=== PATIENT | male | born 1950 | race Caucasian/White ===

== ENCOUNTER 2020-01-09 13:56 | Outpatient (REF) | payer MEDICARE, MEDICAID, SELFPAY ==
[2020-01-09 14:29] LABS: MANUAL DIFF FLAG NO
[2020-01-09 14:42] LABS: Basophils Absolute Auto 0.1 X10*3/uL (0.0-0.2); Basophils Percent Auto 0.8 % (0-2); Eosinophils Absolute Auto 0.8 X10*3/uL (0.0-0.4); Eosinophils Percent Auto 8.6 % (0-4); Hematocrit 43.3 % (42-52); Hemoglobin 14.8 g/dl (14.0-18.0); Imm Gran Abs Auto 0.04 X10*3/uL (0.00-0.03); Imm Gran Pct Auto 0.4 % (0.0-0.4); Lymphocytes Absolute Auto 2.7 X10*3/uL (1.2-4.9); Lymphocytes Percent Auto 29.6 % (20-40); Mean Corpuscular HGB Conc 34.2 g/dl (31.0-36.0); Mean Corpuscular Hemoglobin 33.7 pg (27.0-33.0); Mean Corpuscular Volume 98.6 fL (80-98); Mean Platelet Volume 10.1 fL (9.4-12.4); Monocytes Absolute Auto 1.2 X10*3/uL (0.1-1.2); Neutrophils Absolute Auto 4.3 X10*3/uL (2.0-8.3); Neutrophils Percent Auto 47.6 % (45-73); Platelet Count 204 X10*3/uL (160-400); Red Blood Count 4.39 X10*6/uL (4.60-5.80); Red Cell Distribution Width 12.4 % (11.0-16.0)
[2020-01-09 14:51] LABS: Estimated Average Glucose 120 mg/dL; Hemoglobin A1c % 5.8 %
[2020-01-09 15:23] LABS: Alanine Aminotransferase 21 U/L (0-40); Albumin Level 4.2 g/dL (3.5-5.0); Alkaline Phosphatase 88 U/L (39-117); Aspartate Amino Transferase 21 U/L (5-37); Bilirubin Total 0.7 mg/dL (0.0-1.0); Blood Urea Nitrogen 12 mg/dL (9-16); Estimated Glomerular Filt Rate > 60; Glucose Random 81 mg/dL (60-115); Total Protein 6.5 g/dL (6.5-8.0)
[2020-01-09 15:28] LABS: Free T4 (Free Thyroxine) 0.95 ng/dL (0.71-1.85); Prostate Specific Antigen 0.72 ng/mL (<0.05-4.0); Thyroid Stimulating Hormone 2.27 mIU/mL (0.32-4.0)
[2020-01-09 15:30] LABS: Creatinine Urine 203.42 mg/dL; Microalbum/Creatinine Ratio Ur 7.8 ug/mg cr
[2020-01-09 15:37] LABS: Anion Gap 13 (12-20); Carbon Dioxide 28 mmol/L (22-29); Chloride 105 mmol/L (96-108); Potassium 5.1 mmol/l (3.3-5.1); Sodium 141 mmol/L (135-145)
== END 2020-01-09 13:57 | disposition home or self-care (01) ==
LOC: HO.LAB 13:56
PROVIDERS: PCP Internal Medicine; Visit Provider Internal Medicine
DX: Z12.5 Encounter for screening for malignant neoplasm of prostate (principal); I10 Essential (primary) hypertension; E03.9 Hypothyroidism, unspecified; R73.03 Prediabetes; R35.1 Nocturia; I25.10 Atherosclerotic heart disease of native coronary artery without angina pectoris
CPT/HCPCS: 36415; 80053; 82043; 83036; 84153; 84439; 84443; 85025

== ENCOUNTER → 2020-01-18 13:10 | Outpatient (BNVA) | payer MEDICARE, MEDICAID, SELFPAY | PROVIDERS: PCP Internal Medicine; Referring Provider Internal Medicine; Visit Provider Internal Medicine | DX: I48.20 Chronic atrial fibrillation, unspecified (principal); Z79.01 Long term (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; Z51.81 Encounter for therapeutic drug level monitoring | CPT/HCPCS: 85610; 99211 ==

== ENCOUNTER → 2020-02-06 09:25 | Outpatient (BNVA) | payer MEDICARE, MEDICAID, SELFPAY | PROVIDERS: PCP Internal Medicine; Referring Provider Internal Medicine; Visit Provider Internal Medicine | DX: I48.20 Chronic atrial fibrillation, unspecified (principal); Z51.81 Encounter for therapeutic drug level monitoring; Z79.01 Long term (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 | CPT/HCPCS: 85610; 99211 ==

== ENCOUNTER → 2020-02-21 09:20 | Outpatient (BNVA) | payer MEDICARE, MEDICAID, SELFPAY | PROVIDERS: PCP Internal Medicine; Visit Provider Internal Medicine | DX: I48.20 Chronic atrial fibrillation, unspecified (principal); Z51.81 Encounter for therapeutic drug level monitoring; Z79.01 Long term (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 | CPT/HCPCS: 85610; 99211 ==

== ENCOUNTER → 2020-03-20 09:12 | Outpatient (BNVA) | payer MEDICARE, MEDICAID, SELFPAY | PROVIDERS: PCP Internal Medicine; Visit Provider Internal Medicine | DX: I48.20 Chronic atrial fibrillation, unspecified (principal); Z51.81 Encounter for therapeutic drug level monitoring; Z79.01 Long term (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 | CPT/HCPCS: 85610; 99211 ==

== ENCOUNTER → 2020-04-19 09:49 | Outpatient (BNVA) | payer MEDICARE, MEDICAID, SELFPAY | PROVIDERS: PCP Internal Medicine; Visit Provider Internal Medicine | DX: I48.20 Chronic atrial fibrillation, unspecified (principal); Z51.81 Encounter for therapeutic drug level monitoring; Z79.01 Long term (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 | CPT/HCPCS: 85610; 99211 ==

== ENCOUNTER → 2020-05-02 09:33 | Outpatient (BNVA) | payer MEDICARE, MEDICAID, SELFPAY | PROVIDERS: PCP Internal Medicine; Visit Provider Internal Medicine | DX: I25.10 Atherosclerotic heart disease of native coronary artery without angina pectoris (principal); I48.0 Paroxysmal atrial fibrillation; E78.5 Hyperlipidemia, unspecified; Z79.01 Long term (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 | CPT/HCPCS: 93005; 99212 ==

== ENCOUNTER → 2020-05-03 09:54 | Outpatient (BNVA) | payer MEDICARE, MEDICAID, SELFPAY | PROVIDERS: PCP Internal Medicine; Visit Provider Internal Medicine | DX: I48.20 Chronic atrial fibrillation, unspecified (principal); Z51.81 Encounter for therapeutic drug level monitoring; Z79.01 Long term (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 | CPT/HCPCS: 85610; 99211 ==

== ENCOUNTER → 2020-05-31 09:17 | Outpatient (BNVA) | payer MEDICARE, MEDICAID, SELFPAY | PROVIDERS: PCP Internal Medicine; Visit Provider Internal Medicine | DX: I48.20 Chronic atrial fibrillation, unspecified (principal); Z51.81 Encounter for therapeutic drug level monitoring; Z79.01 Long term (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 | CPT/HCPCS: 85610; 99211 ==

== ENCOUNTER → 2020-06-10 09:54 | Outpatient (REF) | payer MEDICARE, MEDICAID, SELFPAY ==
--- NOTE | 2020-06-10 09:58 | CA_ITS ---
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 The visually estimated ejection fraction is between 60-65%. - There is mild mitral valve regurgitation. Findings Left Ventricle Normal left ventricular cavity size. There is mildly increased left ventricular wall thickness. The left ventricular systolic function is normal. The visually estimated ejection fraction is between 60-65%. There is no evidence of regional wall motion abnormalities. E/E prime ratio is between 8 and 15 consistent with indeterminate filling pressures. Evidence suggests grade I (mild) diastolic dysfunction. Right Ventricle Normal right ventricular cavity size and systolic function. Atria The left atrium is normal in size. The right atrium is normal in size. Aortic Valve There is a normal trileaflet aortic valve. There is no aortic valve stenosis. There is no aortic valve regurgitation. Mitral Valve The mitral valve appears normal. There is mild mitral valve regurgitation. There is no mitral valve stenosis. Pulmonic Valve The pulmonic valve was not well visualized. Tricuspid Valve Normal tricuspid valve structure. There is trace tricuspid valve regurgitation. The pulmonary artery systolic pressure is normal. Great Vessels The asc aorta is normal in size. Venous The inferior vena cava is normal in size and collapses greater than 50% with inspiration. Pericardium/Pleural There is no evidence of pericardial effusion. Prior Study Comparison No significant change compared to prior study dated: 04/24/2019. Measurements 2D Linear Measurements IVSd: 1.15 0.6-0.9/0.6-1.0 cm LVIDd: 4.64 3.9-5.3/4.2-5.9 cm LVIDd Index: 2.04 2.4-3.2/2.2-3.1 cm/m2 LVIDs: 3.55 2.0-3.6 cm LVPWd: 1.24 0.7-1.1 cm Ao Root: 3.70 2.1-3.5 cm LA Diam: 3.90 2.7-3.8/3.0-4.0 cm LAIDs Index: 1.72 1.5-2.3 cm/m2 LV Mass: 257.43 67-162/88-224 g LV Mass Index: 113.41 43-95/49-115 g/m2 LVOT Diam: 2.10 3.0+(-)1.3 cm 2D Systolic Function EF 4C: 69.20 >55% EF 2C: 62.30 >55% EF BiP: 65.30 >55% Mitral Valve MV Pk E: 0.90 MV PK A: 0.80 MV Decel Time: 164.00 E/A: 1.10 E'Lateral: 8.90 E'Medial: 6.38 E/E' Med: 14.10 E/E' Lat: 10.10 PHT: 48.00 MVA PHT: 4.58 Decel Pine: 5.51 Aortic Valve AoV Pk Cristi: 1.03 AoV Pk Grad: 4.00 LVOT LVOT Pk Cristi: 0.83 LVOT Mn Cristi: 0.60 LVOT VTI: 0.20 LVOT Pk Grad: 3.00 LVOT Mn Grad: 2.00 LVOT Diam: 2.10 LVOT Area: 3.46 Diastolic Function MV Pk E: 0.90 MV Pk A: 0.80 E/A: 1.10 E'Medial: 6.38 E/E' Med: 14.10 E' Laterial: 8.90 E/E' Lat: 10.10 Tricuspid Valve TR Pk Cristi: 2.28 TR Pk Grad: 21.00 RA Press: 3.00 RVSP: 24.00 Great Vessels Aorta Ao Root-2D: 3.70 2.0-3.7 cm Ao Asc: 3.50 2.1-3.4 cm Updated in Other Vendor System with Status of Final Jayro Mendez MD electronically signed on 06/10/2020 11:49:02 AM with status of Final
== END ==
LOC: HO.CARD 09:54
PROVIDERS: Visit Provider Internal Medicine
DX: I48.0 Paroxysmal atrial fibrillation (principal); I25.10 Atherosclerotic heart disease of native coronary artery without angina pectoris
CPT/HCPCS: 93306

== ENCOUNTER → 2020-07-03 09:07 | Outpatient (BNVA) | payer MEDICARE, MEDICAID, SELFPAY | PROVIDERS: PCP Internal Medicine; Visit Provider Internal Medicine | DX: I48.20 Chronic atrial fibrillation, unspecified (principal); Z51.81 Encounter for therapeutic drug level monitoring; Z79.01 Long term (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 | CPT/HCPCS: 85610; 99211 ==

== ENCOUNTER → 2020-07-09 10:46 | Outpatient (BNVA) | payer MEDICARE, MEDICAID, SELFPAY | PROVIDERS: PCP Internal Medicine; Visit Provider Internal Medicine | DX: I48.0 Paroxysmal atrial fibrillation (principal); Z79.01 Long term (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; Z51.81 Encounter for therapeutic drug level monitoring | CPT/HCPCS: 85610; 99211 ==

== ENCOUNTER → 2020-07-17 09:20 | Outpatient (BNVA) | payer MEDICARE, MEDICAID, SELFPAY | PROVIDERS: PCP Internal Medicine; Visit Provider Internal Medicine | DX: I48.20 Chronic atrial fibrillation, unspecified (principal); Z51.81 Encounter for therapeutic drug level monitoring; Z79.01 Long term (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 | CPT/HCPCS: 85610; 99211 ==

== ENCOUNTER → 2020-08-14 08:57 | Outpatient (BNVA) | payer MEDICARE, MEDICAID, SELFPAY | PROVIDERS: PCP Internal Medicine; Visit Provider Internal Medicine | DX: I48.20 Chronic atrial fibrillation, unspecified (principal); Z51.81 Encounter for therapeutic drug level monitoring; Z79.01 Long term (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 | CPT/HCPCS: 85610; 99211 ==

== ENCOUNTER → 2020-09-11 09:37 | Outpatient (BNVA) | payer MEDICARE, MEDICAID, SELFPAY | PROVIDERS: PCP Internal Medicine; Visit Provider Internal Medicine | DX: I48.20 Chronic atrial fibrillation, unspecified (principal); Z51.81 Encounter for therapeutic drug level monitoring; Z79.01 Long term (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 | CPT/HCPCS: 85610; 99211 ==

== ENCOUNTER → 2020-10-09 09:21 | Outpatient (BNVA) | payer MEDICARE, MEDICAID, SELFPAY | PROVIDERS: PCP Internal Medicine; Visit Provider Internal Medicine | DX: I48.20 Chronic atrial fibrillation, unspecified (principal); Z51.81 Encounter for therapeutic drug level monitoring; Z79.01 Long term (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 | CPT/HCPCS: 85610; 99211 ==

== ENCOUNTER → 2020-11-06 09:58 | Outpatient (BNVA) | payer MEDICARE, MEDICAID, SELFPAY | PROVIDERS: PCP Internal Medicine; Visit Provider Internal Medicine | DX: I48.20 Chronic atrial fibrillation, unspecified (principal); Z51.81 Encounter for therapeutic drug level monitoring; Z79.01 Long term (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 | CPT/HCPCS: 85610; 99211 ==

== ENCOUNTER → 2020-12-04 09:16 | Outpatient (BNVA) | payer MEDICARE, MEDICAID, SELFPAY | PROVIDERS: PCP Internal Medicine; Visit Provider Internal Medicine | DX: I48.20 Chronic atrial fibrillation, unspecified (principal); Z51.81 Encounter for therapeutic drug level monitoring; Z79.01 Long term (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 | CPT/HCPCS: 85610; 99211 ==

== ENCOUNTER → 2021-01-01 09:13 | Outpatient (BNVA) | payer MEDICARE, MEDICAID, SELFPAY | PROVIDERS: PCP Internal Medicine; Visit Provider Internal Medicine | DX: I48.20 Chronic atrial fibrillation, unspecified (principal); Z51.81 Encounter for therapeutic drug level monitoring; Z79.01 Long term (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 | CPT/HCPCS: 85610; 99211 ==

== ENCOUNTER 2021-01-09 10:27 | Outpatient (REF) | payer MEDICARE, MEDICAID, SELFPAY ==
[2021-01-09 13:39] LABS: MANUAL DIFF FLAG NO
[2021-01-09 13:47] LABS: Basophils Absolute Auto 0.1 X10*3/uL (0.0-0.2); Basophils Percent Auto 0.7 % (0-2); Eosinophils Absolute Auto 0.7 X10*3/uL (0.0-0.4); Eosinophils Percent Auto 9.3 % (0-4); Hematocrit 45.1 % (42-52); Hemoglobin 15.4 g/dl (14.0-18.0); Imm Gran Abs Auto 0.02 X10*3/uL (0.00-0.03); Imm Gran Pct Auto 0.3 % (0.0-0.4); Lymphocytes Absolute Auto 1.8 X10*3/uL (1.2-4.9); Mean Corpuscular HGB Conc 34.1 g/dl (31.0-36.0); Mean Corpuscular Hemoglobin 33.6 pg (27.0-33.0); Mean Corpuscular Volume 98.5 fL (80-98); Mean Platelet Volume 10.5 fL (9.4-12.4); Monocytes Absolute Auto 0.8 X10*3/uL (0.1-1.2); Monocytes Percent Auto 11.2 % (2-11); Neutrophils Absolute Auto 3.9 X10*3/uL (2.0-8.3); Neutrophils Percent Auto 53.5 % (45-73); Platelet Count 196 X10*3/uL (160-400); Red Blood Count 4.58 X10*6/uL (4.60-5.80); Red Cell Distribution Width 12.9 % (11.0-16.0); White Blood Count 7.4 X10*3/uL (4.8-10.8)
[2021-01-09 14:06] LABS: Alanine Aminotransferase 22 U/L (0-40); Albumin Level 4.1 g/dL (3.5-5.0); Alkaline Phosphatase 85 U/L (39-117); Anion Gap 10 (12-20); Aspartate Amino Transferase 22 U/L (5-37); Bilirubin Total 0.8 mg/dL (0.0-1.0); Blood Urea Nitrogen 10 mg/dL (9-16); Calcium 9.2 mg/dL (8.4-10.2); Carbon Dioxide 28 mmol/L (22-29); Chloride 108 mmol/L (96-108); Cholesterol 116 mg/dL; Estimated Glomerular Filt Rate > 60; Glucose Random 112 mg/dL (60-115); HDL Cholesterol 24 mg/dL; LDL Cholesterol Calculated 49 mg/dl; Potassium 4.7 mmol/L (3.3-5.1); Sodium 141 mmol/L (135-145); Total Protein 6.2 g/dL (6.5-8.0); Triglycerides 215 mg/dL
[2021-01-09 14:27] LABS: Thyroid Stimulating Hormone 1.84 uIU/mL (0.32-4.0)
== END 2021-01-09 10:28 | disposition home or self-care (01) ==
LOC: HO.10HDL 10:27
PROVIDERS: Visit Provider Internal Medicine
DX: E03.9 Hypothyroidism, unspecified (principal); I48.0 Paroxysmal atrial fibrillation; E78.00 Pure hypercholesterolemia, unspecified; I25.10 Atherosclerotic heart disease of native coronary artery without angina pectoris
CPT/HCPCS: 36415; 80053; 80061; 84439; 84443; 85025

== ENCOUNTER → 2021-01-29 09:32 | Outpatient (BNVA) | payer MEDICARE, MEDICAID, SELFPAY | PROVIDERS: PCP Internal Medicine; Visit Provider Internal Medicine | DX: I48.20 Chronic atrial fibrillation, unspecified (principal); Z51.81 Encounter for therapeutic drug level monitoring; Z79.01 Long term (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 | CPT/HCPCS: 85610; 99211 ==

== ENCOUNTER → 2021-02-19 09:08 | Outpatient (BNVA) | payer MEDICARE, MEDICAID, SELFPAY | PROVIDERS: PCP Internal Medicine; Visit Provider Internal Medicine | DX: I48.20 Chronic atrial fibrillation, unspecified (principal); Z51.81 Encounter for therapeutic drug level monitoring; Z79.01 Long term (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 | CPT/HCPCS: 85610; 99211 ==

== ENCOUNTER → 2021-03-19 09:35 | Outpatient (BNVA) | payer MEDICARE, MEDICAID, SELFPAY | PROVIDERS: PCP Internal Medicine; Visit Provider Internal Medicine | DX: I48.20 Chronic atrial fibrillation, unspecified (principal); Z51.81 Encounter for therapeutic drug level monitoring; Z79.01 Long term (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 | CPT/HCPCS: 85610; 99211 ==

== ENCOUNTER 2021-04-02 09:13 | Emergency (ER) | payer MEDICARE, MEDICAID, SELFPAY ==
[2021-04-02 09:53] VITALS: BP 147/76; PULSE 61; RESP 19; TEMP 36.6; O2SAT 100; BMI 33.5
--- NOTE | 2021-04-02 13:01 | ED.GENADULT ---
HPI - General Adult General Chief complaint: General Medical Stated complaint: hemmhroids History of Present Illness HPI narrative: 70-year-old male presents to the ED for rectal pain. Patient states he was doing number 2 And was straining and felt a mass at rectum and had blood on toilet tissue after wiping. Patient denies any abdominal pain, weakness, nausea, vomiting, any recent trauma. Patient states he thinks he have a hemorrhoid Related Data Home Medications Medication Instructions Recorded Confirmed atorvastatin 40 mg tablet 40 mg PO DAILY 05/02/20 07/03/20 cholecalciferol (vitamin D3) 25 25 mcg PO DAILY 05/02/20 07/03/20 mcg (1,000 unit) capsule levothyroxine 88 mcg tablet 88 mcg PO DAILY 05/02/20 07/03/20 metoprolol tartrate 50 mg tablet 50 mg PO BID 05/02/20 07/03/20 nitroglycerin 0.3 mg sublingual 0.3 mg SUBLINGUAL Q5M PRN 05/02/20 07/03/20 tablet omega-3 fatty acids 1,000 mg 1,000 mg PO DAILY 05/02/20 07/03/20 capsule (Fish Oil Concentrate) Previous Rx's Medication Instructions Recorded warfarin 7.5 mg tablet 7.5 mg PO DAILY #90 tab 01/18/20 docusate sodium 100 mg capsule 100 mg PO BID 7 Days #14 cap 04/02/21 (Colace) lidocaine 3 %-hydrocortisone 0.5 % 1 appl TOPICAL BID 7 Days #28.35 g 04/02/21 topical cream (Lidocort) Allergies Allergy/AdvReac Type Severity Reaction Status Date / Time No Known Allergies Allergy Verified 03/19/21 09:39 Review of Systems Review of Systems: Hemorrhoid. Blood in tissue. Rectal pain Yes all other systems are reviewed and are negative [facility] Past Medical History Medical History (Updated 04/02/21 @ 13:20 by VIRGIL Olea) Atherosclerotic cardiovascular disease Other and unspecified hyperlipidemia PAF (paroxysmal atrial fibrillation) Surgical History History of cardiac catheterization (~12/2011) Family History Family History Father Cancer Mother No problems noted. Social History Social History Advance Directives: No Advance Directives Information Provided: No Physical Exam Vital Signs: Vital Signs: Last Vital Signs Temp 98 F 04/02/21 09:53 Pulse 61 04/02/21 09:53 Resp 19 04/02/21 09:53 BP 147/76 H 04/02/21 09:53 Pulse Ox 100 04/02/21 09:53 BMI result Body Mass Index 33.5 Const: General: cooperative, healthy appearing, comfortable, no acute distress, well developed, alert, awake and Physically active Orientation/consciousness: patient oriented x3 HENMT: Head: Yes normal to inspection, Yes No palpable skull fracture present, Yes normocephalic, Yes atraumatic and No abrasion Eyes: General: appearance normal, both eyes and all related structures Neck: Neck: Yes normal visual inspection, Yes full ROM, Yes no lymphadenopathy, Yes no meningeal signs, Yes trachea midline, Yes supple, No anterior neck swelling and No tender Chest: Chest palpation & inspection: normal inspection of the chest and normal palpation of entire chest wall Resp: Effort & Inspection: normal respiratory effort and able to speak in complete sentences Auscultation: clear to auscultation bilaterally Cardio: Jugular venous distension: no JVD Heart sounds: S1 normal heart sound present and S2 normal heart sound present GI: Other: Recta exam positive for external hemmhroid that is not thrombosed. Inspection: Yes normal to inspection and No abdominal wall ecchymosis Palpation (GI): Soft to palpation, not firm, nontender, no guarding and not rigid : General: No CVA tenderness and Yes no CVA tenderness Back/Spine/Pelvis: Back: no CVA tenderness, No CVA tenderness and No back tenderness Skin: General skin exam: no rashes or lesions noted and elasticity normal Neuro: General: patient oriented x3, gait normal, no meningeal signs and CN's II-XI intact bilaterally Cranial nerves: Yes CN's II-XII intact bilaterally Extrem: General: Yes normal to inspection and Yes full ROM Psych: Appearance: grossly normal, well kempt and not disheveled Course Course Course Narrative: External hemorrhoid Reevaluation(s) Reevaluation #1: No hemorrhoid excision indicated. Patient will be discharged with stool softener, and rectal cream. Time: 13:18 Medical Decision Making MDM Narrative Medical decision making narrative: external hemmhroids Discharge Plan Discharge Clinical Impression: External hemorrhoids Patient Disposition: Home, Self-Care Instructions: Hemorrhoids (ED) Additional Instructions: Return to the ED for worsening pain, profuse bleeding, weakness, dizziness, or any other concerning symptoms Prescriptions: New lidocaine HCl-hydrocortison ac [Lidocort] 3-0.5 % cream 1 appl topical BID 7 Days Qty: 28.35 RF: 0 docusate sodium [Colace] 100 mg capsule 100 mg PO BID 7 Days Qty: 14 RF: 0 No Action warfarin 7.5 mg tablet 7.5 mg PO DAILY Qty: 90 RF: 0 metoprolol tartrate 50 mg tablet 50 mg PO BID RF: 0 levothyroxine 88 mcg tablet 88 mcg PO DAILY RF: 0 atorvastatin 40 mg tablet 40 mg PO DAILY RF: 0 cholecalciferol (vitamin D3) 25 mcg (1,000 unit) capsule 25 mcg PO DAILY RF: 0 omega-3 fatty acids [Fish Oil Concentrate] 1,000 mg capsule 1,000 mg PO DAILY RF: 0 nitroglycerin 0.3 mg tablet, sublingual 0.3 mg sublingual Q5M PRNRF: 0 Referrals: Onofre Orozco MD [Physician] - 2 days (External hemorrhoid) Stand Alone Forms: Work/School Release Interventions: ED Discharge Assessment Last Done: 04/02/21 13:31 Discharge Date/Time: 04/02/21 13:32 Print Language: [place]
== END 2021-04-02 13:32 | disposition home or self-care (01) ==
PROVIDERS: Emergency Provider Emergency Medicine; PCP Internal Medicine
DX: K64.4 Residual hemorrhoidal skin tags (principal); E78.49 Other hyperlipidemia; I48.0 Paroxysmal atrial fibrillation; Z79.02 Long term (current) use of antithrombotics/antiplatelets; Z79.01 Long term (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
CPT/HCPCS: 99283

== ENCOUNTER → 2021-04-15 09:01 | Outpatient (BNVA) | payer MEDICARE, MEDICAID, SELFPAY | PROVIDERS: PCP Internal Medicine; Visit Provider Internal Medicine | DX: I48.20 Chronic atrial fibrillation, unspecified (principal); Z51.81 Encounter for therapeutic drug level monitoring; Z79.01 Long term (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 | CPT/HCPCS: 85610; 99211 ==

== ENCOUNTER → 2021-04-17 08:11 | Outpatient (BNVA) | payer MEDICARE, MEDICAID, SELFPAY | PROVIDERS: PCP Internal Medicine; Referring Provider Internal Medicine; Visit Provider Surgery | DX: K64.8 Other hemorrhoids (principal) | CPT/HCPCS: 46600; 99202 ==

== ENCOUNTER → 2021-05-27 09:51 | Outpatient (BNVA) | payer MEDICARE, MEDICAID, SELFPAY | PROVIDERS: PCP Internal Medicine; Visit Provider Internal Medicine | DX: I48.20 Chronic atrial fibrillation, unspecified (principal); Z51.81 Encounter for therapeutic drug level monitoring; Z79.01 Long term (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 | CPT/HCPCS: 85610; 99211 ==

== ENCOUNTER → 2021-06-09 15:04 | Outpatient (BNVA) | payer MEDICARE, MEDICAID, SELFPAY | PROVIDERS: PCP Internal Medicine; Referring Provider Internal Medicine; Visit Provider Internal Medicine | DX: I25.10 Atherosclerotic heart disease of native coronary artery without angina pectoris (principal); I48.0 Paroxysmal atrial fibrillation; E78.5 Hyperlipidemia, unspecified | CPT/HCPCS: 93005; 99212 ==

== ENCOUNTER → 2021-06-25 09:47 | Outpatient (BNVA) | payer MEDICARE, MEDICAID, SELFPAY | PROVIDERS: PCP Internal Medicine; Visit Provider Internal Medicine | DX: I48.20 Chronic atrial fibrillation, unspecified (principal); Z51.81 Encounter for therapeutic drug level monitoring; Z79.01 Long term (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 | CPT/HCPCS: 85610; 99211 ==

== ENCOUNTER → 2021-07-25 09:32 | Outpatient (BNVA) | payer MEDICARE, MEDICAID, SELFPAY | PROVIDERS: PCP Internal Medicine; Visit Provider Internal Medicine | DX: I48.20 Chronic atrial fibrillation, unspecified (principal); Z79.01 Long term (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; Z51.81 Encounter for therapeutic drug level monitoring | CPT/HCPCS: 85610; 99211 ==

== ENCOUNTER → 2021-08-26 09:08 | Outpatient (BNVA) | payer MEDICARE, MEDICAID, SELFPAY | PROVIDERS: PCP Internal Medicine; Visit Provider Internal Medicine | DX: I48.20 Chronic atrial fibrillation, unspecified (principal); Z79.01 Long term (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; Z51.81 Encounter for therapeutic drug level monitoring | CPT/HCPCS: 85610; 99211 ==

== ENCOUNTER → 2021-09-26 10:33 | Outpatient (BNVA) | payer MEDICARE, MEDICAID, SELFPAY | PROVIDERS: PCP Internal Medicine; Visit Provider Internal Medicine | DX: I48.20 Chronic atrial fibrillation, unspecified (principal); Z51.81 Encounter for therapeutic drug level monitoring; Z79.01 Long term (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 | CPT/HCPCS: 85610; 99211 ==

== ENCOUNTER → 2021-10-17 09:18 | Outpatient (BNVA) | payer MEDICARE, MEDICAID, SELFPAY | PROVIDERS: PCP Internal Medicine; Visit Provider Internal Medicine | DX: I48.20 Chronic atrial fibrillation, unspecified (principal); Z79.01 Long term (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; Z51.81 Encounter for therapeutic drug level monitoring | CPT/HCPCS: 85610; 99211 ==

== ENCOUNTER → 2021-10-31 08:59 | Outpatient (BNVA) | payer MEDICARE, MEDICAID, SELFPAY | PROVIDERS: PCP Internal Medicine; Visit Provider Internal Medicine | DX: I48.20 Chronic atrial fibrillation, unspecified (principal); Z79.01 Long term (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; Z51.81 Encounter for therapeutic drug level monitoring | CPT/HCPCS: 85610; 99211 ==

== ENCOUNTER → 2021-11-28 09:32 | Outpatient (BNVA) | payer MEDICARE, MEDICAID, SELFPAY | PROVIDERS: PCP Internal Medicine; Visit Provider Internal Medicine | DX: I48.20 Chronic atrial fibrillation, unspecified (principal); Z79.01 Long term (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; Z51.81 Encounter for therapeutic drug level monitoring | CPT/HCPCS: 85610; 99211 ==

== ENCOUNTER → 2022-01-02 09:42 | Outpatient (BNVA) | payer MEDICARE, MEDICAID, SELFPAY | PROVIDERS: PCP Internal Medicine; Visit Provider Internal Medicine | DX: I48.20 Chronic atrial fibrillation, unspecified (principal); Z79.01 Long term (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; Z51.81 Encounter for therapeutic drug level monitoring | CPT/HCPCS: 85610; 99211 ==

== ENCOUNTER → 2022-02-06 09:50 | Outpatient (BNVA) | payer MEDICARE, MEDICAID, SELFPAY | PROVIDERS: PCP Internal Medicine; Visit Provider Internal Medicine | DX: I48.20 Chronic atrial fibrillation, unspecified (principal); Z51.81 Encounter for therapeutic drug level monitoring; Z79.01 Long term (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 | CPT/HCPCS: 85610; 99211 ==

== ENCOUNTER → 2022-03-13 09:27 | Outpatient (BNVA) | payer MEDICARE, MEDICAID, SELFPAY | PROVIDERS: PCP Internal Medicine; Visit Provider Internal Medicine | DX: I48.20 Chronic atrial fibrillation, unspecified (principal); Z79.01 Long term (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; Z51.81 Encounter for therapeutic drug level monitoring | CPT/HCPCS: 85610; 99211 ==

== ENCOUNTER → 2022-04-17 09:40 | Outpatient (BNVA) | payer MEDICARE, MEDICAID, SELFPAY | PROVIDERS: PCP Internal Medicine; Visit Provider Internal Medicine | DX: I48.20 Chronic atrial fibrillation, unspecified (principal); Z79.01 Long term (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; Z51.81 Encounter for therapeutic drug level monitoring | CPT/HCPCS: 85610; 99211 ==

== ENCOUNTER 2022-05-12 11:17 | Outpatient (REF) | payer MEDICARE, MEDICAID, SELFPAY ==
[2022-05-12 14:08] LABS: Estimated Average Glucose 120 mg/dL; Hemoglobin A1C 150.3469 umol/L; Hemoglobin A1c % 5.8 %
[2022-05-12 14:12] LABS: Anion Gap 11 (12-20); Blood Urea Nitrogen 11 mg/dL (9-16); Calcium 9.1 mg/dL (8.4-10.2); Carbon Dioxide 26 mmol/L (22-29); Chloride 106 mmol/L (96-108); Estimated Glomerular Filt Rate > 60; Glucose Random 118 mg/dL (60-115); Potassium 4.9 mmol/L (3.3-5.1); Sodium 138 mmol/L (135-145)
[2022-05-12 14:32] LABS: Free T4 (Free Thyroxine) 0.98 ng/dL (0.71-1.85); Thyroid Stimulating Hormone 1.98 uIU/mL (0.32-4.0)
== END 2022-05-12 11:18 | disposition home or self-care (01) ==
LOC: HO.10HDL 11:17
PROVIDERS: Visit Provider Internal Medicine
DX: R73.03 Prediabetes (principal); I10 Essential (primary) hypertension; E03.9 Hypothyroidism, unspecified
CPT/HCPCS: 36415; 80048; 83036; 84439; 84443

== ENCOUNTER → 2022-05-15 09:48 | Outpatient (BNVA) | payer MEDICARE, MEDICAID, SELFPAY | PROVIDERS: PCP Internal Medicine; Visit Provider Internal Medicine | DX: I48.20 Chronic atrial fibrillation, unspecified (principal); Z79.01 Long term (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; Z51.81 Encounter for therapeutic drug level monitoring | CPT/HCPCS: 85610; 99211 ==

== ENCOUNTER → 2022-06-17 09:16 | Outpatient (BNVA) | payer MEDICARE, MEDICAID, SELFPAY | PROVIDERS: PCP Internal Medicine; Visit Provider Internal Medicine | DX: I48.20 Chronic atrial fibrillation, unspecified (principal); Z79.01 Long term (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; Z51.81 Encounter for therapeutic drug level monitoring | CPT/HCPCS: 85610; 99211 ==

== ENCOUNTER → 2022-07-24 09:49 | Outpatient (BNVA) | payer MEDICARE, MEDICAID, SELFPAY | PROVIDERS: PCP Internal Medicine; Visit Provider Internal Medicine | DX: I48.20 Chronic atrial fibrillation, unspecified (principal); Z79.01 Long term (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; Z51.81 Encounter for therapeutic drug level monitoring | CPT/HCPCS: 85610; 99211 ==

== ENCOUNTER → 2022-08-28 09:29 | Outpatient (BNVA) | payer MEDICARE, MEDICAID, SELFPAY | PROVIDERS: PCP Internal Medicine; Visit Provider Internal Medicine | DX: I48.20 Chronic atrial fibrillation, unspecified (principal); Z79.01 Long term (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; Z51.81 Encounter for therapeutic drug level monitoring | CPT/HCPCS: 85610; 99211 ==

== ENCOUNTER → 2022-09-11 09:13 | Outpatient (BNVA) | payer MEDICARE, MEDICAID, SELFPAY | PROVIDERS: PCP Internal Medicine; Visit Provider Internal Medicine | DX: I48.20 Chronic atrial fibrillation, unspecified (principal); Z79.01 Long term (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; Z51.81 Encounter for therapeutic drug level monitoring | CPT/HCPCS: 85610; 99211 ==

== ENCOUNTER 2022-09-29 09:22 | Outpatient (AMB) | payer MEDICARE, MEDICAID, SELFPAY ==
--- NOTE | 2022-09-29 09:36 | A.OFFVIS_ITS ---
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 Overall, doing good. No complaints like angina or shortness of breath or in fact anything cardiac sounding. He states he is getting along fine. Today's blood pressure is on the higher side but he states when he goes to PCP's office the blood pressures are completely normal. [facility] Medical History (Updated 09/29/22 @ 10:05 by Jayro Mendez MD) Atherosclerotic cardiovascular disease Essential hypertension Hemorrhoids with complication Other and unspecified hyperlipidemia PAF (paroxysmal atrial fibrillation) Surgical History History of cardiac catheterization (~12/2011) Family History Father Cancer Mother No problems noted. Social History (Updated 09/29/22 @ 09:40 by Adelaida Krishna) Alcohol intake: never Patient Tobacco Use Status: Current everyday Tobacco user Cigarettes Per Day: 3 Review of Systems Const Denies weakness ENT Denies dizziness Card Denies chest pain, Denies chest pain with activity, Denies syncope, Denies rapid heart rate, Denies pedal edema, Denies edema, Denies leg edema, Denies lightheadedness, Denies palpitations, Denies dyspnea, Denies dyspnea on exertion and Denies orthopnea Resp Denies cough, Denies dyspnea and Denies dyspnea on exertion GI Denies hematochezia and Denies change in stool character Musc Denies abnormal gait, Denies muscle cramps, Denies muscle weakness, Denies numbness, Denies radiating pain into limb and Denies tingling Neuro Denies abnormal gait, Denies dizziness, Denies syncope, Denies numbness, Denies tingling and Denies weakness Endo Denies palpitations Physical Exam Vital Signs: Last Vital Signs Pulse 67 09/29/22 09:38 BP 154/84 H 09/29/22 09:38 BMI result Body Mass Index 35.1 Const General: comfortable and no acute distress Orientation/consciousness: patient oriented x3 HEENT Other: Unremarkable Head: Yes normal to inspection Neck Neck: Yes normal visual inspection Chest Chest palpation & inspection: normal inspection of the chest Resp Auscultation: clear to auscultation bilaterally Cardio Palpation: normal PMI Heart sounds: S1 normal heart sound present, S2 normal heart sound present, no gallops, no murmurs and no rubs GI Palpation (GI): Soft to palpation Back/Spine/Pelvis Other: unremarkable Skin General skin exam: no rashes or lesions noted Neuro General: patient oriented x3 Extrem General: Yes normal to inspection Psych Mental Status: mental status grossly normal Office Procedures EKG Details: EKG with sinus rhythm at 67/Min; right bundle-branch block pattern. [id number], Complete Assessment & Plan Assessment & Plan (1) Atherosclerotic cardiovascular disease: Code(s): I25.10 - Atherosclerotic heart disease of [place] coronary artery without angina pectoris Plan: Previous cardiac studies reviewed. Echocardiogram-04/2019-LVEF 55-60% with mild mitral regurgitation. Wall motion could not be assessed. Myocardial perfusion imaging [id number] perfusion defect with reversible and fixed components basal inferior wall. Cardiac [id number] RCA 100% stenosis status post bare metal stent; no significant disease in the left system He has got absolutely no clinical symptoms, with normal lifestyle. Hence we will continue medical therapy. (2) PAF (paroxysmal atrial fibrillation): Code(s): I48.0 - Paroxysmal atrial fibrillation Plan: He has not had any recent issues. Continue beta-blockers. Continue anticoagulation. (3) Essential hypertension: Code(s): I10 - Essential (primary) hypertension Plan: Today's blood pressure is on the higher side but he states that he goes to PCP's office is completely normal and only the 120s. Hence no changes made today. If able, he can check home blood pressures. (4) Other and unspecified hyperlipidemia: Code(s): E78.5 - Hyperlipidemia, unspecified Plan: On statins. Last LDL 49 mg/dL. We can recheck. Plan Follow-up in 1 year. In the interim, he will call us with concerns. Orders: Orders LDL Cholesterol Direct Today E78.2 - Mixed hyperlipidemia, I25.10 - Atherosc lerotic heart disease of [place] coronary artery without angina pectoris Lipid Panel Today E78.5 - Hyperlipidemia, unspecified, I25.10 - Atherosclerotic heart disease of [place] coronary artery without angina pectoris Liver Panel Today I25.10 - Atherosclerotic heart disease of [place] coronary artery without angina pectoris Coding Level of Care Code Est Pt Level 4 (33992) Diagnoses Atherosclerotic cardiovascular disease I25.10 PAF (paroxysmal atrial fibrillation) I48.0 Essential hypertension I10 Other and unspecified hyperlipidemia E78.5 CPT Codes EKG - CPT: 00554-[id number], Complete ([id number])
[2022-09-29 09:38] VITALS: BP 154/84; PULSE 67; BMI 35.1
== END 2022-09-29 09:57 | disposition home or self-care (01) ==
PROVIDERS: Visit Provider Internal Medicine
DX: I25.10 Atherosclerotic heart disease of native coronary artery without angina pectoris (principal); I48.0 Paroxysmal atrial fibrillation; I10 Essential (primary) hypertension; E78.5 Hyperlipidemia, unspecified
CPT/HCPCS: 93010; 99214

== ENCOUNTER → 2022-09-29 09:22 | Outpatient (BNVA) | payer MEDICARE, MEDICAID, SELFPAY | PROVIDERS: Visit Provider Internal Medicine | DX: I25.10 Atherosclerotic heart disease of native coronary artery without angina pectoris (principal); I48.0 Paroxysmal atrial fibrillation; I10 Essential (primary) hypertension; E78.5 Hyperlipidemia, unspecified | CPT/HCPCS: 93005; 99212 ==

== ENCOUNTER 2022-10-23 09:39 | Outpatient (AMB) | payer MEDICARE, MEDICAID, SELFPAY ==
[2022-10-23 09:50] LABS: Prothrombin Time Whole Bld POC 27.5 sec (11.1-13.5); ~PT, ~INR - Anti Coag Clinic 2.3 (0.9-1.1)
--- NOTE | 2022-10-23 09:52 | MHC.OFFVISCO ---
Intake Intake Visit Reasons: Anticoagulation Allergies No Known Allergies Allergy (Verified 10/23/22 09:40) Medication List - Last Reconciled 10/23/22 by Kate Dunlap RN atorvastatin 40 mg PO DAILY cholecalciferol (vitamin D3) 25 mcg PO DAILY levothyroxine 88 mcg PO DAILY metoprolol tartrate 50 mg PO BID nitroglycerin 0.3 mg sublingual Q5M PRN omega-3 fatty acids (Fish Oil Concentrate) 1,000 mg PO DAILY warfarin 7.5 mg See Protocol PO DAILY Nursing Note INR: 2.3 in therapeutic range Medications and supplements reviewed No changes in health, diet, medications, or supplements, Denies any signs and symptoms of bleeding or bruising or clotting. Bleeding, bruising, clotting discussed Nutritional guidance given Dose: 11.25MG X 2 DAYS/ 7.5MG X 5 DAYS F/U INR: 4 WEEKS Patient verbalizes understanding of instructions given Anti-Coag Initial Assessment Social Hx Patient Tobacco Use Status: Current everyday Tobacco user alcohol intake: never Coding Level of Care Code Est Patient Level 1 Diagnoses Current use of anticoagulant therapy Z79.01 Results AMB INR Fingerstick AMB INR Fingerstick 2.3 Last Edit by Kate Dunlap RN on 10/23/22 09:49 INTERFACING ISSUES Assessment & Plan Assessment & Plan (1) Current use of anticoagulant therapy: Code(s): Z79.01 - [facility] (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 Category: Medical
== END 2022-10-23 09:53 | disposition home or self-care (01) ==
LOC: HO.ACS 09:39
PROVIDERS: PCP Internal Medicine; Visit Provider Internal Medicine
DX: Z79.01 Long term (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 (principal)

== ENCOUNTER → 2022-10-23 09:39 | Outpatient (BNVA) | payer MEDICARE, MEDICAID, SELFPAY | PROVIDERS: PCP Internal Medicine; Visit Provider Internal Medicine | DX: I48.20 Chronic atrial fibrillation, unspecified (principal); Z79.01 Long term (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; Z51.81 Encounter for therapeutic drug level monitoring | CPT/HCPCS: 85610; 99211 ==

== ENCOUNTER 2022-11-27 09:23 | Outpatient (AMB) | payer MEDICARE, MEDICAID, SELFPAY ==
[2022-11-27 09:33] LABS: Prothrombin Time Whole Bld POC 30.5 sec (11.1-13.5); ~PT, ~INR - Anti Coag Clinic 2.5 (0.9-1.1)
--- NOTE | 2022-11-27 09:34 | MHC.OFFVISCO ---
Intake Intake Visit Reasons: Anticoagulation Allergies No Known Allergies Allergy (Verified 11/27/22 09:27) Medication List - Last Reconciled 11/27/22 by Shirley Darden RN atorvastatin 40 mg PO DAILY cholecalciferol (vitamin D3) 25 mcg PO DAILY levothyroxine 88 mcg PO DAILY metoprolol tartrate 50 mg PO BID nitroglycerin 0.3 mg sublingual Q5M PRN omega-3 fatty acids (Fish Oil Concentrate) 1,000 mg PO DAILY warfarin 7.5 mg See Protocol PO DAILY Nursing Note Amb to ACS feeling well Medications and supplements reviewed No changes in health, diet, medications, or supplements Denies any unusual signs and symptoms of bruising, bleeding Denies any new Chest pain, SOB, or clotting INR: 2.5 in therapeutic range Nutritional guidance given: balance greens and reds in diet Dose: continue usual dosing;11.25mg x 2 days and 7.5mg x 5 days F/U INR: 4 weeks Patient verbalizes understanding of instructions given with accurate read back/ teach back of dosing Anti-Coag Initial Assessment Social Hx Patient Tobacco Use Status: Current everyday Tobacco user alcohol intake: never Coding Level of Care Code Est Patient Level 1 Diagnoses Current use of anticoagulant therapy Z79.01 Time Spent (min) 15 Assessment & Plan Assessment & Plan (1) Current use of anticoagulant therapy: Code(s): 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
== END 2022-11-27 09:47 | disposition home or self-care (01) ==
LOC: HO.ACS 09:23
PROVIDERS: PCP Internal Medicine; Visit Provider Internal Medicine
DX: Z79.01 Long term (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 (principal)

== ENCOUNTER → 2022-11-27 09:23 | Outpatient (BNVA) | payer MEDICARE, MEDICAID, SELFPAY | PROVIDERS: PCP Internal Medicine; Visit Provider Internal Medicine | DX: I48.20 Chronic atrial fibrillation, unspecified (principal); Z79.01 Long term (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; Z51.81 Encounter for therapeutic drug level monitoring | CPT/HCPCS: 85610; 99211 ==

== ENCOUNTER 2022-12-30 09:44 | Outpatient (AMB) | payer MEDICARE, MEDICAID, SELFPAY ==
--- NOTE | 2022-12-30 09:55 | MHC.OFFVISCO ---
Intake Intake Visit Reasons: Anticoagulation Allergies No Known Allergies Allergy (Verified 12/30/22 09:46) Medication List - Last Reconciled 12/30/22 by Flakita Miner RN atorvastatin 40 mg PO DAILY cholecalciferol (vitamin D3) 25 mcg PO DAILY levothyroxine 88 mcg PO DAILY metoprolol tartrate 50 mg PO BID nitroglycerin 0.3 mg sublingual Q5M PRN omega-3 fatty acids (Fish Oil Concentrate) 1,000 mg PO DAILY warfarin 7.5 mg See Protocol PO DAILY Nursing Note NO CP,SOB,DIET/MED CHANGES,FALLS OR SX OF BLEEDING. CONTINUE PRESENT DOSE AND FOLLOW-UP IN 4 WEEKS. GOOD UNDERSTANDING OF DOSING INSTR. Anti-Coag Initial Assessment Social Hx Patient Tobacco Use Status: Current everyday Tobacco user alcohol intake: never Coding Level of Care Code Est Patient Level 1 Diagnoses Current use of anticoagulant therapy Z79.01 Results AMB INR Fingerstick AMB INR Fingerstick 2.5 Last Edit by Flakita Miner RN on 12/30/22 09:53 Assessment & Plan Assessment & Plan (1) Current use of anticoagulant therapy: Code(s): Z79.01 - [facility] (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 Category: Medical
[2022-12-31 10:01] LABS: Prothrombin Time Whole Bld POC 29.9 sec (11.1-13.5); ~PT, ~INR - Anti Coag Clinic 2.5 (0.9-1.1)
== END 2022-12-30 09:57 | disposition home or self-care (01) ==
LOC: HO.ACS 09:44
PROVIDERS: PCP Internal Medicine; Visit Provider Internal Medicine
DX: Z79.01 Long term (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 (principal)

== ENCOUNTER → 2022-12-30 09:44 | Outpatient (BNVA) | payer MEDICARE, MEDICAID, SELFPAY | PROVIDERS: PCP Internal Medicine; Visit Provider Internal Medicine | DX: I48.20 Chronic atrial fibrillation, unspecified (principal); Z79.01 Long term (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; Z51.81 Encounter for therapeutic drug level monitoring | CPT/HCPCS: 85610; 99211 ==

== ENCOUNTER 2023-01-15 11:57 | Outpatient (REF) | payer MEDICARE, MEDICAID, SELFPAY ==
[2023-01-15 14:16] LABS: Prostate Specific Antigen Scr 0.91 ng/mL (<0.05-4.0)
[2023-01-15 14:28] LABS: Free T4 (Free Thyroxine) 0.95 ng/dL (0.71-1.85); Thyroid Stimulating Hormone 1.62 uIU/mL (0.32-4.0)
== END 2023-01-15 11:58 | disposition home or self-care (01) ==
LOC: HO.10HDL 11:57
PROVIDERS: Visit Provider Internal Medicine
DX: Z12.5 Encounter for screening for malignant neoplasm of prostate (principal); E03.9 Hypothyroidism, unspecified; R35.1 Nocturia
CPT/HCPCS: 36415; 84153; 84439; 84443

== ENCOUNTER 2023-02-05 09:46 | Outpatient (AMB) | payer MEDICARE, MEDICAID, SELFPAY ==
--- NOTE | 2023-02-05 10:27 | MHC.OFFVISCO ---
Intake Intake Visit Reasons: Anticoagulation Allergies No Known Allergies Allergy (Verified 02/05/23 10:24) Medication List - Last Reconciled 02/05/23 by Kate Dunlap RN atorvastatin 40 mg PO DAILY cholecalciferol (vitamin D3) 25 mcg PO DAILY levothyroxine 88 mcg PO DAILY metoprolol tartrate 50 mg PO BID nitroglycerin 0.3 mg sublingual Q5M PRN omega-3 fatty acids (Fish Oil Concentrate) 1,000 mg PO DAILY warfarin 7.5 mg See Protocol PO DAILY Nursing Note PT VISIT DELAYED 5 MIN DUE TO INTERFACING ISSUES WITH METER INR: 2.2 in therapeutic range Medications and supplements reviewed No changes in health, diet, medications, or supplements, Denies any signs and symptoms of bleeding or bruising or clotting. Bleeding, bruising, clotting discussed Nutritional guidance given Dose: 11.25MG X 2 DAYS/ 7.5MG X 5 DAYS F/U INR: 4 WEEKS Patient verbalizes understanding of instructions given Anti-Coag Initial Assessment Social Hx Patient Tobacco Use Status: Current everyday Tobacco user alcohol intake: never Coding Level of Care Code Est Patient Level 1 Diagnoses Current use of anticoagulant therapy Z79.01 Assessment & Plan Assessment & Plan (1) Current use of anticoagulant therapy: Code(s): Z79.01 - jail (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 Category: Medical
[2023-02-05 10:31] LABS: Prothrombin Time Whole Bld POC 26.1 sec (11.1-13.5); ~PT, ~INR - Anti Coag Clinic 2.2 (0.9-1.1)
== END 2023-02-05 10:34 | disposition home or self-care (01) ==
LOC: HO.ACS 09:46
PROVIDERS: PCP Internal Medicine; Visit Provider Internal Medicine
DX: Z79.01 Long term (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 (principal)

== ENCOUNTER → 2023-02-05 09:46 | Outpatient (BNVA) | payer MEDICARE, MEDICAID, SELFPAY | PROVIDERS: PCP Internal Medicine; Visit Provider Internal Medicine | DX: I48.20 Chronic atrial fibrillation, unspecified (principal); Z79.01 Long term (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; Z51.81 Encounter for therapeutic drug level monitoring | CPT/HCPCS: 85610; 99211 ==

== ENCOUNTER 2023-03-12 08:38 | Outpatient (AMB) | payer MEDICARE, MEDICAID, SELFPAY ==
--- NOTE | 2023-03-12 09:07 | MHC.OFFVISCO ---
Intake Intake Visit Reasons: Anticoagulation Allergies No Known Allergies Allergy (Verified 03/12/23 09:04) Medication List - Last Reconciled 03/12/23 by Suzanne Chairez RN atorvastatin 40 mg PO DAILY cholecalciferol (vitamin D3) 25 mcg PO DAILY levothyroxine 88 mcg PO DAILY metoprolol tartrate 50 mg PO BID nitroglycerin 0.3 mg sublingual Q5M PRN omega-3 fatty acids (Fish Oil Concentrate) 1,000 mg PO DAILY warfarin 7.5 mg See Protocol PO DAILY Nursing Note INR: 2.1- in therapeutic range of 2-3 Medications and supplements reviewed- no changes No changes in health, diet, medications, or supplements, Denies any signs and symptoms of bleeding or bruising or clotting. 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
[2023-03-12 09:09] LABS: Prothrombin Time Whole Bld POC 24.7 sec (11.1-13.5); ~PT, ~INR - Anti Coag Clinic 2.1 (0.9-1.1)
== END 2023-03-12 09:17 | disposition home or self-care (01) ==
LOC: HO.ACS 08:38
PROVIDERS: PCP Internal Medicine; Visit Provider Internal Medicine
DX: Z79.01 Long term (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 (principal)

== ENCOUNTER → 2023-03-12 08:38 | Outpatient (BNVA) | payer MEDICARE, MEDICAID, SELFPAY | PROVIDERS: PCP Internal Medicine; Visit Provider Internal Medicine | DX: I48.20 Chronic atrial fibrillation, unspecified (principal); Z51.81 Encounter for therapeutic drug level monitoring; Z79.01 Long term (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 | CPT/HCPCS: 85610; 99211 ==

== ENCOUNTER 2023-04-16 09:00 | Outpatient (AMB) | payer MEDICARE, MEDICAID, SELFPAY ==
[2023-04-16 09:09] LABS: Prothrombin Time Whole Bld POC 41.6 sec (11.1-13.5); ~PT, ~INR - Anti Coag Clinic 3.5 (0.9-1.1)
--- NOTE | 2023-04-16 09:14 | MHC.OFFVISCO ---
Intake Intake Visit Reasons: Anticoagulation Allergies No Known Allergies Allergy (Verified 04/16/23 09:01) Medication List - Last Reconciled 04/16/23 by Shirley Wang, RN atorvastatin 40 mg PO DAILY cholecalciferol (vitamin D3) 25 mcg PO DAILY levothyroxine 88 mcg PO DAILY metoprolol tartrate 50 mg PO BID nitroglycerin 0.3 mg sublingual Q5M PRN omega-3 fatty acids (Fish Oil Concentrate) 1,000 mg PO DAILY warfarin 7.5 mg See Protocol PO DAILY Nursing Note PT TO ACS WITH NO C/O UNUSUAL BRUISING OR BLEEDING. NO CHEST PAIN OR SOB. NO CHANGES IN MEDICATIONS. INR 3.5 (RANGE 2-3). PLAN IS TO TAKE 1/5 TAB (3.75MG) TODAY THEN TO RESUME REGULAR DOSING AND TO INCREASE GREENS TODAY AND TOMORROW. PT VERBALIZES UNDERSTANDING. Anti-Coag Initial Assessment Social Hx Patient Tobacco Use Status: Current everyday Tobacco user alcohol intake: never Coding Level of Care Code Est Patient Level 1 Diagnoses Current use of anticoagulant therapy Z79.01 Assessment & Plan Assessment & Plan (1) Current use of anticoagulant therapy: Code(s): Z79.01 - jail (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 Category: Medical
== END 2023-04-16 09:25 | disposition home or self-care (01) ==
LOC: HO.ACS 09:00
PROVIDERS: PCP Internal Medicine; Visit Provider Internal Medicine
DX: Z79.01 Long term (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 (principal)

== ENCOUNTER → 2023-04-16 09:00 | Outpatient (BNVA) | payer MEDICARE, MEDICAID, SELFPAY | PROVIDERS: PCP Internal Medicine; Visit Provider Internal Medicine | DX: I48.20 Chronic atrial fibrillation, unspecified (principal); Z79.01 Long term (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; Z51.81 Encounter for therapeutic drug level monitoring | CPT/HCPCS: 85610; 99211 ==

== ENCOUNTER 2023-04-30 09:17 | Outpatient (AMB) | payer MEDICARE, MEDICAID, SELFPAY ==
[2023-04-30 09:22] LABS: Prothrombin Time Whole Bld POC 44.6 sec (11.1-13.5); ~PT, ~INR - Anti Coag Clinic 3.7 (0.9-1.1)
--- NOTE | 2023-04-30 09:29 | MHC.OFFVISCO ---
Intake Intake Visit Reasons: Anticoagulation Allergies No Known Allergies Allergy (Verified 04/30/23 09:17) Medication List - Last Reconciled 04/30/23 by Shirley Darden RN atorvastatin 40 mg PO DAILY cholecalciferol (vitamin D3) 25 mcg PO DAILY levothyroxine 88 mcg PO DAILY metoprolol tartrate 50 mg PO BID nitroglycerin 0.3 mg sublingual Q5M PRN omega-3 fatty acids (Fish Oil Concentrate) 1,000 mg PO DAILY warfarin 7.5 mg See Protocol PO DAILY Nursing Note Amb to [facility] feeling well Medications and supplements reviewed No changes in health, medications, or supplements, sts he has noticed that he hasn't been eating a lot of greens- sts he does all his cooking Denies any unusual signs and symptoms of bruising, bleeding Denies any new Chest pain, SOB, or clotting INR: 3.7 above therapeutic range Nutritional guidance given: instructed regarding getting greens back into diet and be consistent, may need weekly dosing change if not Dose: decrease dose today to 3.75mg, have greens then resume usual dosing; 7.5mg x 5 days and 11.25mg x 2 days F/U INR: 2 weeks Patient verbalizes understanding of instructions given with accurate read back/ teach back of dosing Anti-Coag Initial Assessment Social Hx Patient Tobacco Use Status: Current everyday Tobacco user alcohol intake: never Questionnaires HAS-BLED Does the patient had uncontrolled Hypertension?: No Does the patient have renal disease?: No Does the patient have liver disease?: No Does the patient have a history of stroke?: No Has the patient had major bleeding or predisposition to bleeding?: No Does the patient have labile INRs?: No Is the patient over 65 years of age?: Yes Is the patient on medications that gives them a predisposition to bleeding?: Yes Does the patient use alcohol?: Yes HAS-BLED Score: 3 CHADSVASC Age: 66-74 Gender: Male Does the patient have a history of Hypertension?: No Does the patient have a history of Stroke/TIA/Thromboembolism?: No Does the patient have a history of Vascular Disease (prior AR, PAD or aortic plaque)?: Yes Does the patient have a history of Diabetes?: No CHADS VACS Score: 2 Agusto Prediction Score Rsk VTE Active Cancer: No Previous VTE, excluding superficial vein thrombosis: No Reduced mobility: No Already known Thrombophilic Condition: Yes With-in last month Trauma and/or Surgery: No Elderly 70 year or older: Yes Heart and/or Respiratory Failure: No Acute Myocardial infarction and/or Ischemic Stroke: Yes Acute Infection and/or Rheumatologic Disorder: No Obesity (BMI 30 or greater): No Ongoing Hormonal Treatment: No Score: 5 Agusto Score less than 4; Low Risk of VTE Agusto Score 4 or greater; High Risk of VTE Coding Level of Care Code Est Patient Level 1 Diagnoses Current use of anticoagulant therapy Z79.01 Time Spent (min) 15 Assessment & Plan Assessment & Plan (1) Current use of anticoagulant therapy: Code(s): Z79.01 - MCFP (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 Category: Medical
== END 2023-04-30 09:39 | disposition home or self-care (01) ==
LOC: HO.ACS 09:17
PROVIDERS: PCP Internal Medicine; Visit Provider Internal Medicine
DX: Z79.01 Long term (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 (principal)

== ENCOUNTER → 2023-04-30 09:17 | Outpatient (BNVA) | payer MEDICARE, MEDICAID, SELFPAY | PROVIDERS: PCP Internal Medicine; Visit Provider Internal Medicine | DX: I48.20 Chronic atrial fibrillation, unspecified (principal); Z79.01 Long term (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; Z51.81 Encounter for therapeutic drug level monitoring | CPT/HCPCS: 85610; 99211 ==

== ENCOUNTER 2023-05-14 09:19 | Outpatient (AMB) | payer MEDICARE, MEDICAID, SELFPAY ==
[2023-05-14 09:27] LABS: ~PT, ~INR - Anti Coag Clinic 2.2 (0.9-1.1)
--- NOTE | 2023-05-14 09:31 | MHC.OFFVISCO ---
Intake Intake Visit Reasons: Anticoagulation Allergies No Known Allergies Allergy (Verified 05/14/23 09:23) Medication List - Last Reconciled 05/14/23 by Flakita Miner RN atorvastatin 40 mg PO DAILY cholecalciferol (vitamin D3) 25 mcg PO DAILY levothyroxine 88 mcg PO DAILY metoprolol tartrate 50 mg PO BID nitroglycerin 0.3 mg sublingual Q5M PRN omega-3 fatty acids (Fish Oil Concentrate) 1,000 mg PO DAILY warfarin 7.5 mg See Protocol PO DAILY Nursing Note NO CP,SOB,DIET/MED CHANGES,FALLS OR SX OF BLEEDING. CONTINUE PRESENT DOSE AND FOLLOW-UP IN 3 WEEKS GOOD UNDERSTANDING OF DOSING INSTR. Anti-Coag Initial Assessment Social Hx Patient Tobacco Use Status: Current everyday Tobacco user alcohol intake: never Coding Level of Care Code Est Patient Level 1 Diagnoses Current use of anticoagulant therapy Z79.01 Assessment & Plan Assessment & Plan (1) Current use of anticoagulant therapy: Code(s): Z79.01 - linen clerk (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 Category: Medical
== END 2023-05-14 09:34 | disposition home or self-care (01) ==
LOC: HO.ACS 09:19
PROVIDERS: PCP Internal Medicine; Visit Provider Internal Medicine
DX: Z79.01 Long term (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 (principal)

== ENCOUNTER → 2023-05-14 09:19 | Outpatient (BNVA) | payer MEDICARE, MEDICAID, SELFPAY | PROVIDERS: PCP Internal Medicine; Visit Provider Internal Medicine | DX: I48.20 Chronic atrial fibrillation, unspecified (principal); Z79.01 Long term (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; Z51.81 Encounter for therapeutic drug level monitoring | CPT/HCPCS: 85610; 99211 ==

== ENCOUNTER 2023-06-02 09:28 | Outpatient (AMB) | payer MEDICARE, MEDICAID, SELFPAY ==
--- NOTE | 2023-06-02 09:35 | MHC.OFFVISCO ---
Intake Intake Visit Reasons: Anticoagulation Allergies No Known Allergies Allergy (Verified 06/02/23 09:31) Medication List - Last Reconciled 06/02/23 by Suzanne Chairez RN atorvastatin 40 mg PO DAILY cholecalciferol (vitamin D3) 25 mcg PO DAILY levothyroxine 88 mcg PO DAILY metoprolol tartrate 50 mg PO BID nitroglycerin 0.3 mg sublingual Q5M PRN omega-3 fatty acids (Fish Oil Concentrate) 1,000 mg PO DAILY warfarin 7.5 mg See Protocol PO DAILY Nursing Note INR: 2.1- in therapeutic range of 2-3 Medications and supplements reviewed- no changes No changes in health, diet, medications, or supplements, Denies any signs and symptoms of bleeding or bruising or clotting. Bleeding, bruising, clotting discussed Nutritional guidance given Dose: 11.25mg x2, 7.5mg x 5 F/U INR: pt req 4 weeks Patient verbalizes understanding of instructions given Anti-Coag Initial Assessment Social Hx Patient Tobacco Use Status: Current everyday Tobacco user alcohol intake: never Coding Level of Care Code Est Patient Level 1 Diagnoses Current use of anticoagulant therapy Z79.01 Results AMB INR Fingerstick AMB INR Fingerstick 2.1 Last Edit by Suzanne Chairez RN on 06/02/23 09:37 Assessment & Plan Assessment & Plan (1) Current use of anticoagulant therapy: Code(s): Z79.01 - alf (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 Category: Medical
[2023-06-02 09:37] LABS: Prothrombin Time Whole Bld POC 24.9 sec (11.1-13.5); ~PT, ~INR - Anti Coag Clinic 2.1 (0.9-1.1)
== END 2023-06-02 09:41 | disposition home or self-care (01) ==
LOC: HO.ACS 09:28
PROVIDERS: PCP Internal Medicine; Visit Provider Internal Medicine
DX: Z79.01 Long term (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 (principal)

== ENCOUNTER → 2023-06-02 09:28 | Outpatient (BNVA) | payer MEDICARE, MEDICAID, SELFPAY | PROVIDERS: PCP Internal Medicine; Visit Provider Internal Medicine | DX: I48.20 Chronic atrial fibrillation, unspecified (principal); Z79.01 Long term (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; Z51.81 Encounter for therapeutic drug level monitoring | CPT/HCPCS: 85610; 99211 ==

== ENCOUNTER → 2023-06-30 09:12 | Outpatient (BNVA) | payer MEDICARE, MEDICAID, SELFPAY | PROVIDERS: PCP Internal Medicine; Visit Provider Internal Medicine | DX: I48.20 Chronic atrial fibrillation, unspecified (principal); Z51.81 Encounter for therapeutic drug level monitoring; Z79.01 Long term (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 | CPT/HCPCS: 85610; 99211 ==

== ENCOUNTER 2023-07-28 09:08 | Outpatient (AMB) | payer MEDICARE, MEDICAID, SELFPAY ==
[2023-07-28 09:24] LABS: Prothrombin Time Whole Bld POC 34.5 sec (11.1-13.5); ~PT, ~INR - Anti Coag Clinic 2.9 (0.9-1.1)
--- NOTE | 2023-07-28 09:37 | MHC.OFFVISCO ---
Intake Intake Visit Reasons: Anticoagulation Allergies Seasonal Allergies Adverse Reaction (Mild, Verified 07/28/23 09:19) Nasal congestion Medication List - Last Reconciled 07/28/23 by Flakita Miner RN atorvastatin 40 mg PO DAILY cholecalciferol (vitamin D3) 25 mcg PO DAILY levothyroxine 88 mcg PO DAILY metoprolol tartrate 50 mg PO BID nitroglycerin 0.3 mg sublingual Q5M PRN omega-3 fatty acids (Fish Oil Concentrate) 1,000 mg PO DAILY warfarin 7.5 mg See Protocol PO DAILY Nursing Note TO HAVE COLONOSCOPY ON 08/26. PT.STATES THAT HE WAS INFORMED BY CARDIOLOGY TO HOLD WARFARIN FOR 5 DAYS PRIOR. NO LOVENOX IS ORDERED. IN MEANTIME PT.AGREES TO CONTINUE PRESENT DOSING AND FOLLOW-UP ON 08/31 AFTER THE PROCEDURE. PT. T6O RESUME WARFARIN DIRECTED BY . TO CALL [facility] IN MEANTIME IF ANY QUESTIONS/CONCERNS ARISE. PT.DENIES ANY CP,SOB,MED CHANGES OR SX OF BLEEDING. GOOD UNDERSTANDING OF INSTR.VERB. 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
== END 2023-07-28 09:40 | disposition home or self-care (01) ==
LOC: HO.ACS 09:08
PROVIDERS: PCP Internal Medicine; Visit Provider Internal Medicine
DX: Z79.01 Long term (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 (principal)

== ENCOUNTER → 2023-07-28 09:08 | Outpatient (BNVA) | payer MEDICARE, MEDICAID, SELFPAY | PROVIDERS: PCP Internal Medicine; Visit Provider Internal Medicine | DX: I48.20 Chronic atrial fibrillation, unspecified (principal); Z51.81 Encounter for therapeutic drug level monitoring; Z79.01 Long term (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 | CPT/HCPCS: 85610; 99211 ==

== ENCOUNTER 2023-08-27 06:34 | Day surgery (SDC) | payer MEDICARE, SELFPAY ==
[2023-08-25 14:46] VITALS: BMI 35.6
--- NOTE | 2023-08-26 09:30 | P.CONAN_ITS ---
Documented by User: Emilie Lenz NP 08/26/23 09:31 HPI - Anesthesia Eval Consult details Narrative: 72yo M for Colonoscopy Follows [facility] cardiology for CAD s/p [place] 2011, afib. Stable at 09/2022 for yearly routine f/u Warfarin for afib PMFSH Active Problems Active Problems: All Active Problems Current use of anticoagulant therapy (Acute) Essential hypertension (Acute) Hemorrhoids with complication (Acute) Other and unspecified hyperlipidemia (Acute) PAF (paroxysmal atrial fibrillation) (Acute) Atherosclerotic cardiovascular disease (Acute) Past Medical History Medical History Hodgkins disease Essential hypertension Hemorrhoids with complication Other and unspecified hyperlipidemia PAF (paroxysmal atrial fibrillation) Atherosclerotic cardiovascular disease Family History Family History Father Cancer Mother No problems noted. Surgical History Surgical History H/O colonoscopy History of cardiac catheterization (~12/2011) Social History Social History (Updated 09/29/22 @ 09:40 by Adelaida Krishna) Alcohol intake: never Patient Tobacco Use Status: Current everyday Tobacco user Cigarettes Per Day: 10 Use of substances other than those prescribed or required for medical reasons: No Are you DNR?: No Advance Directives: No Advance Directives Information Provided: Yes Meds Allergies Allergy/AdvReac Type Severity Reaction Status Date / Time Seasonal Allergies AdvReac Mild Nasal Verified 08/27/23 07:05 congestion Home Medications ?Medication ?Instructions ?Recorded ?Confirmed ?Last Taken ?Type atorvastatin 40 mg tablet 40 mg PO DAILY 05/02/20 08/27/23 08/26/23 History cholecalciferol (vitamin D3) 25 25 mcg PO DAILY 05/02/20 08/27/23 08/26/23 History mcg (1,000 unit) capsule levothyroxine 88 mcg tablet 88 mcg PO DAILY 05/02/20 08/27/23 08/26/23 History metoprolol tartrate 50 mg tablet 50 mg PO BID 05/02/20 08/27/23 08/27/23 History nitroglycerin 0.3 mg sublingual 0.3 mg sublingual Q5M PRN Chest 05/02/20 08/25/23 Unknown History tablet Pain omega-3 fatty acids 1,000 mg 1,000 mg PO DAILY 05/02/20 08/27/23 08/21/23 History capsule (Fish Oil Concentrate) Exam Height,Weight and Vital Signs: Height 5 ft 10 in Weight 112.491 kg Assessment and Plan Assessment Anesthesia Assessment: Chart Reviewed Documented by User: Jony Calles MD 08/27/23 07:46 PMFSH Past Medical History Medical History Hodgkins disease Essential hypertension Hemorrhoids with complication Other and unspecified hyperlipidemia PAF (paroxysmal atrial fibrillation) Atherosclerotic cardiovascular disease Family History Family History Father Cancer Mother No problems noted. Family history of problems with anesthesia: No Surgical History Surgical History H/O colonoscopy History of cardiac catheterization (~12/2011) History of Problems with Anesthesia: No Social History Social History (Updated 09/29/22 @ 09:40 by Adelaida Krishna) Alcohol intake: never Patient Tobacco Use Status: Current everyday Tobacco user Cigarettes Per Day: 10 Use of substances other than those prescribed or required for medical reasons: No Are you DNR?: No Advance Directives: No Advance Directives Information Provided: Yes Meds Allergies Allergy/AdvReac Type Severity Reaction Status Date / Time Seasonal Allergies AdvReac Mild Nasal Verified 08/27/23 07:05 congestion Home Medications ?Medication ?Instructions ?Recorded ?Confirmed ?Last Taken ?Type atorvastatin 40 mg tablet 40 mg PO DAILY 05/02/20 08/27/23 08/26/23 History cholecalciferol (vitamin D3) 25 25 mcg PO DAILY 05/02/20 08/27/23 08/26/23 History mcg (1,000 unit) capsule levothyroxine 88 mcg tablet 88 mcg PO DAILY 05/02/20 08/27/23 08/26/23 History metoprolol tartrate 50 mg tablet 50 mg PO BID 05/02/20 08/27/23 08/27/23 History nitroglycerin 0.3 mg sublingual 0.3 mg sublingual Q5M PRN Chest 05/02/20 08/25/23 Unknown History tablet Pain omega-3 fatty acids 1,000 mg 1,000 mg PO DAILY 05/02/20 08/27/23 08/21/23 History capsule (Fish Oil Concentrate) Exam Airway Mallampati Class: III TM Dist: <=3cm Neck ROM: Full Loose/Missing/Broken Teeth: No Heart: rrr Lungs: cts Assessment and Plan Assessment Anesthesia Assessment: Anesthesia Plan Discussed Final Anesthetic Review Family History of Problems with Anesthesia: No History of Problems with Anesthesia: No NPO: Yes ASA Class: III Final Preanesthetic Review: No Changes in Pt Med Stat, Meds/Allgs Chart Reviewed, Consent Obtained/Reviewed and Anes Risks/Benef Reviewed Patient Risk: Intermediate Procedure Risk: Intermediate Anesthetic Plan Anesthetic Plan: TIVA Disposition: Standard PACU
[2023-08-27 06:40] VITALS: BMI 34.4
[2023-08-27 07:01] VITALS: BP 187/101; PULSE 67; RESP 16; TEMP 36.4; O2SAT 95
[2023-08-27] MEDS: Lactated Ringers 1,000 ML 100 ML IVCONT (07:03)
[2023-08-27 07:14] VITALS: BP 181/92
[2023-08-27 07:25] LABS: Prothrombin Time 12.4 SEC (11.1-13.3)
--- NOTE | 2023-08-27 08:32 | MHC.SHP ---
Pre-Procedural Eval Section A - 24 Hr Update-Section A only Date of Service: 08/27/23 Section B - Complete if H&P > 30 days Chief Complaint: Encounter for screening for malignant neoplasm of Details of Present Illness: see H&P no changes Relevant Family History (Specify if Yes): No Present Medications: see Short Stay Collaborative assessment Medical History: No relevant PMH Allergies: Allergies Allergy/AdvReac Type Severity Reaction Status Date / Time Seasonal Allergies AdvReac Mild Nasal Verified 08/27/23 07:05 congestion Review of Systems Sugical H&P ROS: Negative: Constitution, Cardiovascular, Respiratory, Neurological, Psychiatric, Hem-Onc, Allergic/Immunologic, Gastrointestinal, Genitourinary, Musculoskeletal, Integumentary, Endocrine and Eyes/Ears/Nose/Throat Exam Surgical H&P Exam: Normal: HEENT, Normal: Heart, Normal: Lungs, Normal: Extremities, Normal: Abdomen, Normal: Skin and Normal: Neurological Plan Diagnosis/Plan: Unchanged I have reviewed the history and physical and performed a pertinent physical examination on my patient. No changes have occurred unless specified. Time Spent With Patient Time: Total time managing care of this patient today ____ minutes.
[2023-08-27 09:16] VITALS: BP 86/48; PULSE 54; RESP 16; TEMP 36.1; O2SAT 94
[2023-08-27 09:31] VITALS: BP 117/68; PULSE 57; RESP 16; O2SAT 95
--- NOTE | 2023-08-27 09:33 | OP_ITS ---
DATE OF SERVICE: 08/27/2023 SURGEON: Shabbir Do MD INDICATIONS: Colon cancer screening. PREOPERATIVE DIAGNOSIS: POSTOPERATIVE DIAGNOSIS: PROCEDURE PERFORMED: Colonoscopy to the terminal ileum with biopsy. ESTIMATED BLOOD LOSS: COMPLICATIONS: ANESTHESIA: Monitored anesthesia care. ASSISTANTS: SPECIMENS: DESCRIPTION OF PROCEDURE: A history and physical was performed. The risks and benefits of the procedure were explained to the patient and informed consent was obtained. The patient was placed in the left lateral decubitus position. A digital rectal exam was performed and was found to be normal. The Olympus pediatric video colonoscope was introduced into the rectum and advanced to the cecum. The cecum was identified by transillumination, palpation, and identification of ileocecal valve. Examination was performed and the scope was removed. He tolerated the procedure well and was returned to the recovery area in stable condition. FINDINGS: The terminal ileum was examined and appeared normal. The visualized colonic mucosa was normal. The quality of the prep was good. There was a single polyp measuring less than 5 mm located in the right colon. This was removed with a biopsy forceps. No other polyps were identified. Retroflexed examination was normal. The quality of the prep was good. IMPRESSION: Colon polyp. RECOMMENDATION: Follow up the biopsy results. MD FABRICIO Landeros/MODL / [id number]
[2023-08-27 09:46] VITALS: BP 123/69; PULSE 57; RESP 16; TEMP 36.1; O2SAT 94
== END 2023-08-27 10:15 | disposition home or self-care (01) ==
PROVIDERS: Nurse Practitioner; PCP Internal Medicine; Visit Provider Internal Medicine Gastroenterology
PROC: 0DJD8ZZ Inspection of Lower Intestinal Tract, Via Natural or Artificial Opening Endoscopic (ICD-10-PCS; CPT 45378; principal; 2023-08-27 08:30)
DX: Z12.11 Encounter for screening for malignant neoplasm of colon (principal); D12.2 Benign neoplasm of ascending colon; I48.0 Paroxysmal atrial fibrillation; I25.2 Old myocardial infarction; Z79.01 Long term (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; Z79.899 Other long term (current) drug therapy
CPT/HCPCS: 45380; 36415; 85610; 88305; J2704

== ENCOUNTER 2023-09-01 09:10 | Outpatient (AMB) | payer MEDICARE, SELFPAY ==
--- NOTE | 2023-09-01 09:21 | MHC.OFFVISCO ---
Intake Intake Visit Reasons: Anticoagulation Allergies Seasonal Allergies Adverse Reaction (Mild, Verified 09/01/23 09:17) Nasal congestion Medication List - Last Reconciled 09/01/23 by Suzanne Chairez RN atorvastatin 40 mg PO DAILY cholecalciferol (vitamin D3) 25 mcg PO DAILY levothyroxine 88 mcg PO DAILY metoprolol tartrate 50 mg PO BID nitroglycerin 0.3 mg sublingual Q5M PRN omega-3 fatty acids (Fish Oil Concentrate) 1,000 mg PO DAILY warfarin 7.5 mg See Protocol PO DAILY Nursing Note INR 1.2-? out of therapeutic range of 2-3 Medications and supplements reviewed Patient status: pt s/p colonoscopy on 08/27/23 with 5 day hold of warfarin and no lovenox per proc notes - one polyp Medications or supplements: no changes Diet: same Denies any signs and symptoms of bleeding or clotting or unusual bruising Bleeding, bruising, clotting discussed Nutritional guidance given: avoid greens Dose: 15mg today then cont reg dosing, 11.25mg x 2, 7.5mg x 5 F/U INR Date : ? unable to return until 09/07/23 pt states procedure scheduled on wed09/06/23 to left ear for lesion removal, he states no hold on warfarin Patient verbalizing understanding of instructions given. t/c to pcp dr titus to report low inr/dosing and f/u appt, spoke to nisa at 0937, aware of colonoscopy with 5 day hold and proc sched for wednesday Anti-Coag Initial Assessment Social Hx Patient Tobacco Use Status: Current everyday Tobacco user alcohol intake: never Coding Level of Care Code Est Patient Level 1 Diagnoses Current use of anticoagulant therapy Z79.01 Assessment & Plan Assessment & Plan (1) Current use of anticoagulant therapy: Code(s): Z79.01 - MCFP (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 Category: Medical
[2023-09-01 09:22] LABS: Prothrombin Time Whole Bld POC 14.8 sec (11.1-13.5); ~PT, ~INR - Anti Coag Clinic 1.2 (0.9-1.1)
== END 2023-09-01 09:39 | disposition home or self-care (01) ==
LOC: HO.ACS 09:10
PROVIDERS: PCP Internal Medicine; Visit Provider Internal Medicine
DX: Z79.01 Long term (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 (principal)

== ENCOUNTER → 2023-09-01 09:10 | Outpatient (BNVA) | payer MEDICARE, SELFPAY | PROVIDERS: PCP Internal Medicine; Visit Provider Internal Medicine | DX: I48.20 Chronic atrial fibrillation, unspecified (principal); Z79.01 Long term (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; Z51.81 Encounter for therapeutic drug level monitoring | CPT/HCPCS: 85610; 99211 ==

== ENCOUNTER → 2023-09-02 09:58 | Outpatient (BNVA) | payer MEDICARE, SELFPAY | PROVIDERS: PCP Internal Medicine; Visit Provider Internal Medicine ==

== ENCOUNTER 2023-09-10 09:20 | Outpatient (AMB) | payer MEDICARE, SELFPAY ==
--- NOTE | 2023-09-10 09:43 | MHC.OFFVISCO ---
Intake Intake Visit Reasons: Anticoagulation Allergies Seasonal Allergies Adverse Reaction (Mild, Verified 09/10/23 09:39) Nasal congestion Medication List - Last Reconciled 09/10/23 by Suzanne Chairez RN atorvastatin 40 mg PO DAILY cholecalciferol (vitamin D3) 25 mcg PO DAILY levothyroxine 88 mcg PO DAILY metoprolol tartrate 50 mg PO BID nitroglycerin 0.3 mg sublingual Q5M PRN omega-3 fatty acids (Fish Oil Concentrate) 1,000 mg PO DAILY warfarin 7.5 mg See Protocol PO DAILY Nursing Note INR 1.7- out of therapeutic range of 2-3 Medications and supplements reviewed Patient status: pt s/p colonoscopy on 08/27/23, s/p moh's proc- 3 day hold of warfarin, pt states pcp put him on lovenox post colonoscopy but not taking lovenox at present. saw pcp yesterday, band aid to left ear, graft site Medications or supplements: no changes , taking occ tylenol prn Diet: good Denies any signs and symptoms of bleeding or clotting or unusual bruising Bleeding, bruising, clotting discussed Nutritional guidance given: no greens for 2 days, eat a red today Dose: [] F/U INR Date : []?? Patient verbalizing understanding of instructions given. 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
[2023-09-10 09:52] LABS: Prothrombin Time Whole Bld POC 20.6 sec (11.1-13.5); ~PT, ~INR - Anti Coag Clinic 1.7 (0.9-1.1)
== END 2023-09-10 10:05 | disposition home or self-care (01) ==
LOC: HO.ACS 09:20
PROVIDERS: PCP Internal Medicine; Visit Provider Internal Medicine
DX: Z79.01 Long term (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 (principal)

== ENCOUNTER → 2023-09-10 09:20 | Outpatient (BNVA) | payer MEDICARE, SELFPAY | PROVIDERS: PCP Internal Medicine; Visit Provider Internal Medicine | DX: I48.20 Chronic atrial fibrillation, unspecified (principal); Z79.01 Long term (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; Z51.81 Encounter for therapeutic drug level monitoring | CPT/HCPCS: 85610; 99211 ==

== ENCOUNTER 2023-09-17 09:02 | Outpatient (AMB) | payer MEDICARE, SELFPAY ==
[2023-09-17 09:15] LABS: Prothrombin Time Whole Bld POC 27.8 sec (11.1-13.5); ~PT, ~INR - Anti Coag Clinic 2.3 (0.9-1.1)
--- NOTE | 2023-09-17 09:22 | MHC.OFFVISCO ---
Intake Intake Visit Reasons: Anticoagulation Allergies Seasonal Allergies Adverse Reaction (Mild, Verified 09/17/23 09:08) Nasal congestion Medication List - Last Reconciled 09/17/23 by Kate Dunlap RN atorvastatin 40 mg PO DAILY cholecalciferol (vitamin D3) 25 mcg PO DAILY enoxaparin mg subcut levothyroxine 88 mcg PO DAILY metoprolol tartrate 50 mg PO BID nitroglycerin 0.3 mg sublingual Q5M PRN omega-3 fatty acids (Fish Oil Concentrate) 1,000 mg PO DAILY warfarin 7.5 mg See Protocol PO DAILY Nursing Note INR 2.3 therapeutic range Medications and supplements reviewed Patient status: healing ear from Mohs procedure on left ear Medications or supplements: no changes Diet: good Denies any signs and symptoms of bleeding or clotting or unusual bruising Bleeding, bruising, clotting discussed Nutritional guidance given: wait a few days to have greens then resume usual diet Dose: resume usual dose 11.25mg x 2 days/ 7.5mg x 5 days F/U INR Date : resume monthly?? Patient verbalizing understanding of instructions given. Anti-Coag Initial Assessment Social Hx Patient Tobacco Use Status: Current everyday Tobacco user alcohol intake: never Coding Level of Care Code Est Patient Level 1 Diagnoses Current use of anticoagulant therapy Z79.01 Assessment & Plan Assessment & Plan (1) Current use of anticoagulant therapy: Code(s): Z79.01 - correction (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 Category: Medical
== END 2023-09-17 09:25 | disposition home or self-care (01) ==
LOC: HO.ACS 09:02
PROVIDERS: PCP Internal Medicine; Visit Provider Internal Medicine
DX: Z79.01 Long term (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 (principal)

== ENCOUNTER → 2023-09-17 09:02 | Outpatient (BNVA) | payer MEDICARE, SELFPAY | PROVIDERS: PCP Internal Medicine; Visit Provider Internal Medicine | DX: I48.20 Chronic atrial fibrillation, unspecified (principal); Z79.01 Long term (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; Z51.81 Encounter for therapeutic drug level monitoring | CPT/HCPCS: 85610; 99211 ==

== ENCOUNTER 2023-09-30 09:32 | Outpatient (AMB) | payer MEDICARE, MEDICAID, SELFPAY ==
--- NOTE | 2023-09-30 09:49 | MHC.OFFVIS ---
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 He states he is doing very well. No complaints like angina or shortness of breath or in fact anything cardiac sounding. He is getting around with no limitations whatsoever. Reasonably active. [facility] Medical History Hodgkins disease Essential hypertension Hemorrhoids with complication Other and unspecified hyperlipidemia PAF (paroxysmal atrial fibrillation) Atherosclerotic cardiovascular disease Surgical History H/O colonoscopy History of cardiac catheterization (~12/2011) Family History Father Cancer Mother No problems noted. Social History Alcohol intake: never Patient Tobacco Use Status: Current everyday Tobacco user Cigarettes Per Day: 10 Review of Systems Const Denies chills, Denies fatigue, Denies fever(s), Denies weight gain and Denies weight loss ENT Denies dizziness Card Denies chest pain, Denies leg edema, Denies lightheadedness, Denies palpitations, Denies dyspnea on exertion, Denies orthopnea and Denies other Resp Denies cough and Denies dyspnea on exertion GI Denies hematochezia and Denies change in stool character Musc Denies abnormal gait, Denies muscle weakness, Denies numbness, Denies radiating pain into limb and Denies tingling Neuro Denies abnormal gait, Denies dizziness, Denies numbness and Denies tingling Endo Denies fatigue and Denies palpitations Physical Exam Vital Signs: Last Vital Signs Pulse 60 09/30/23 10:00 BP 110/70 09/30/23 10:00 BMI result Body Mass Index 34.9 Const General: comfortable and no acute distress Orientation/consciousness: patient oriented x3 HEENT Other: Unremarkable Head: Yes normal to inspection Neck Neck: Yes normal visual inspection Chest Chest palpation & inspection: normal inspection of the chest Resp Auscultation: clear to auscultation bilaterally Cardio Palpation: normal PMI Heart sounds: S1 normal heart sound present, S2 normal heart sound present, no gallops, no murmurs and no rubs GI Palpation (GI): Soft to palpation Back/Spine/Pelvis Other: unremarkable Skin General skin exam: no rashes or lesions noted Neuro General: patient oriented x3 Extrem General: Yes normal to inspection Psych Mental Status: mental status grossly normal Office Procedures EKG Details: EKG with sinus rhythm at 61/Min; right bundle-branch block pattern can not exclude old inferior infarct. Normal CT and corrected QT. Similar to prior. [id number], Complete Assessment & Plan Assessment & Plan (1) Atherosclerotic cardiovascular disease: Code(s): I25.10 - Atherosclerotic heart disease of [place] coronary artery without angina pectoris Category: Medical Plan: Previous cardiac studies reviewed. [id number] 60-65%, mild mitral regurgitation. Myocardial perfusion imaging [id number] perfusion defect with reversible and fixed components basal inferior wall. Cardiac [id number] RCA 100% stenosis status post bare metal stent; no significant disease in the left system. Clinically, no symptoms whatsoever. Continue medications. (2) PAF (paroxysmal atrial fibrillation): Comment: follows w/HCS-taking warfarin Code(s): I48.0 - Paroxysmal atrial fibrillation Category: Medical Plan: No recent issues. Continue beta-blockers. Continue anticoagulation. (3) Essential hypertension: Code(s): I10 - Essential (primary) hypertension Category: Medical Plan: Stable. (4) Other and unspecified hyperlipidemia: Code(s): E78.5 - Hyperlipidemia, unspecified Category: Medical Plan: On statins. Last available LDL 49 mg/dL. Coding Level of Care Code Est Pt Level 4 (79214) Diagnoses Atherosclerotic cardiovascular disease I25.10 PAF (paroxysmal atrial fibrillation) I48.0 Essential hypertension I10 Other and unspecified hyperlipidemia E78.5 CPT Codes EKG - CPT: 17846-Nogncgnrurfkyzwvb, Complete ([id number])
[2023-09-30 10:00] VITALS: BP 110/70; PULSE 60; BMI 34.9
== END 2023-09-30 10:30 | disposition home or self-care (01) ==
PROVIDERS: PCP Internal Medicine; Visit Provider Internal Medicine
DX: I25.10 Atherosclerotic heart disease of native coronary artery without angina pectoris (principal); I48.0 Paroxysmal atrial fibrillation; I10 Essential (primary) hypertension; E78.5 Hyperlipidemia, unspecified
CPT/HCPCS: 93010; 99214

== ENCOUNTER → 2023-09-30 09:32 | Outpatient (BNVA) | payer MEDICARE, SELFPAY | PROVIDERS: PCP Internal Medicine; Visit Provider Internal Medicine | DX: I25.10 Atherosclerotic heart disease of native coronary artery without angina pectoris (principal); I48.0 Paroxysmal atrial fibrillation; I10 Essential (primary) hypertension; E78.5 Hyperlipidemia, unspecified; R94.31 Abnormal electrocardiogram [ECG] [EKG]; I45.10 Unspecified right bundle-branch block | CPT/HCPCS: 93005; 99212 ==

== ENCOUNTER 2023-10-15 10:23 | Outpatient (AMB) | payer MEDICARE, SELFPAY ==
[2023-10-15 10:38] LABS: Prothrombin Time Whole Bld POC 40.9 sec (11.1-13.5); ~PT, ~INR - Anti Coag Clinic 3.4 (0.9-1.1)
--- NOTE | 2023-10-15 10:43 | MHC.OFFVISCO ---
Intake Intake Visit Reasons: Anticoagulation Allergies Seasonal Allergies Adverse Reaction (Mild, Verified 10/15/23 10:32) Nasal congestion Medication List - Last Reconciled 10/15/23 by Shirley Wang RN atorvastatin 40 mg PO DAILY cholecalciferol (vitamin D3) 25 mcg PO DAILY levothyroxine 88 mcg PO DAILY metoprolol tartrate 50 mg PO BID nitroglycerin 0.3 mg sublingual Q5M PRN omega-3 fatty acids (Fish Oil Concentrate) 1,000 mg PO DAILY warfarin 7.5 mg See Protocol PO DAILY Nursing Note INR 3.4?out of therapeutic range Medications and supplements reviewed Patient status: well Medications or supplements: no changes Diet: usual diet for pt Denies any signs and symptoms of bleeding or clotting or unusual bruising Bleeding, bruising, clotting discussed Nutritional guidance given: to have a serving of greens today and tomorrow Dose: continue usual dose of 7.5mg X 5 days and 11.25mg X 2 days F/U INR Date : 3 weeks?? Patient verbalizing understanding of instructions given. 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
== END 2023-10-15 10:50 | disposition home or self-care (01) ==
LOC: HO.ACS 10:23
PROVIDERS: PCP Internal Medicine; Visit Provider Internal Medicine
DX: Z79.01 Long term (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 (principal)

== ENCOUNTER → 2023-10-15 10:23 | Outpatient (BNVA) | payer MEDICARE, SELFPAY | PROVIDERS: PCP Internal Medicine; Visit Provider Internal Medicine | DX: I48.20 Chronic atrial fibrillation, unspecified (principal); Z79.01 Long term (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; Z51.81 Encounter for therapeutic drug level monitoring | CPT/HCPCS: 85610; 99211 ==

== ENCOUNTER 2023-11-08 09:21 | Outpatient (AMB) | payer MEDICARE, SELFPAY ==
--- NOTE | 2023-11-08 09:35 | MHC.OFFVISCO ---
Intake Intake Visit Reasons: Anticoagulation Allergies Seasonal Allergies Adverse Reaction (Mild, Verified 11/08/23 09:30) Nasal congestion Medication List - Last Reconciled 11/08/23 by Suzanne Chairez RN atorvastatin 40 mg PO DAILY cholecalciferol (vitamin D3) 25 mcg PO DAILY levothyroxine 88 mcg PO DAILY metoprolol tartrate 50 mg PO BID nitroglycerin 0.3 mg sublingual Q5M PRN omega-3 fatty acids (Fish Oil Concentrate) 1,000 mg PO DAILY warfarin 7.5 mg See Protocol PO DAILY Nursing Note INR: 2.0- in therapeutic range of 2-3 Medications and supplements reviewed No changes in health, diet, medications, or supplements, Denies any signs and symptoms of bleeding or bruising or clotting. 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
== END 2023-11-08 09:44 | disposition home or self-care (01) ==
LOC: HO.ACS 09:21
PROVIDERS: PCP Internal Medicine; Visit Provider Internal Medicine
DX: Z79.01 Long term (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 (principal)

== ENCOUNTER → 2023-11-08 09:21 | Outpatient (BNVA) | payer MEDICARE, SELFPAY | PROVIDERS: PCP Internal Medicine; Visit Provider Internal Medicine | DX: I48.20 Chronic atrial fibrillation, unspecified (principal); Z79.01 Long term (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; Z51.81 Encounter for therapeutic drug level monitoring | CPT/HCPCS: 85610; 99211 ==

== ENCOUNTER 2023-12-06 09:55 | Outpatient (AMB) | payer MEDICARE, SELFPAY ==
--- NOTE | 2023-12-06 10:04 | MHC.OFFVISCO ---
Intake Intake Visit Reasons: Anticoagulation Allergies Seasonal Allergies Adverse Reaction (Mild, Verified 12/06/23 09:58) Nasal congestion Medication List - Last Reconciled 12/06/23 by Suzanne Chairez RN atorvastatin 40 mg PO DAILY cholecalciferol (vitamin D3) 25 mcg PO DAILY levothyroxine 88 mcg PO DAILY metoprolol tartrate 50 mg PO BID nitroglycerin 0.3 mg sublingual Q5M PRN omega-3 fatty acids (Fish Oil Concentrate) 1,000 mg PO DAILY warfarin 7.5 mg See Protocol PO DAILY Nursing Note INR: 2.2- in therapeutic range 2-3 Medications and supplements reviewed- no changes, had flu shot last week No changes in health, diet, medications, or supplements, Denies any signs and symptoms of bleeding or bruising or clotting. Bleeding, bruising, clotting discussed Nutritional guidance given Dose: 7.5mg x 5, 11.25mg x 2 F/U INR: 4 weeks Patient verbalizes understanding of instructions given Anti-Coag Initial Assessment Social Hx Patient Tobacco Use Status: Current everyday Tobacco user alcohol intake: never Coding Level of Care Code Est Patient Level 1 Diagnoses Current use of anticoagulant therapy Z79.01 Assessment & Plan Assessment & Plan (1) Current use of anticoagulant therapy: Code(s): Z79.01 - assisted (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 Category: Medical
[2023-12-06 10:05] LABS: Prothrombin Time Whole Bld POC 26.4 sec (11.1-13.5); ~PT, ~INR - Anti Coag Clinic 2.2 (0.9-1.1)
== END 2023-12-06 10:11 | disposition home or self-care (01) ==
LOC: HO.ACS 09:55
PROVIDERS: PCP Internal Medicine; Visit Provider Internal Medicine
DX: Z79.01 Long term (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 (principal)

== ENCOUNTER → 2023-12-06 09:55 | Outpatient (BNVA) | payer MEDICARE, SELFPAY | PROVIDERS: PCP Internal Medicine; Visit Provider Internal Medicine | DX: I48.20 Chronic atrial fibrillation, unspecified (principal); Z79.01 Long term (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; Z51.81 Encounter for therapeutic drug level monitoring | CPT/HCPCS: 85610; 99211 ==

== ENCOUNTER 2024-01-11 10:06 | Outpatient (AMB) | payer MEDICARE, SELFPAY ==
--- NOTE | 2024-01-11 10:18 | MHC.OFFVISCO ---
Intake Intake Visit Reasons: Anticoagulation Allergies Seasonal Allergies Adverse Reaction (Mild, Verified 01/11/24 10:14) Nasal congestion Medication List - Last Reconciled 01/11/24 by Suzanne Chairez RN atorvastatin 40 mg PO DAILY cholecalciferol (vitamin D3) 25 mcg PO DAILY levothyroxine 88 mcg PO DAILY metoprolol tartrate 50 mg PO BID nitroglycerin 0.3 mg sublingual Q5M PRN omega-3 fatty acids (Fish Oil Concentrate) 1,000 mg PO DAILY warfarin 7.5 mg See Protocol PO DAILY Nursing Note INR: 2.7- in therapeutic range of 2-3 Medications and supplements reviewed- no changes No changes in health, diet, medications, or supplements, Denies any signs and symptoms of bleeding or bruising or clotting. Bleeding, bruising, clotting discussed Nutritional guidance given Dose: 11.25mg x 2, 7.5mg x 5 F/U INR: 4 weeks Patient verbalizes understanding of instructions given pt c.o soreness/muscles due to activity- helping neighbor put up halloween decorations. 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
[2024-01-11 10:19] LABS: Prothrombin Time Whole Bld POC 32.9 sec (11.1-13.5); ~PT, ~INR - Anti Coag Clinic 2.7 (0.9-1.1)
== END 2024-01-11 10:24 | disposition home or self-care (01) ==
LOC: HO.ACS 10:06
PROVIDERS: PCP Internal Medicine; Visit Provider Internal Medicine
DX: Z79.01 Long term (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 (principal)

== ENCOUNTER → 2024-01-11 10:06 | Outpatient (BNVA) | payer MEDICARE, SELFPAY | PROVIDERS: PCP Internal Medicine; Visit Provider Internal Medicine | DX: I48.20 Chronic atrial fibrillation, unspecified (principal); Z79.01 Long term (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; Z51.81 Encounter for therapeutic drug level monitoring | CPT/HCPCS: 85610; 99211 ==

== ENCOUNTER 2024-02-11 09:13 | Outpatient (AMB) | payer MEDICARE, SELFPAY ==
[2024-02-11 09:19] LABS: Prothrombin Time Whole Bld POC 44.4 sec (11.1-13.5); ~PT, ~INR - Anti Coag Clinic 3.7 (0.9-1.1)
--- NOTE | 2024-02-11 09:21 | MHC.OFFVISCO ---
Intake Intake Visit Reasons: Anticoagulation Allergies Seasonal Allergies Adverse Reaction (Mild, Verified 02/11/24 09:14) Nasal congestion Medication List - Last Reconciled 02/11/24 by Flakita Miner RN atorvastatin 40 mg PO DAILY cholecalciferol (vitamin D3) 25 mcg PO DAILY levothyroxine 88 mcg PO DAILY metoprolol tartrate 50 mg PO BID nitroglycerin 0.3 mg sublingual Q5M PRN omega-3 fatty acids (Fish Oil Concentrate) 1,000 mg PO DAILY warfarin 7.5 mg See Protocol PO DAILY Nursing Note NO CP,SOB,DIET/MED CHANGES,FALLS OR SX OF BLEEDNG. DECREASE DOSE TODAY THEN RESUME USUAL DOSING AND FOLLOW-UP IN 4 WEEKS. 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 Anti-Coag Initial Assessment Social Hx Patient Tobacco Use Status: Current everyday Tobacco user alcohol intake: never Coding Level of Care Code Est Patient Level 1 Diagnoses Current use of anticoagulant therapy Z79.01 Assessment & Plan Assessment & Plan (1) Current use of anticoagulant therapy: Code(s): Z79.01 - half-way (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 Category: Medical
== END 2024-02-11 09:28 | disposition home or self-care (01) ==
LOC: HO.ACS 09:13
PROVIDERS: PCP Internal Medicine; Visit Provider Internal Medicine
DX: Z79.01 Long term (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 (principal)

== ENCOUNTER → 2024-02-11 09:13 | Outpatient (BNVA) | payer MEDICARE, SELFPAY | PROVIDERS: PCP Internal Medicine; Visit Provider Internal Medicine | DX: I48.20 Chronic atrial fibrillation, unspecified (principal); Z79.01 Long term (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; Z51.81 Encounter for therapeutic drug level monitoring | CPT/HCPCS: 85610; 99211 ==

== ENCOUNTER 2024-03-10 09:20 | Outpatient (AMB) | payer MEDICARE, SELFPAY ==
--- OUTSIDE RECORDS SUMMARY | 2024-03-10 09:22 | XMS_ITS ---
Author Organization [facility] Address [address] [place] [address] Care Team Providers Care Senior Sql Database Developer Name Role Phone Onofre Sandy MD Primary Care Provider UnavailShabbir Ackerman Jr [phone] REASON FOR VISIT screening colon Encounters Encounter Location Date Provider Diagnosis [facility] Outpatient [address] [place] [phone] 08/27/2023 Shabbir Do Jr Encounter for screening colonoscopy Z12.11 and Colon polyps K63.5 ASSESSMENTS Encounter Date Diagnosis Assessment Notes Treatment Notes Treatment Clinical Notes 08/27/2023 Encounter for screening colonoscopy (ICD-10 - Z12.11) 08/27/2023 Colon polyps (ICD-10 - K63.5) PLAN OF TREATMENT No Information
--- OUTSIDE RECORDS SUMMARY | 2024-03-10 09:22 | XMS_ITS | Patient Health Record ---
Author Organization [facility] Address [address] [place] [address] Care Team Providers Care Housekeeping Supervisor Name Role Phone Onofre Sandy MD Primary Care Provider Shabbir Murray Jr Unavailable [phone] ALLERGIES No Known Allergies RESULTS Component Value Reference Range Notes Prothrombin Time INR Reviewed date:08/27/2023 03:04:07 PM Interpretation: Performing Lab:[facility], [address] [place] [id number] Notes/Report: Prothrombin Time 12.4 11.1-13.3 SEC INTERNATIONAL NORM RATIO 1.0 0.9-1.1 INTERNATIONAL NORMALIZED RATIO (INR) REFERENCE RANGES Reference Range For patients not on anticoagulant therapy: 0.9 - 1.1 INR ranges for oral anticoagulant therapy: For prevention and treatment of venous thrombosis and pulmonary embolism: 2.0 - 3.0 For acute myocardial infarction with aspirin therapy: 2.0 - 3.0 For acute myocardial infarction without aspirin therapy: 3.0 - 4.0 For patients with mechanical prosthetic heart valves: 2.5 - 3.5 Pathology Reviewed date:09/01/2023 07:48:26 AM Interpretation: Performing Lab:[address] [id number] Notes/Report: REASON FOR REFERRAL No Information MEDICATIONS Medication SIG (Take, Route, Frequency, Duration) Notes Start Date End Date Status Levothyroxine Sodium 88 MCG Oral for 90 Active Atorvastatin Calcium 40 MG Oral for 90 Active Metoprolol Tartrate 50 MG TAKE 1 TABLET BY MOUTH TWICE A DAY Oral for 90 Active Warfarin Sodium 7.5 MG TAKE 1 TABLET BY MOUTH EVERY DAY DIRECTED Oral for 90 Active Vitamin D (Cholecalciferol) 25 MCG (1000 UT) 1 capsule Orally Once a day for 30 day(s) 06/28/2023 Active Fish Oil + D3 2460-2054 MG-UNIT 1 capsule Orally Three times a day for 30 day(s) 06/28/2023 Active IMMUNIZATIONS Vaccine Route Administration Date Status Comme nts Influenza Unknown 02/09/2023 Administered SOCIAL HISTORY Tobacco Use: Social History Observation Description Date Details (start date - stop date) Current Smoker NA - NA Sex Assigned At : Social History Observation Description Sex Assigned At Unknown Tobacco Use/Smoking Question Answer Notes Patient is a current smoker Alcohol Screen Question Answer Notes Did you have a drink containing alcohol in the p ast year? No Points 0 Interpretation Negative PROBLEMS Problem Type ICD Code Onset Dates Problem Status W/U Status Risk SNOMED Code Notes Problem Colon cancer screening (Z12.11) Active confirmed 791243761 Problem Encounter for other preprocedural examination (Z01.818) Active confirmed 846582669 VITAL SIGNS Temperature 96.0 degrees Fahrenheit 06/28/2023 Blood pressure diastolic 00 mm Hg 06/28/2023 Height 5 ft 10 in in 06/28/2023 Blood pressure systolic 000 mm Hg 06/28/2023 Weight 248 lbs 06/28/2023 BMI 35.58 kg/m2 06/28/2023 Encounters Encounter Location Date Provider Diagnosis [facility] Outpatient [address] [place] [id number] 08/27/2023 Shabbir Do Jr Encounter for screening colonoscopy Z12.11 and Colon polyps K63.5 [facility] [address] [place] [phone] 04/08/2023 Shabbir Do Jr [facility] [address] [place] [phone] 06/28/2023 Shabbir Do Jr Colon cancer screening Z12.11 and Encounter for other preprocedural examination Z01.818 [facility] [address] [place] [phone] 04/06/2023 Shabbir Do Jr [facility] [address] [place] [phone] 06/28/2023 Shabbir Do Jr [facility] [address] [place] [address], [place] [address] 09/01/2023 Shabbir Do Jr ASSESSMENTS Encounter Date Diagnosis Assessment Notes Treatment Notes Treatment Clinical Notes 08/27/2023 Encounter for screening colonoscopy (ICD-10 - Z12.11) 08/27/2023 Colon polyps (ICD-10 - K63.5) 06/28/2023 Colon cancer screening (ICD-10 - Z12.11) Colonoscopy material was printed 06/28/2023 Encounter for other preprocedural examination (ICD-10 - Z01.818) PLAN OF TREATMENT Future Test Test Name Order Date COLONOSCOPY 06/28/2023 Insurance Providers Payer Name Payer Address Payer Phone Subscriber Number Group Number Insured Name Patient Relationship to Insured Coverage Start Date Coverage End Date MEDICARE OF [place] [address] MEGGAN SIMS [id number] [place] Self - patient is the insured MEDICAL (GENERAL) HISTORY Medical History History ICD Code Coronary artery disease, history of CT 2 012 Hodgkin's disease 1996 Paroxysmal atrial fibrillation Hypothyroidism Surgical History Surgery Date(Month/Year)
--- OUTSIDE RECORDS SUMMARY | 2024-03-10 09:22 | XMS_ITS ---
Author Organization [facility] Address [address] [place] [phone] Care Team Providers Care Respooler Name Role Phone Onofre Sandy MD Primary Care Provider Shabbir Murray Jr [phone] REASON FOR VISIT warfarin Encounters Encounter Location Date Provider Diagnosis [facility] [address] [place] [phone] 06/28/2023 Shabbir Do Jr PLAN OF TREATMENT No Information
[2024-03-10 09:26] LABS: Prothrombin Time Whole Bld POC 32.9 sec (11.1-13.5); ~PT, ~INR - Anti Coag Clinic 2.7 (0.9-1.1)
--- NOTE | 2024-03-10 09:28 | MHC.OFFVISCO ---
Intake Intake Visit Reasons: Anticoagulation Allergies Seasonal Allergies Adverse Reaction (Mild, Verified 03/10/24 09:21) Nasal congestion Medication List - Last Reconciled 03/10/24 by Flakita Miner RN atorvastatin 40 mg PO DAILY cholecalciferol (vitamin D3) 25 mcg PO DAILY levothyroxine 88 mcg PO DAILY metoprolol tartrate 50 mg PO BID nitroglycerin 0.3 mg sublingual Q5M PRN omega-3 fatty acids (Fish Oil Concentrate) 1,000 mg PO DAILY warfarin 7.5 mg See Protocol PO DAILY Nursing Note NO CP,SOB,DIET/MED CHANGES,FALLS OR SX OF BLEEDING. CONTINUE PRESENT DOSEA ND FOLLOW-IP IN 4 WEEKS. GOOD UNDERSTANDING OF DOSING INSTR. Anti-Coag Initial Assessment Social Hx Patient Tobacco Use Status: Current everyday Tobacco user alcohol intake: never Coding Level of Care Code Est Patient Level 1 Diagnoses Current use of anticoagulant therapy Z79.01 Assessment & Plan Assessment & Plan (1) Current use of anticoagulant therapy: Code(s): Z79.01 - [facility] (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 Category: Medical
== END 2024-03-10 09:32 | disposition home or self-care (01) ==
LOC: HO.ACS 09:20
PROVIDERS: PCP Internal Medicine; Visit Provider Internal Medicine
DX: Z79.01 Long term (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 (principal)

== ENCOUNTER → 2024-03-10 09:20 | Outpatient (BNVA) | payer MEDICARE, SELFPAY | PROVIDERS: PCP Internal Medicine; Visit Provider Internal Medicine | DX: I48.20 Chronic atrial fibrillation, unspecified (principal); Z79.01 Long term (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; Z51.81 Encounter for therapeutic drug level monitoring | CPT/HCPCS: 85610; 99211 ==

== ENCOUNTER 2024-03-30 09:46 | Outpatient (REF) | payer MEDICARE, SELFPAY ==
--- OUTSIDE RECORDS SUMMARY | 2024-03-30 10:11 | XMS_ITS ---
Author Organization [facility] Address [address] [place] [phone] Care Team Providers Care Home Housekeeper Name Role Phone Onofre Sandy MD Primary Care Provider Shabbir Murray Jr [phone] REASON FOR VISIT warfarin Encounters Encounter Location Date Provider Diagnosis [facility] [address] [place] [phone] 06/28/2023 Shabbir Do Jr PLAN OF TREATMENT No Information
--- OUTSIDE RECORDS SUMMARY | 2024-03-30 10:11 | XMS_ITS ---
Author Organization [facility] Address [address] [place] [phone] Care Team Providers Care Animal Attendants And Trainers Name Role Phone Onofre Sandy MD Primary Care Provider UnavailShabbir Ackerman Jr REASON FOR VISIT pathology Encounters Encounter Location Date Provider Diagnosis [facility] [address] [place] [phone] 09/01/2023 Shabbir Do Jr PLAN OF TREATMENT No Information
--- OUTSIDE RECORDS SUMMARY | 2024-03-30 10:11 | XMS_ITS ---
Author Organization [facility] Address [address] [place] [address] Care Team Providers Care Screw Machine Set Up Operator Name Role Phone Onofre Sandy MD Primary Care Provider UnavailShabbir Ackerman Jr [phone] REASON FOR VISIT screening colon Encounters Encounter Location Date Provider Diagnosis [facility] Outpatient [address] [place] [phone] 08/27/2023 Shabbir Do Jr Encounter for screening colonoscopy Z12.11 and Colon polyps K63.5 ASSESSMENTS Encounter Date Diagnosis Assessment Notes Treatment Notes Treatment Clinical Notes 08/27/2023 Encounter for screening colonoscopy (ICD-10 - Z12.11) 08/27/2023 Colon polyps (ICD-10 - K63.5) PLAN OF TREATMENT No Information
--- OUTSIDE RECORDS SUMMARY | 2024-03-30 10:12 | XMS_ITS | Patient Health Record ---
Author Organization [facility] Address [address] [place] [address] Care Team Providers Care Greenbelt Name Role Phone Onofre Sandy MD Primary Care Provider Shabbir Murray Jr Unavailable [phone] ALLERGIES No Known Allergies RESULTS Component Value Reference Range Notes Prothrombin Time INR Reviewed date:08/27/2023 03:04:07 PM Interpretation: Performing Lab:[facility], [address] [place] [phone] Notes/Report: Prothrombin Time 12.4 11.1-13.3 SEC INTERNATIONAL [...] Pathology Reviewed date:09/01/2023 07:48:26 AM Interpretation: Performing Lab:[address] [phone] Notes/Report: REASON FOR REFERRAL No Information MEDICATIONS [...] day(s) 06/28/2023 Active Fish Oil + D3 5117-0802 MG-UNIT 1 capsule Orally Three times a [...] Problem Colon cancer screening (Z12.11) Active confirmed [id number] Problem Encounter for other preprocedural examination (Z01.818) Active confirmed [id number] VITAL SIGNS Temperature 96.0 degrees Fahrenheit 06/28/2023 Blood pressure diastolic 00 mm Hg 06/28/2023 Height 5 ft 10 in in 06/28/2023 Blood pressure systolic 000 mm Hg 06/28/2023 Weight 248 lbs 06/28/2023 BMI 35.58 kg/m2 06/28/2023 Encounters Encounter Location Date Provider Diagnosis [facility] [place] Out[place] [address] [place] [id number] 08/27/2023 Shabbir Do Jr Encounter for screening colonoscopy Z12.11 and Colon polyps K63.5 [facility] [address] [place] [phone] 04/08/2023 Shabbir Do Jr [facility] [address] [place] [phone] 06/28/2023 Shabbir Do Jr Colon cancer screening Z12.11 and Encounter for other preprocedural examination Z01.818 [facility] [address] [place] [phone] 04/06/2023 Shabbir Do Jr [facility] [address] [place] [phone] 06/28/2023 Shabbir Do Jr [facility] [address] [place] [address], [place] [address] 09/01/2023 Shabbir Do Jr ASSESSMENTS Encounter Date [...] OF [place] [address] MEGG[place] SIM[place] [phone] [id number] LAN CANAS Self - patient is the insured MEDICAL (GENERAL) HISTORY Medical History History ICD Code Coronary artery disease, history of ID 2 012 Hodgkin's disease 1996 Paroxysmal atrial fibrillation Hypothyroidism Surgical History Surgery Date(Month/Year)
[2024-03-30 10:38] LABS: MANUAL DIFF FLAG NO
[2024-03-30 10:52] LABS: Basophils Absolute Auto 0.1 X10*3/uL (0.0-0.2); Eosinophils Absolute Auto 0.5 X10*3/uL (0.0-0.4); Eosinophils Percent Auto 7.3 % (0-4); Hemoglobin 15.1 g/dl (14.0-18.0); Imm Gran Abs Auto 0.03 X10*3/uL (0.00-0.03); Imm Gran Pct Auto 0.4 % (0.0-0.4); Lymphocytes Absolute Auto 1.9 X10*3/uL (1.2-4.9); Mean Corpuscular HGB Conc 34.3 g/dl (31.0-36.0); Mean Corpuscular Hemoglobin 33.3 pg (27.0-33.0); Mean Corpuscular Volume 97.1 fL (80.0-98.0); Mean Platelet Volume 10.1 fL (9.4-12.4); Monocytes Absolute Auto 0.7 X10*3/uL (0.1-1.2); Neutrophils Percent Auto 55.3 % (45-73); Platelet Count 182 X10*3/uL (160-400); Red Blood Count 4.53 X10*6/uL (4.60-5.80); Red Cell Distribution Width 12.6 % (11.0-16.0); White Blood Count 7.2 X10*3/uL (4.8-10.8)
[2024-03-30 10:59] LABS: Estimated Average Glucose 120 mg/dL; Hemoglobin A1C 156.3764 umol/L; Hemoglobin A1c % 5.8 % (<6.0); Total Hemoglobin (HGBA1C) 3972.6724 umol/L
[2024-03-30 11:01] LABS: Appearance Urine Clear; Color Urine Yellow; Glucose Urine UA Negative (Negative); Leukocyte Esterase Urine Negative (Negative); Nitrite Urine Negative (Negative); Specific Gravity - Urine 1.025 (1.005-1.025); UMIC TRIGGER UA YES; Urine Blood Trace (Negative); Urine Ketones Negative (Negative); Urine Protein Negative (Neg-Trace)
[2024-03-30 11:16] LABS: Alanine Aminotransferase 23 U/L (0-40); Anion Gap 9 (12-20); Aspartate Amino Transferase 36 U/L (5-37); Bilirubin Total 0.7 mg/dL (0.0-1.0); Blood Urea Nitrogen 14 mg/dL (9-16); Calcium 9.1 mg/dL (8.4-10.2); Carbon Dioxide 29 mmol/L (22-29); Chloride 109 mmol/L (96-108); Cholesterol 118 mg/dL (<200); Estimated Glomerular Filt Rate > 60; Glucose Fasting 123 mg/dL (60-99); HDL Cholesterol 24 mg/dL (>40); LDL Cholesterol Calculated 45 mg/dL (<100); Potassium 4.8 mmol/L (3.3-5.1); Sodium 142 mmol/L (135-145); Total Protein 6.4 g/dL (6.5-8.0); Triglycerides 245 mg/dL (<150)
[2024-03-30 11:30] LABS: Free T4 (Free Thyroxine) 1.13 ng/dL (0.71-1.85); Thyroid Stimulating Hormone 1.86 uIU/mL (0.32-4.0)
[2024-03-30 11:34] LABS: Creatinine Urine 210.18 mg/dL; Microalbum/Creatinine Ratio Ur 21.4 ug/mg cr (<30)
[2024-03-30 11:41] LABS: Bacteria Urine Trace (None Seen); Hyaline Casts Urine 0-2 /LPF (0-2); Squamous Epithelial Cell Urine 0-2 /HPF (0-2); WBC Urine 0-5 /HPF (0-5)
[2024-03-30 11:43] LABS: Prostate Specific Antigen Scr 0.91 ng/mL (<0.05-4.0)
[2024-03-30 12:27] LABS: Alkaline Phosphatase 70 U/L (39-117)
== END 2024-03-30 09:47 | disposition home or self-care (01) ==
LOC: HO.10HDL 09:46
PROVIDERS: Visit Provider Internal Medicine
DX: I25.10 Atherosclerotic heart disease of native coronary artery without angina pectoris (principal); I10 Essential (primary) hypertension; E03.9 Hypothyroidism, unspecified; E78.00 Pure hypercholesterolemia, unspecified; R73.03 Prediabetes; Z12.5 Encounter for screening for malignant neoplasm of prostate
CPT/HCPCS: 36415; 80053; 80061; 81001; 81003; 82043; 82570; 83036; 84153; 84439; 84443; 85025

== ENCOUNTER 2024-04-12 09:19 | Outpatient (AMB) | payer MEDICARE, SELFPAY ==
[2024-04-12 09:28] LABS: Prothrombin Time Whole Bld POC 20.6 sec (11.1-13.5); ~PT, ~INR - Anti Coag Clinic 1.7 (0.9-1.1)
--- NOTE | 2024-04-12 09:33 | MHC.OFFVISCO ---
Intake Intake Visit Reasons: Anticoagulation Allergies Seasonal Allergies Adverse Reaction (Mild, Verified 04/12/24 09:22) Nasal congestion Medication List - Last Reconciled 04/12/24 by Flakita Miner RN atorvastatin 40 mg PO DAILY cholecalciferol (vitamin D3) 25 mcg PO DAILY levothyroxine 88 mcg PO DAILY metoprolol tartrate 50 mg PO BID nitroglycerin 0.3 mg sublingual Q5M PRN omega-3 fatty acids (Fish Oil Concentrate) 1,000 mg PO DAILY warfarin 7.5 mg See Protocol PO DAILY Nursing Note PT.STATES THAT HE MISSED ONE DOSE THIS WEEK. NO CP,SOB,DIEWT/MED CHANGES,FALLS OR SX OF BLEEDING. BOOST TO 11.25MGM TODAY THEN RESUME USUAL DOSE AND FOLLOW-UP IN 4 WEEKS. NO GREENS 2-3 DAYS GOOD UNDERSTANDING OF DOSING INSTR. Anti-Coag Initial Assessment Social Hx Patient Tobacco Use Status: Current everyday Tobacco user alcohol intake: never Coding Level of Care Code Est Patient Level 1 Diagnoses Current use of anticoagulant therapy Z79.01 Assessment & Plan Assessment & Plan (1) Current use of anticoagulant therapy: Code(s): Z79.01 - FPC (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 Category: Medical
== END 2024-04-12 09:37 | disposition home or self-care (01) ==
LOC: HO.ACS 09:19
PROVIDERS: PCP Internal Medicine; Visit Provider Internal Medicine
DX: Z79.01 Long term (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 (principal)

== ENCOUNTER → 2024-04-12 09:19 | Outpatient (BNVA) | payer MEDICARE, SELFPAY | PROVIDERS: PCP Internal Medicine; Visit Provider Internal Medicine | DX: I48.20 Chronic atrial fibrillation, unspecified (principal); Z79.01 Long term (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; Z51.81 Encounter for therapeutic drug level monitoring | CPT/HCPCS: 85610; 99211 ==

== ENCOUNTER 2024-05-10 08:54 | Outpatient (AMB) | payer MEDICARE, SELFPAY ==
--- OUTSIDE RECORDS SUMMARY | 2024-05-10 08:57 | XMS_ITS | Patient Health Record ---
Author Organization [facility] Address [address] [place] [address] Care Team Providers Care Green Chain Off Bearer Name Role Phone Onofre Sandy MD Primary Care Provider Shabbir Murray Jr Unavailable ALLERGIES No Known Allergies RESULTS Component Value Reference Range Notes Prothrombin Time INR Reviewed date:08/27/2023 03:04:07 PM Interpretation: Performing Lab:[facility], [address] [place] [phone] Notes/Report: Prothrombin Time 12.4 11.1-13.3 SEC INTERNATIONAL [...] Pathology Reviewed date:09/01/2023 07:48:26 AM Interpretation: Performing Lab:[address] [phone] Notes/Report: REASON FOR REFERRAL No Information MEDICATIONS [...] day(s) 06/28/2023 Active Fish Oil + D3 6477-7895 MG-UNIT 1 capsule Orally Three times a [...] Problem Colon cancer screening (Z12.11) Active confirmed [id number] Problem Encounter for other preprocedural examination (Z01.818) Active confirmed [id number] VITAL SIGNS Temperature 96.0 degrees Fahrenheit 06/28/2023 Blood pressure diastolic 00 mm Hg 06/28/2023 Height 5 ft 10 in in 06/28/2023 Blood pressure systolic 000 mm Hg 06/28/2023 Weight 248 lbs 06/28/2023 BMI 35.58 kg/m2 06/28/2023 Encounters Encounter Location Date Provider Diagnosis [facility] [place] [address] [place] [id number] 08/27/2023 Shabbir Do Jr Encounter for screening colonoscopy Z12.11 and Colon polyps K63.5 [facility] [address] [place] [phone] 06/28/2023 Shabbir Do Jr Colon cancer screening Z12.11 and Encounter for other preprocedural examination Z01.818 [facility] [address] [place] [phone] 06/28/2023 Shabbir Do Jr [facility] [address] [place] [phone] 09/01/2023 Shabbir Do Jr ASSESSMENTS Encounter Date [...] OF [place] [address] [place] [address] [id number] LAN CANAS Self - patient is the insured MEDICAL (GENERAL) HISTORY Medical History History ICD Code Coronary artery disease, history of [place] 2 012 Hodgkin's disease 1996 Paroxysmal atrial fibrillation Hypothyroidism Surgical History Surgery Date(Month/Year)
--- OUTSIDE RECORDS SUMMARY | 2024-05-10 08:57 | XMS_ITS ---
Author Organization [facility] Address [address] [place] [phone] Care Team Providers Care Capacitor Tester Name Role Phone Onofre Sandy MD Primary Care Provider Shabbir Murray Jr [phone] REASON FOR VISIT warfarin Encounters Encounter Location Date Provider Diagnosis [facility] [address] [place] [phone] 06/28/2023 Shabbir Do Jr PLAN OF TREATMENT No Information
--- OUTSIDE RECORDS SUMMARY | 2024-05-10 08:57 | XMS_ITS ---
Author Organization [facility] Address [address] [place] [address] Care Team Providers Care Automotive Worker Name Role Phone Onofre Sandy MD Primary Care Provider UnavailShabbir Ackerman Jr [phone] REASON FOR VISIT screening colon Encounters Encounter Location Date Provider Diagnosis [facility] [place] Out[place] [address] [place] [id number] 08/27/2023 Shabbir Do Jr Encounter for screening colonoscopy Z12.11 and Colon polyps K63.5 ASSESSMENTS Encounter Date Diagnosis Assessment Notes Treatment Notes Treatment Clinical Notes 08/27/2023 Encounter for screening colonoscopy (ICD-10 - Z12.11) 08/27/2023 Colon polyps (ICD-10 - K63.5) PLAN OF TREATMENT No Information
--- OUTSIDE RECORDS SUMMARY | 2024-05-10 08:57 | XMS_ITS ---
Author Organization [facility] Address [address] [place] [phone] Care Team Providers Care Toy Assembler Wood Name Role Phone Onofre Sandy MD Primary Care Provider UnavailShabbir Ackerman Jr [phone] REASON FOR VISIT pathology Encounters Encounter Location Date Provider Diagnosis [facility] [address] [place] [phone] 09/01/2023 Shabbir Do Jr PLAN OF TREATMENT No Information
--- NOTE | 2024-05-10 09:02 | MHC.OFFVISCO ---
Intake Intake Visit Reasons: Anticoagulation Allergies Seasonal Allergies Adverse Reaction (Mild, Verified 05/10/24 08:58) Nasal congestion Medication List - Last Reconciled 05/10/24 by Suzanne Chairez RN atorvastatin 40 mg PO DAILY cholecalciferol (vitamin D3) 25 mcg PO DAILY levothyroxine 88 mcg PO DAILY metoprolol tartrate 50 mg PO BID nitroglycerin 0.3 mg sublingual Q5M PRN omega-3 fatty acids (Fish Oil Concentrate) 1,000 mg PO DAILY warfarin 7.5 mg See Protocol PO DAILY Nursing Note INR: 2.5- in therapeutic range of 2-3 Medications and supplements reviewed- no changes No changes in health, diet, medications, or supplements, Denies any signs and symptoms of bleeding or bruising or clotting. Bleeding, bruising, clotting discussed Nutritional guidance given Dose: 11.25mg x 2, 7.5mg x 5 F/U INR: 4 weeks Patient verbalizes understanding of instructions given Anti-Coag Initial Assessment Social Hx Patient Tobacco Use Status: Current everyday Tobacco user alcohol intake: never Coding Level of Care Code Est Patient Level 1 Diagnoses Current use of anticoagulant therapy Z79.01 Assessment & Plan Assessment & Plan (1) Current use of anticoagulant therapy: Code(s): Z79.01 - oil heaterman (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 Category: Medical
[2024-05-10 09:03] LABS: Prothrombin Time Whole Bld POC 30.4 sec (11.1-13.5); ~PT, ~INR - Anti Coag Clinic 2.5 (0.9-1.1)
== END 2024-05-10 09:41 | disposition home or self-care (01) ==
LOC: HO.ACS 08:54
PROVIDERS: PCP Internal Medicine; Visit Provider Internal Medicine
DX: Z79.01 Long term (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 (principal)

== ENCOUNTER → 2024-05-10 08:54 | Outpatient (BNVA) | payer MEDICARE, SELFPAY | PROVIDERS: PCP Internal Medicine; Visit Provider Internal Medicine | DX: I48.20 Chronic atrial fibrillation, unspecified (principal); Z79.01 Long term (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; Z51.81 Encounter for therapeutic drug level monitoring | CPT/HCPCS: 85610; 99211 ==

== ENCOUNTER 2024-06-09 09:21 | Outpatient (AMB) | payer MEDICARE, SELFPAY ==
[2024-06-09 09:31] LABS: Prothrombin Time Whole Bld POC 23.4 sec (11.1-13.5); ~PT, ~INR - Anti Coag Clinic 1.9 (0.9-1.1)
--- NOTE | 2024-06-09 09:35 | MHC.OFFVISCO ---
Intake Intake Visit Reasons: Anticoagulation Allergies Seasonal Allergies Adverse Reaction (Mild, Verified 06/09/24 09:26) Nasal congestion Medication List - Last Reconciled 06/09/24 by Shirley Wang RN atorvastatin 40 mg PO DAILY cholecalciferol (vitamin D3) 25 mcg PO DAILY levothyroxine 88 mcg PO DAILY metoprolol tartrate 50 mg PO BID nitroglycerin 0.3 mg sublingual Q5M PRN omega-3 fatty acids (Fish Oil Concentrate) 1,000 mg PO DAILY warfarin 7.5 mg See Protocol PO DAILY Nursing Note INR: 1.9?out of therapeutic range of 2-3 Medications and supplements reviewed Patient status: well Medications or supplements: no changes Diet: had cabbage this week which could be responsible for the lower INR Denies any signs and symptoms of bleeding or clotting or unusual bruising Bleeding, bruising, clotting discussed Nutritional guidance given: to avoid greens today and have a serving of foods from the list that raises the INR Dose: 7.5mg X 5 days and 11.25mg X 2 days (Tues & Fri) F/U INR Date : 4 weeks?? Patient verbalizing understanding of instructions given. Anti-Coag Initial Assessment Social Hx Patient Tobacco Use Status: Current everyday Tobacco user alcohol intake: never Coding Level of Care Code Est Patient Level 1 Diagnoses Current use of anticoagulant therapy Z79.01 Results AMB INR Fingerstick AMB INR Fingerstick 1.9 Last Edit by Shirley Wang RN on 06/09/24 09:33 interface delay Assessment & Plan Assessment & Plan (1) Current use of anticoagulant therapy: Code(s): Z79.01 - intermediate teacher (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 Category: Medical
--- OUTSIDE RECORDS SUMMARY | 2024-06-09 10:29 | XMS_ITS ---
Author Organization [facility] Address [address] [place] [phone] Care Team Providers Care Top Closer Name Role Phone Onofre Sandy MD Primary Care Provider Shabbir Murray Jr REASON FOR VISIT warfarin Encounters Encounter Location Date Provider Diagnosis [facility] [address] [place] [phone] 06/28/2023 Shabbir Do Jr Plan Of Treatment No Information Progress Notes * LAN CANAS GDOB:[birth year] (72 yo M)Acc No.[id number]:06/28/2023 Patient:?LAN CANAS :1950???Age:72 Y???Sex:Male Address:[address] [place] [address], [address] * true * Date:? Generated for Clem smith/Sandra/eTransmitting on:?06/09/2024 10:29 AM EDT
--- OUTSIDE RECORDS SUMMARY | 2024-06-09 10:29 | XMS_ITS ---
Author Organization [facility] Address [address] [place] [phone] Care Team Providers Care Club Licensee Name Role Phone Du ESCALANTE, Onofre Primary Care Provider Shabbir Murray Jr REASON FOR VISIT screening colon Encounters Encounter Location Date Provider Diagnosis [facility] [place] [address] [place] [id number] 08/27/2023 Shabbir Do Jr Encounter for screening colonoscopy Z12.11 and Colon polyps K63.5 Assessments Encounter Date Diagnosis (ICD Code) Assessment Notes Treatment Notes Treatment Clinical Notes Section Notes 08/27/2023 Encounter for screening colonoscopy (ICD-10 - Z12.11) 08/27/2023 Colon polyps (ICD-10 - K63.5) Plan Of Treatment No Information Progress Notes * CANASLAN GDOB:[birth year] (73 yo M)Acc No.[id number]:08/27/2023 COLON WITH MAC Patient:?LAN CANAS Provider:?Shabbir Do MD :1950???Age:72 Y???Sex:Male Jr e:08/27/2023 Address:[address] [place], [place] [phone] Pcp:Onofre Sandy MD Subjective: * Chief Complaints: * ???1. Screening colon. * Medical History:? Objective: * Vitals:? Assessment: * Assessment: 1.?Encounter for screening c olonoscopy - Z12.11 (Primary)???2.?Colon polyps - K63.5??? Plan: * Treatment: * Procedure Codes:?64188 COLON OSCOPY AND BIOPSY, 0529F INTRVL 3+YRS PTS CLNSCP DOCD * * The named appointment provid er may or may not be the originator of this progress note, and it is not deemed complete until electronically signed by the appointment provider. Sign off status: Pending * Provider:?Shabbir Do MD Date:?0 08/27/2023 Generated for Clem smith/Sandra/Azizaitting on:?06/09/2024 10:29 AM EDT
--- OUTSIDE RECORDS SUMMARY | 2024-06-09 10:30 | XMS_ITS ---
Author Organization [facility] Address [address] [place] [address] Care Team Providers Care Controls Design Engineer Name Role Phone Onofre Sandy MD Primary Care Provider Shabbir Murray Jr REASON FOR VISIT pathology Encounters Encounter Location Date Provider Diagnosis [facility] [address] [place] [phone] 09/01/2023 Shabbir Do Jr Plan Of Treatment No Information Progress Notes * LAN CNAAS GDOB:[birth year] (72 yo M)Acc No.[id number]:09/01/2023 Patient:?LAN CANAS :1950???Age:72 Y???Sex:Male Address:[address] [place] [address], [address] * true * Date:? Generated for Clem smith/Sandra/eTransmitting on:?06/09/2024 10:29 AM EDT
== END 2024-06-09 09:42 | disposition home or self-care (01) ==
LOC: HO.ACS 09:21
PROVIDERS: PCP Internal Medicine; Visit Provider Internal Medicine Medical Oncology
DX: Z79.01 Long term (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 (principal)

== ENCOUNTER → 2024-06-09 09:21 | Outpatient (BNVA) | payer MEDICARE, SELFPAY | PROVIDERS: PCP Internal Medicine; Visit Provider Internal Medicine Medical Oncology | DX: I48.20 Chronic atrial fibrillation, unspecified (principal); Z79.01 Long term (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; Z51.81 Encounter for therapeutic drug level monitoring | CPT/HCPCS: 85610; 99211 ==

== ENCOUNTER 2024-07-14 09:37 | Outpatient (AMB) | payer MEDICARE, SELFPAY ==
[2024-07-14 09:59] LABS: Prothrombin Time Whole Bld POC 23.3 sec (11.1-13.5); ~PT, ~INR - Anti Coag Clinic 1.9 (0.9-1.1)
--- NOTE | 2024-07-14 10:05 | MHC.OFFVISCO ---
Intake Intake Visit Reasons: Anticoagulation Allergies Seasonal Allergies Adverse Reaction (Mild, Verified 07/14/24 09:52) Nasal congestion Medication List - Last Reconciled 07/14/24 by Kate Dunlap RN atorvastatin 40 mg PO DAILY cholecalciferol (vitamin D3) 25 mcg PO DAILY levothyroxine 88 mcg PO DAILY metoprolol tartrate 50 mg PO BID nitroglycerin 0.3 mg sublingual Q5M PRN omega-3 fatty acids (Fish Oil Concentrate) 1,000 mg PO DAILY warfarin 7.5 mg See Protocol PO DAILY Nursing Note INR: 1.9 out of therapeutic range 2.0-3.0 x 2 months Medications and supplements reviewed No changes in health, diet, medications, or supplements, - may have had more greens than usual Denies any signs and symptoms of bleeding or bruising or clotting. Bleeding, bruising, clotting discussed Nutritional guidance given - review food list weekly, remember greens lower your INR especially cooked greens Dose: increase dose this week 11.25mg x 3 days then resume 11.25mg x 2 days/ 7.5mg x 5 days F/U INR: 4 weeks per pt request - he stated he can correct his diet to improve INR Patient verbalizes understanding of instructions given with read back Anti-Coag Initial Assessment Social Hx Patient Tobacco Use Status: Current everyday Tobacco user alcohol intake: never Questionnaires HAS-BLED Does the patient had uncontrolled Hypertension?: No Does the patient have renal disease?: No Does the patient have liver disease?: No Does the patient have a history of stroke?: No Has the patient had major bleeding or predisposition to bleeding?: No Does the patient have labile INRs?: No Is the patient over 65 years of age?: Yes Is the patient on medications that gives them a predisposition to bleeding?: Yes Does the patient use alcohol?: Yes HAS-BLED Score: 3 CHADSVASC Age: 66-74 Gender: Male Does the patient have a history of CHF?: No Does the patient have a history of Hypertension?: Yes Does the patient have a history of Stroke/TIA/Thromboembolism?: No Does the patient have a history of Vascular Disease (prior AR, PAD or aortic plaque)?: Yes Does the patient have a history of Diabetes?: No CHADS VACS Score: 3 Agusto Prediction Score Rsk VTE Active Cancer: No Previous VTE, excluding superficial vein thrombosis: No Reduced mobility: No Already known Thrombophilic Condition: No With-in last month Trauma and/or Surgery: No Elderly 70 year or older: Yes Heart and/or Respiratory Failure: No Acute Myocardial infarction and/or Ischemic Stroke: Yes ([place] 2011) Acute Infection and/or Rheumatologic Disorder: No Obesity (BMI 30 or greater): No Ongoing Hormonal Treatment: No Score: 2 Agusto Score less than 4; Low Risk of VTE Agusto Score 4 or greater; High Risk of VTE Coding Level of Care Code Est Patient Level 1 Diagnoses Current use of anticoagulant therapy Z79.01 Assessment & Plan Assessment & Plan (1) Current use of anticoagulant therapy: Code(s): Z79.01 - halfway (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 Category: Medical
== END 2024-07-14 10:15 | disposition home or self-care (01) ==
LOC: HO.ACS 09:37
PROVIDERS: PCP Internal Medicine; Visit Provider Internal Medicine Medical Oncology
DX: Z79.01 Long term (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 (principal)

== ENCOUNTER → 2024-07-14 09:37 | Outpatient (BNVA) | payer MEDICARE, SELFPAY | PROVIDERS: PCP Internal Medicine; Visit Provider Internal Medicine Medical Oncology | DX: I48.20 Chronic atrial fibrillation, unspecified (principal); Z79.01 Long term (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; Z51.81 Encounter for therapeutic drug level monitoring | CPT/HCPCS: 85610; 99211 ==

== ENCOUNTER 2024-07-28 14:19 | Outpatient (AMB) | payer MEDICARE, SELFPAY ==
--- NOTE | 2024-07-28 11:47 | A.OFFPC_ITS ---
Vital Signs 07/28/24 11:48 Height 5 ft 10 in Weight 240 lb BMI 34.4 BP 140/80 H Respiration 18 Pulse 56 Pulse Source Pulse Oximeter Temp 98.0 F Temp Source Oral Pulse Oximetry (%) 95 Oxygen Delivery Method Room Air Intake Visit Reasons: Routine Electronic Prepress Technician Required: No Accompanied by: Self / Same As Patient Allergies Seasonal Allergies Adverse Reaction (Mild, Verified 07/28/24 11:50) Nasal congestion Tobacco use date assessed: 07/28/24 Fall risk assessment: No Falls in past year Last assessed Fall Risk: 07/28/24 Dental Screening Dental Screen Date: 07/28/24 Did you have a dental visit in the last 12 months?: No Did you have a dental problem in the last 6 months where you did not have access to dental care?: No Was dental information given to patient?: Patient has dentist (Upper and Lower dentures) HPI HPI Comments History of Present Illness Details The patient is a 73 year old male with a past medical history of prediabetes, CAD s/p PCI 2012 BMS to RCA, p. afib, hypothyroid, obesity, presenting for follow up. Seen by pcp in Mar CV: Followed by cardiology. continues coumadin. Denies chest pain,exertional dyspnea. Prediabetes: A1C has been stable Hypothyroid-on levothyroxine Colonoscopy 08/2023 ROS CONSTITUTIONAL: Denies weight loss, fever and chills. HEENT: Denies changes in vision and hearing. RESPIRATORY: Denies SOB and cough. CV: Denies palpitations and CP GI: Denies abdominal pain, nausea, vomiting and diarrhea. : Denies dysuria and urinary frequency. MSK: Denies new myalgia and joint pain. SKIN: Denies rash and pruritus. NEUROLOGICAL: Denies headache PSYCHIATRIC: Denies recent changes in mood. PHYSICAL EXAM: GENERAL: Alert and oriented x 3. NAD EYES: EOMI. Anicteric. HENT: Moist mucous membranes. No scleral icterus. No cervical lymphadenopathy. LUNGS: Clear to auscultation bilaterally. CARDIOVASCULAR: Regular rate and rhythm. soft murmur. No JVD. ABDOMEN: Soft, non-tender +bs EXTREMITIES: No edema. Non-tender. SKIN: No rashes or lesions. Warm. NEUROLOGIC: No focal neurological deficits. CN II-XII grossly intact PSYCHIATRIC: Cooperative. Appropriate mood and affect [facility] Medical History Hodgkins disease Essential hypertension Hemorrhoids with complication Other and unspecified hyperlipidemia PAF (paroxysmal atrial fibrillation) Atherosclerotic cardiovascular disease Surgical History H/O colonoscopy (~08/27/23) History of cardiac catheterization (~12/2011) Family History Father Hodgkin lymphoma Mother No problems noted. Social History Housing: House Alcohol intake: never Patient Tobacco Use Status: Current everyday Tobacco user Cigarettes Per Day: 8 e-Cigarette/Vaping Use: Currently Using service: Yes Current occupational status: retired Cognitive needs: No Hearing needs: Yes (Bilateral) Vision needs: Yes (Rx glasses) Questionnaire PHQ-9 Over the last 2 weeks, how often have you been bothered by any of the following problems? 1. Little interest or pleasure in doing things: not at all 2. Feeling down, depressed, or hopeless: not at all 3. Trouble falling or staying asleep, or sleeping too much: not at all 4. Feeling tired or having little energy: not at all 5. Poor appetite or overeating: not at all 6. Feeling bad about yourself - or that you are a failure or have let yourself or your family down: not at all 7. Trouble concentrating on things, such as reading the newspaper or watching television: not at all 8. Moving or speaking so slowly that other people could have noticed. Or the opposite - being so fidgety or restless that you have been moving around a lot more than usual: not at all 9. Thoughts that you would be better off or of hurting yourself in some way: not at all Total score: 0 Depression Screening Interpretation: Negative Depression Screening Done: Yes 02002 - PHQ-9 Billing: Yes Source: Developed by Drs. Wally Whalen, Kayla De, Lamberto Murrell and colleagues, with an educational lisy from [employer]. Thrive Questionnaire Date Thrive assessed: 07/28/24 I am a: Patient Within the past 12 months, did the food you bought not last and you didn't have the money to get more?: Never true Within the past 12 months, did you worry whether your food would run out before you got money to buy more?: Never true Do you have trouble paying for medicines?: No Do you have trouble getting transportation to medical appointments?: No Do you have trouble paying your heating and electricity bill?: No Do you have trouble taking care of your child, family member or friend?: No Do you have trouble with day-to-day activities such as bathing, preparing meals, shopping, managing finances, etc.?: No Are you currently unemployed and looking for a job?: No Are you interested in more education?: No THRIVE Score: 0 AUDIT C Alcohol Use Questionnaire (AUDIT-C) 1. How often do you have a drink containing alcohol?: Never 3. How often do you have six or more drinks on one occasion?: Never Total Score: 0 GERONIMO-7 AMB Questionnaire GERONIMO-7 Date GERONIMO - 7 assessed: 07/28/24 Feeling nervous, anxious, or on edge: 0 = Not at all Not being able to stop or control worryin = Not at all Worrying too much about different things: 0 = Not at all Trouble relaxin = Not at all Being so restless that it is hard to sit still: 0 = Not at all Becoming easily annoyed or irritable: 0 = Not at all Feeling afraid as if something awful might happen: 0 = Not at all Total GERONIMO-7 score (0-4 normal; 5-9 mild; 10-14 moderate; 15-21 severe): 0 Source: Developed by Drs. Wally Whalen, Kayla De, Lamberto Murrell and colleagues, with an educational lisy from [employer]. Physical exam (Primary Care) Vital Signs: Last Vital Signs Temp 98.0 F 07/28/24 11:48 Pulse 56 07/28/24 11:48 Resp 18 07/28/24 11:48 BP 140/80 H 07/28/24 11:48 Pulse Ox 95 07/28/24 11:48 Oxygen Delivery Method Room Air 07/28/24 11:48 BMI result Body Mass Index 34.4 Tobacco/Smoking Status: Tobacco use Status Tobacco use date assessed 07/28/24 07/28/24 11:52 Patient Tobacco Use Status Current everyday Tobacco 07/28/24 11:52 e-Cigarette/Vaping Use Currently Using 07/28/24 11:52 PHQ-9: PHQ-9 Score PHQ-9: Total score 0 07/30/24 14:55 Depression Screening Interpretation: Negative Thrive Assessment: Date of Thrive Assessment Date Thrive assessed 07/28/24 07/28/24 11:52 Coding Level of Care Code New Pt Level 4 (88394) Diagnoses Prediabetes R73.03 Primary hypertension I10 Hypertension type: primary hypertension Essential hypertension I10 PAF (paroxysmal atrial fibrillation) I48.0 Additional Codes PHQ-9 - 25362 - PHQ-9 Billing: Yes ([id number]) Assessment & Plan Assessment & Plan (1) Prediabetes: Code(s): R73.03 - Prediabetes Category: Medical (2) Hypertension: Code(s): I10 - Essential (primary) hypertension Category: Medical Qualifiers: Hypertension type: primary hypertension Qualified Code(s): I10 - Ess ential (primary) hypertension (3) Essential hypertension: Code(s): I10 - Essential (primary) hypertension Category: Medical (4) PAF (paroxysmal atrial fibrillation): Comment: follows w/HCS-taking warfarin Code(s): I48.0 - Paroxysmal atrial fibrillation Category: Medical Plan 73 yo establish care Past medical, surgical, social reviewed CAD-stable. bp controlled Hypothyroid-stable on levothyroxine Orders: Orders Comprehensive Met. Panel 07/28/24 I10 - Essential (primary) hypertension, I48.0 - Paroxysmal atrial fibrillation, R73.03 - Prediabetes TSH reflex Free T4 07/28/24 I10 - Essential (primary) hypertension, I48.0 - Paroxysmal atrial fibrillation, R73.03 - Prediabetes Hemoglobin A1c 07/28/24 I10 - Essential (primary) hypertension, I48.0 - Paroxysmal atrial fibrillation, R73.03 - Prediabetes Complete Blood Count Auto Diff 5 Months I10 - Essential (primary) hypertension, I48.0 - Paroxysmal atrial fibrillation, R73.03 - Prediabetes Comprehensive Met. Panel 5 Months I10 - Essential (primary) hypertension, I48.0 - Paroxysmal atrial fibrillation, R73.03 - Prediabetes Lipid Panel 5 Months I10 - Essential (primary) hypertension, I48.0 - Paroxysmal atrial fibrillation, R73.03 - Prediabetes Hemoglobin A1c 5 Months I10 - Essential (primary) hypertension, I48.0 - Paroxysmal atrial fibrillation, R73.03 - Prediabetes Medications: New levothyroxine 88 mcg PO DAILY 90 tabs 3RF metoprolol tartrate 50 mg PO BID 180 tabs 3RF Refilled nitroglycerin do not exceed 3 doses per episode 0.3 mg sublingual Q5M PRN 30 tabs 0RF Chest Pain atorvastatin 40 mg PO DAILY 90 tabs 3RF
[2024-07-28 11:48] VITALS: BP 140/80; PULSE 56; RESP 18; TEMP 36.7; O2SAT 95; BMI 34.4
--- OUTSIDE RECORDS SUMMARY | 2024-07-28 14:26 | XMS_ITS ---
Author Organization [facility] Address [address] [place] [address] Care Team Providers Care Tent Assembler Name Role Phone Onofre Sandy MD Primary Care Provider Shabbir Murray Jr [phone] REASON FOR VISIT warfarin Encounters Encounter Location Date Provider Diagnosis [facility] [address] [place] [phone] 06/28/2023 Shabbir Do Jr Plan Of Treatment No Information Progress Notes * LAN CANAS GDOB:[birth year] (72 yo M)Acc No.[id number]:06/28/2023 Patient:?LAN CANAS :1950???Age:72 Y???Sex:Male Address:[address] [place] [address], [address] * true * Date:? Generated for Clem smith/Sandra/eTransmitting on:?07/28/2024 02:26 PM EDT
--- OUTSIDE RECORDS SUMMARY | 2024-07-28 14:26 | XMS_ITS ---
Author Organization [facility] Address [address] [place] [address] Care Team Providers Care Elder Assistant Name Role Phone Du ESCALANTE, Onofre Primary Care Provider Shabbir Murray Jr REASON FOR VISIT screening colon Encounters Encounter Location Date Provider Diagnosis [facility] [address] [place] [phone] 08/27/2023 Shabbir oD Jr Encounter for screening colonoscopy Z12.11 and Colon polyps K63.5 Assessments Encounter Date Diagnosis (ICD Code) Assessment Notes Treatment Notes Treatment Clinical Notes Section Notes 08/27/2023 Encounter for screening colonoscopy (ICD-10 - Z12.11) 08/27/2023 Colon polyps (ICD-10 - K63.5) Plan Of Treatment No Information Progress Notes * CANASLAN GDOB:[birth year] (73 yo M)Acc No.[id number]:08/27/2023 COLON WITH MAC Patient:?LAN CANAS Provider:?Shabbir Do MD :1950???Age:72 Y???Sex:Male Jr e:08/27/2023 Address:[address] [place] [address] Pcp:Onofre Sandy MD Subjective: * Chief Complaints: * ???1. Screening colon. * Medical History:? Objective: * Vitals:? Assessment: * Assessment: 1.?Encounter for screening c olonoscopy - Z12.11 (Primary)???2.?Colon polyps - K63.5??? Plan: * Treatment: * Procedure Codes:?27890 COLON OSCOPY AND BIOPSY, 0529F INTRVL 3+YRS PTS CLNSCP DOCD * * The named appointment provid er may or may not be the originator of this progress note, and it is not deemed complete until electronically signed by the appointment provider. Sign off status: Pending * Provider:?Shabbir Do MD Date:?0 08/27/2023 Generated for Clem smith/Sandra/Azizaitting on:?07/28/2024 02:26 PM EDT
--- OUTSIDE RECORDS SUMMARY | 2024-07-28 14:26 | XMS_ITS | Patient Health Record ---
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 Role Phone Onofre Sandy MD Primary Care Provider Shabbir Murray Jr Unavailable Allergies No Known Allergies Results Component Value Reference Range Notes Prothrombin Time INR Reviewed date:08/27/2023 03:04:07 PM Interpretation: Performing Lab:[facility], [address] [place] [phone] Notes/Report: Prothrombin Time 12.4 11.1-13.3 SEC [employer]NATIONAL [...] Pathology Reviewed date:09/01/2023 07:48:26 AM Interpretation: Performing Lab:[facility], [address] [place] [phone] Notes/Report: --- Name: Alexis Pickering rd Sr Age/Sex: 72/M : 1950 Unit#: [id number] Attend Dr: Shabbir Do MD Re08/27/23 Status : [facility] Location: [facility] Disch: --- SPEC : [id number] RECD : 08/27/23 STATUS: RAEToño RAEJaswinder NUM: [id number] MOOK: 08/27/23 [facility] DR: Shabbir Do MD ENTERED: 08/27/23 41 SP TYPE: Surgical OTHR DR: Onofre Sandy MD ORDERED: HE Stain/3, Gross Micro L4 Diagnosis Colon, right, polyp: Tubular adenoma; negative for high-grade dysplasia and carcinoma. Clinical History Pre-Op Dx: Screening Post-Op Dx: Colon polyp Microscopic Description Microscopic sections reviewed. Material Received Right colon polyp Gross Description Received in formalin labeled ?right colon polyp? are 2 montilla-pink irregular tissue fragments measuring 0.15 and 0 .2 cm, submitted in toto in a cassette labeled A. CEDS Copies To: Shabbir Do MD [address] [place] [address] [address] [place] [id number] Onofre Sandy MD [address] [place] [address], [address] [place] [id number] --- Signed (signature on file) Shirley Gladys 08/31/23 1641 --- END OF REPORT Reason For Referral No Information Medications Medication SIG (Take, Route, Frequency, Duration) Notes [...] day(s) 06/28/2023 Active Fish Oil + D3 2964-5485 MG-UNIT 1 capsule Orally Three times a day for 30 day(s) 06/28/2023 Active Immunizations Vaccine Route Administration Date Status Comme nts Influenza Unknown 02/09/2023 Administered Social History Tobacco Use: Social History Observation Description Date Details (start date - stop date) Current Smoker NA - NA Tobacco Use/Smoking Question Answer Notes Patient is a current smoker Alcohol Screen Question Answer Notes Did you have a drink containing alcohol in the p ast year? No Points 0 Interpretation Negative Problems Problem Type SNOMED Code ICD Code Onset Dates Problem Status W/U Status Risk Notes Problem 362111590 Colon cancer screening (Z12.11) Active confirmed Problem 546741595 Encounter for other preprocedural examination (Z01.818) Active confirmed Encounters Encounter Location Date Provider Diagnosis [facility] [address], [place] [phone] 08/27/2023 Shabbir Do Jr Encounter for screening colonoscopy Z12.11 and Colon polyps K63.5 [facility] [address] [place] [address] 09/01/2023 Shabbir Do Jr Assessments Encounter Date Diagnosis (ICD Code) Assessment Notes Treatment Notes Treatment Clinical Notes Section Notes 08/27/2023 Encounter for screening colonoscopy (ICD-10 - Z12.11) 08/27/2023 Colon polyps (ICD-10 - K63.5) Plan Of Treatment Future Test Test Name Order Date COLONOSCOPY 06/28/2023 Insurance Providers Payer Name Payer Address Payer Phone Subscriber Number Group Number Insured Name Patient Relationship to Insured Coverage Start Date Coverage End Date MEDICARE OF [place] [address] [place] [address] [id number] LAN PICKERING Self - patient is the insured Medical (General) History Medical History History ICD Code Coronary artery disease, history of [place] 2 012 Hodgkin's disease 1996 Paroxysmal atrial fibrillation Hypothyroidism Surgical History Surgery Date(Month/Year)
--- OUTSIDE RECORDS SUMMARY | 2024-07-28 14:26 | XMS_ITS ---
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 Generated for Clem smith/Sandra/eTransmitting on:?07/28/2024 02:26 PM EDT
== END 2024-07-28 16:11 | disposition home or self-care (01) ==
LOC: HO.HMCHD 14:20
PROVIDERS: PCP Internal Medicine; Visit Provider Internal Medicine
DX: R73.03 Prediabetes (principal); I10 Essential (primary) hypertension; I48.0 Paroxysmal atrial fibrillation

== ENCOUNTER → 2024-07-28 14:19 | Outpatient (BNVA) | payer MEDICARE, SELFPAY | PROVIDERS: PCP Internal Medicine; Visit Provider Internal Medicine | DX: I25.10 Atherosclerotic heart disease of native coronary artery without angina pectoris (principal); I48.91 Unspecified atrial fibrillation; E03.9 Hypothyroidism, unspecified; R73.03 Prediabetes; I10 Essential (primary) hypertension; I48.0 Paroxysmal atrial fibrillation; E66.9 Obesity, unspecified; Z68.34 Body mass index [BMI] 34.0-34.9, adult | CPT/HCPCS: 96127; 99202 ==

== ENCOUNTER 2024-08-11 09:46 | Outpatient (AMB) | payer MEDICARE, SELFPAY ==
[2024-08-11 09:53] LABS: Prothrombin Time Whole Bld POC 24.5 sec (11.1-13.5)
--- OUTSIDE RECORDS SUMMARY | 2024-08-11 10:01 | XMS_ITS | Patient Health Record ---
Author Organization [facility] Address [address] [place] [address] Care Team Providers Care Physical Therapy Manager Name Role Phone Onofre Sandy MD Primary Care Provider Shabbir Murray Jr Unavailable Allergies No Known Allergies Results Component Value Reference Range Notes Prothrombin Time INR Reviewed date:08/27/2023 03:04:07 PM Interpretation: Performing Lab:[facility], [address] [place] [phone] Notes/Report: Prothrombin Time 12.4 11.1-13.3 SEC [employer]NATIONAL [...] Pathology Reviewed date:09/01/2023 07:48:26 AM Interpretation: Performing Lab:[facility], [address] [place] [phone] Notes/Report: --- Name: Alexis Pickering rd Sr Age/Sex: 72/M : 1950 Unit#: [id number] Attend Dr: Shabbir Do MD Re08/27/23 Status : [facility] Location: [facility] Disch: --- SPEC : [id number] RECD : 08/27/23 STATUS: RAEToño RAEJaswinder NUM: [id number] MOOK: 08/27/[address] [facility] [address]: Shabbir Do MD ENTERED: 08/27/23 [...] A. CEDS Copies To: Shabbir Do MD [address] [place] [address] [address] [place] [phone] Onofre Sandy MD [address] [place] [address], [address] [place] [address] --- Signed (signature on file) Shirley Gladys [...] day(s) 06/28/2023 Active Fish Oil + D3 9879-2808 MG-UNIT 1 capsule Orally Three times a [...] Problem Status W/U Status Risk Notes Problem [id number] Colon cancer screening (Z12.11) Active confirmed Problem 981068970 Encounter for other preprocedural examination (Z01.818) Active confirmed Encounters Encounter Location Date Provider Diagnosis [facility] [address] [place], [place] [phone] 08/27/2023 Shabbir Do Jr Encounter for screening colonoscopy Z12.11 and Colon polyps K63.5 [facility] [address] [place] [address] 09/01/2023 Shabbir Do Jr Assessments Encounter Date [...] OF [place] [address] [place] [address] [id number] LAN PICKERING Self - patient is the insured Medical (General) History Medical History History ICD Code Coronary artery disease, history of [place] 2 012 Hodgkin's disease 1996 Paroxysmal atrial fibrillation Hypothyroidism Surgical History Surgery Date(Month/Year)
--- NOTE | 2024-08-11 10:03 | MHC.OFFVISCO ---
Intake Intake Visit Reasons: Anticoagulation Allergies Seasonal Allergies Adverse Reaction (Mild, Verified 08/11/24 09:48) Nasal congestion Medication List - Last Reconciled 08/11/24 by Shirley Wang RN atorvastatin 40 mg PO DAILY cholecalciferol (vitamin D3) 25 mcg PO DAILY levothyroxine 88 mcg PO DAILY metoprolol tartrate 50 mg PO BID nitroglycerin 0.3 mg sublingual Q5M PRN omega-3 fatty acids (Fish Oil Concentrate) 1,000 mg PO DAILY warfarin 7.5 mg See Protocol PO DAILY Nursing Note INR: 2.0 in therapeutic range of 2-3 Medications and supplements reviewed No changes in health, diet, medications, or supplements, Denies any signs and symptoms of bleeding or bruising or clotting. Bleeding, bruising, clotting discussed Nutritional guidance given to avoid greens X 2 days. Food list reviewed and pt will focus on foods that raise the INR X 2 days. Dose: increase this weeks dosage by 3.75mg then resume usual dose of 7.5mg X 5 days and 11.25mg X 2 days (Tues & Fri) F/U INR: 4 weeks Patient verbalizes understanding of instructions given Anti-Coag Initial Assessment Social Hx Patient Tobacco Use Status: Current everyday Tobacco user alcohol intake: never Coding Level of Care Code Est Patient Level 1 Diagnoses Current use of anticoagulant therapy Z79.01 Results AMB INR Fingerstick AMB INR Fingerstick 2.0 Last Edit by Shirley Wang RN on 08/11/24 10:02 interface delay Assessment & Plan Assessment & Plan (1) Current use of anticoagulant therapy: Code(s): Z79.01 - detention (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 Category: Medical
== END 2024-08-11 10:14 | disposition home or self-care (01) ==
LOC: HO.ACS 09:46
PROVIDERS: PCP Internal Medicine; Visit Provider Internal Medicine Medical Oncology
DX: Z79.01 Long term (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 (principal)

== ENCOUNTER → 2024-08-11 09:46 | Outpatient (BNVA) | payer MEDICARE, SELFPAY | PROVIDERS: PCP Internal Medicine; Visit Provider Internal Medicine Medical Oncology | DX: I48.20 Chronic atrial fibrillation, unspecified (principal); Z79.01 Long term (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; Z51.81 Encounter for therapeutic drug level monitoring | CPT/HCPCS: 85610; 99211 ==

== ENCOUNTER 2024-09-08 09:29 | Outpatient (AMB) | payer MEDICARE, SELFPAY ==
[2024-09-08 09:38] LABS: Prothrombin Time Whole Bld POC 25.7 sec (11.1-13.5); ~PT, ~INR - Anti Coag Clinic 2.1 (0.9-1.1)
--- NOTE | 2024-09-08 09:44 | MHC.OFFVISCO ---
Intake Intake Visit Reasons: Anticoagulation Allergies Seasonal Allergies Adverse Reaction (Mild, Verified 09/08/24 09:32) Nasal congestion Medication List - Last Reconciled 09/08/24 by Kate Dunlap RN atorvastatin 40 mg PO DAILY cholecalciferol (vitamin D3) 25 mcg PO DAILY levothyroxine 88 mcg PO DAILY metoprolol tartrate 50 mg PO BID nitroglycerin 0.3 mg sublingual Q5M PRN omega-3 fatty acids (Fish Oil Concentrate) 1,000 mg PO DAILY warfarin 7.5 mg See Protocol PO DAILY Nursing Note INR: 2.1 in therapeutic range- Pt enjoys summer seasonal foods that can raise the INR Medications and supplements reviewed No changes in health, diet, medications, or supplements, Denies any signs and symptoms of bleeding or bruising or clotting. Bleeding, bruising, clotting discussed Nutritional guidance given- ENJOY THE SUMMER SEASONAL FOODS TO HELP RAISE YOUR INR Dose: keep same dose for now 11.25mg x 2 days / 7.5mg x 5 days F/U INR: 1 month Patient verbalizes understanding of instructions given Anti-Coag Initial Assessment Social Hx Patient Tobacco Use Status: Current everyday Tobacco user alcohol intake: never Coding Level of Care Code Est Patient Level 1 Diagnoses Current use of anticoagulant therapy Z79.01 Assessment & Plan Assessment & Plan (1) Current use of anticoagulant therapy: Code(s): Z79.01 - correction (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 Category: Medical
--- OUTSIDE RECORDS SUMMARY | 2024-09-08 09:46 | XMS_ITS | Patient Health Record ---
Author Organization [facility] Address [address] [place] [address] Care Team Providers Care Data Analytics Developer Name Role Phone Onofre Sandy MD Primary Care Provider Shabbir Murray Jr Unavailable Allergies No Known Allergies Reason For Referral No Information Medications Medication [...] day(s) 06/28/2023 Active Fish Oil + D3 4228-2963 MG-UNIT 1 capsule Orally Three times a [...] Problem Status W/U Status Risk Notes Problem [id number] Colon cancer screening (Z12.11) Active confirmed Problem 918040038 Encounter for other preprocedural examination (Z01.818) Active confirmed Plan Of Treatment Future Test Test Name Order Date COLONOSCOPY 06/28/2023 Insurance Providers Payer Name Payer Address Payer Phone Subscriber Number Group Number Insured Name Patient Relationship to Insured Coverage Start Date Coverage End Date MEDICARE OF [place] [address] [place] [id number] [phone] [id number] LAN CANAS Self - patient is the insured Medical (General) History Medical History History ICD Code Coronary artery disease, history of [place] 2 012 Hodgkin's disease 1996 Paroxysmal atrial fibrillation Hypothyroidism Surgical History Surgery Date(Month/Year)
== END 2024-09-08 09:48 | disposition home or self-care (01) ==
LOC: HO.ACS 09:29
PROVIDERS: PCP Internal Medicine; Visit Provider Internal Medicine Medical Oncology
DX: Z79.01 Long term (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 (principal)

== ENCOUNTER → 2024-09-08 09:29 | Outpatient (BNVA) | payer MEDICARE, SELFPAY | PROVIDERS: PCP Internal Medicine; Visit Provider Internal Medicine Medical Oncology | DX: I48.20 Chronic atrial fibrillation, unspecified (principal); Z79.01 Long term (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; Z51.81 Encounter for therapeutic drug level monitoring | CPT/HCPCS: 85610; 99211 ==

== ENCOUNTER 2024-10-06 09:42 | Outpatient (AMB) | payer MEDICARE, SELFPAY ==
--- OUTSIDE RECORDS SUMMARY | 2023-04-08 09:15 | XMS_ITS ---
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 Name Role Phone Du (RETIRED) , Onofre Primary Care Provide r Lynne Do Jr, Shabbir Batista [phone] REASON FOR VISIT Patient presents today for a discuss colonoscopy Encounters Encounter Location Date Provider Diagnosis [facility] [address] [id number] 04/08/2023 Shabbir Do Jr Plan Of Treatment No Information Progress Notes * LAN CANAS GDOB:[birth year] (74 yo M)Acc No.[id number]:04/08/2023 Progress Notes Patient: LAN ARIAS Provider: Misael Do MD :1950 A ge:72 Y S ex:Male Date:04/08/2023 Address:[address] [place], [place] [id number] Pcp:Onofre Sandy (RETIRED )MD Subjective: * Chief Complaints: * 1 . Patient presents today for a discuss colonoscopy. * Medical History: Objective: * Vitals: Assessment: Plan: * Treatment: * * The named appointment provid er may or may not be the originator of this progress note, and it is not deemed complete until electronically signed by the appointment provider. Sign off status: Pending * Provider: Misael Do MD Date: 0 04/08/2023 Generated for Printi luis/Fakirkg/eTransmitting on: 0 10/06/2024 09:50 AM EDT
--- NOTE | 2024-10-06 10:01 | MHC.OFFVISCO ---
Intake Intake Visit Reasons: Anticoagulation Allergies Seasonal Allergies Adverse Reaction (Mild, Verified 10/06/24 09:49) Nasal congestion Medication List - Last Reconciled 10/06/24 by Kate Dunlap RN atorvastatin 40 mg PO DAILY cholecalciferol (vitamin D3) 25 mcg PO DAILY levothyroxine 88 mcg PO DAILY metoprolol tartrate 50 mg PO BID nitroglycerin 0.3 mg sublingual Q5M PRN omega-3 fatty acids (Fish Oil Concentrate) 1,000 mg PO DAILY warfarin See Protocol 11.25mg x 2 days/ 7.5mg x 5days , take 1-2 tabs daily per INR per Anticoagulation Services Nursing Note INR 1.8 out of therapeutic range- Missed 3 doses of warfarin waiting for refill Medications and supplements reviewed Patient status: no changes no complaints Medications or supplements: no changes Diet: good Denies any signs and symptoms of bleeding or clotting or unusual bruising Bleeding, bruising, clotting discussed Nutritional guidance given: avoid greens today and tomorrow - eat orange and reds to help raise the INR Dose: booster dose this week 11.25mg x 3days then resume usual dose 11.25mg x 2 days/ 7.5mg x 5 days F/U INR Date : 2 weeks then when stable resume q 4 weeks ?? Patient verbalizing understanding of instructions given. 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
[2024-10-06 10:16] LABS: Prothrombin Time Whole Bld POC 22.1 sec (11.1-13.5); ~PT, ~INR - Anti Coag Clinic 1.8 (0.9-1.1)
== END 2024-10-06 10:04 | disposition home or self-care (01) ==
LOC: HO.ACS 09:42
PROVIDERS: PCP Internal Medicine; Visit Provider Internal Medicine Medical Oncology
DX: Z79.01 Long term (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 (principal)

== ENCOUNTER → 2024-10-06 09:42 | Outpatient (BNVA) | payer MEDICARE, SELFPAY | PROVIDERS: PCP Internal Medicine; Visit Provider Internal Medicine Medical Oncology | DX: I48.20 Chronic atrial fibrillation, unspecified (principal); Z79.01 Long term (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; Z51.81 Encounter for therapeutic drug level monitoring | CPT/HCPCS: 85610; 99211 ==

== ENCOUNTER 2024-10-23 09:05 | Outpatient (AMB) | payer MEDICARE, SELFPAY ==
--- OUTSIDE RECORDS SUMMARY | 2024-10-23 09:31 | XMS_ITS | Patient Health Record ---
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 Phone Du (RETIRED) Onofre ESCALANTE Primary Care Provide r Shabbir Haji Jr Unavailable [phone] Allergies No Known Allergies Reason For Referral [...] day(s) 06/28/2023 Active Fish Oil + D3 5940-5622 MG-UNIT 1 capsule Orally Three times a [...] Problem Status W/U Status Risk Notes Problem [id number] Colon cancer screening (Z12.11) Active confirmed Problem [id number] Encounter for other preprocedural examination (Z01.818) Active confirmed Plan Of Treatment Future Test Test Name Order Date COLONOSCOPY 06/28/2023 Insurance Providers Payer Name Payer Address Payer Phone Subscriber Number Group Number Insured Name Patient Relationship to Insured Coverage Start Date Coverage End Date MED[place]ARE OF [place] [address] [place] [id number] LAN CANAS Self - patient is the insured Medical (General) History Medical History History ICD Code Coronary artery disease, history of [place] 2 012 Hodgkin's disease 1996 Paroxysmal atrial fibrillation Hypothyroidism Surgical History Surgery Date(Month/Year)
--- NOTE | 2024-10-23 09:37 | MHC.OFFVISCO ---
Intake Intake Visit Reasons: Anticoagulation Allergies Seasonal Allergies Adverse Reaction (Mild, Verified 10/23/24 09:29) Nasal congestion Medication List - Last Reconciled 10/23/24 by Kate Dunlap RN atorvastatin 40 mg PO DAILY cholecalciferol (vitamin D3) 25 mcg PO DAILY levothyroxine 88 mcg PO DAILY metoprolol tartrate 50 mg PO BID nitroglycerin 0.3 mg sublingual Q5M PRN omega-3 fatty acids (Fish Oil Concentrate) 1,000 mg PO DAILY warfarin See Protocol 11.25mg x 2 days/ 7.5mg x 5days , take 1-2 tabs daily per INR per Anticoagulation Services Nursing Note INR 3.6?? out of therapeutic range Medications and supplements reviewed Patient status: previous INR was low due to missed doses waiting refill - he avoided greens Medications or supplements: no changes Diet: good appetite Denies any signs and symptoms of bleeding or clotting or unusual bruising Bleeding, bruising, clotting discussed Nutritional guidance given: resume weekly greens Dose: 3.75mg today then resume usual dose 11.25mg x 2 days/ 7.5mg x 5 days F/U INR Date: 2 weeks - if INR stable resume monthly ?? Patient verbalizing understanding of instructions given. Anti-Coag Initial Assessment Social Hx Patient Tobacco Use Status: Current everyday Tobacco user alcohol intake: never Coding Level of Care Code Est Patient Level 1 Diagnoses Current use of anticoagulant therapy Z79.01 Results AMB INR Fingerstick AMB INR Fingerstick 3.6 Last Edit by Kate Dunlap RN on 10/23/24 09:37 manual entry Assessment & Plan Assessment & Plan (1) Current use of anticoagulant therapy: Code(s): Z79.01 - jail (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 Category: Medical
[2024-10-23 09:44] LABS: Prothrombin Time Whole Bld POC 42.6 sec (11.1-13.5); ~PT, ~INR - Anti Coag Clinic 3.6 (0.9-1.1)
== END 2024-10-23 09:48 | disposition home or self-care (01) ==
LOC: HO.ACS 09:05
PROVIDERS: PCP Internal Medicine; Visit Provider Internal Medicine Medical Oncology
DX: Z79.01 Long term (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 (principal)

== ENCOUNTER → 2024-10-23 09:05 | Outpatient (BNVA) | payer MEDICARE, SELFPAY | PROVIDERS: PCP Internal Medicine; Visit Provider Internal Medicine Medical Oncology | DX: Z51.81 Encounter for therapeutic drug level monitoring (principal); Z79.01 Long term (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 | CPT/HCPCS: 85610; 99211 ==

== ENCOUNTER 2024-11-02 10:26 | Outpatient (AMB) | payer MEDICARE, SELFPAY ==
[2024-11-02 10:46] VITALS: BP 128/68; PULSE 61; BMI 32.6
--- NOTE | 2024-11-02 10:46 | A.OFFVIS_ITS ---
Vital Signs 11/02/24 10:46 Height 5 ft 10 in Weight 227 lb 1.218 oz BMI 32.6 BP 128/68 Blood Pressure Location Lt brachial Position Sitting Pulse 61 Pulse Source Monitor Intake Visit Reasons: 1 year f/up Allergies Seasonal Allergies Adverse Reaction (Mild, Verified 10/23/24 09:29) Nasal congestion Medication List - Last Reconciled 11/02/24 by Jayro Mendez MD atorvastatin 40 mg PO DAILY cholecalciferol (vitamin D3) 25 mcg PO DAILY levothyroxine 88 mcg PO DAILY metoprolol tartrate 50 mg PO BID nitroglycerin 0.3 mg sublingual Q5M PRN omega-3 fatty acids (Fish Oil Concentrate) 1,000 mg PO DAILY warfarin See Protocol 11.25mg x 2 days/ 7.5mg x 5days , take 1-2 tabs daily per INR per Anticoagulation Services HPI Comments Details: Evaristo returns for follow-up regarding coronary disease. Overall, he feels good. No cardiac symptoms whatsoever. [facility]LY [facility] Medical History Hodgkins disease Essential hypertension Hemorrhoids with complication Other and unspecified hyperlipidemia PAF (paroxysmal atrial fibrillation) Atherosclerotic cardiovascular disease Surgical History H/O colonoscopy (~08/27/23) History of cardiac catheterization (~12/2011) Family History Father Hodgkin lymphoma Mother No problems noted. Social History Housing: House Alcohol intake: never Patient Tobacco Use Status: Current everyday Tobacco user Cigarettes Per Day: 8 e-Cigarette/Vaping Use: Currently Using service: Yes Current occupational status: retired Cognitive needs: No Hearing needs: Yes (Bilateral) Vision needs: Yes (Rx glasses) Review of Systems Const Denies weakness ENT Denies dizziness Card Denies chest pain, Denies chest pain with activity, Denies syncope, Denies rapid heart rate, Denies pedal edema, Denies edema, Denies leg edema, Denies lightheadedness, Denies palpitations, Denies dyspnea, Denies dyspnea on exertion and Denies orthopnea Resp Denies cough, Denies dyspnea and Denies dyspnea on exertion GI Denies hematochezia and Denies change in stool character Musc Denies abnormal gait, Denies muscle cramps, Denies muscle weakness, Denies numbness, Denies radiating pain into limb and Denies tingling Neuro Denies abnormal gait, Denies dizziness, Denies syncope, Denies numbness, Denies tingling and Denies weakness Endo Denies palpitations Physical Exam Vital Signs: Last Vital Signs Pulse 61 11/02/24 10:46 BP 128/68 11/02/24 10:46 BMI result Body Mass Index 32.6 Const General: comfortable and no acute distress Orientation/consciousness: patient oriented x3 HEENT Other: Unremarkable Head: Yes normal to inspection Neck Neck: Yes normal visual inspection Chest Chest palpation & inspection: normal inspection of the chest Resp Auscultation: clear to auscultation bilaterally Cardio Palpation: normal PMI Heart sounds: S1 normal heart sound present, S2 normal heart sound present, no gallops, no murmurs and no rubs GI Palpation (GI): Soft to palpation Back/Spine/Pelvis Other: unremarkable Skin General skin exam: no rashes or lesions noted Neuro General: patient oriented x3 Extrem General: Yes normal to inspection Psych Mental Status: mental status grossly normal Office Procedures EKG Details: EKG with underlying sinus rhythm at 61/Min; incomplete right bundle-branch block pattern; mild IN prolongation to 204 milliseconds; [place]. [id number], Complete Assessment & Plan Assessment & Plan (1) Atherosclerotic cardiovascular disease: Code(s): I25.10 - Atherosclerotic heart disease of [place] coronary artery without angina pectoris Category: Medical Plan: Previous cardiac studies reviewed. [id number] 60-65%, mild mitral regurgitation. Myocardial perfusion imaging [id number] perfusion defect with reversible and fixed components in basal inferior wall. Cardiac [id number] RCA 100% stenosis, status post bare metal stent; no significant disease in the left system. Clinically, no symptoms whatsoever. Continue current medications. (2) PAF (paroxysmal atrial fibrillation): Code(s): I48.0 - Paroxysmal atrial fibrillation Category: Medical Plan: No recent issues. Continue beta-blockers. Continue anticoagulation. (3) Essential hypertension: Code(s): I10 - Essential (primary) hypertension Category: Medical Plan: Stable. (4) Other and unspecified hyperlipidemia: Code(s): E78.5 - Hyperlipidemia, unspecified Category: Medical Plan: On statins. Last available LDL 45 mg/dL. Plan Discussion Notes I discussed with the patient the importance of continuing his current medication regimen without changes, as his conditions are stable. We talked about the need for regular monitoring of atrial fibrillation symptoms and the importance of maintaining follow-up appointments. Patient was informed and verbally consented to the use of an ambient scribe for clinic note documentation during this visit. Patient Instructions: - Continue taking your medications as prescribed. - Monitor for any cardiac symptoms and report them promptly. - Engage in regular physical activity. - Schedule your next follow-up appointment in one year. Coding Level of Care Code Est Pt Level 4 (30803) Complex EM visit Add On G2211 Diagnoses Atherosclerotic cardiovascular disease I25.10 PAF (paroxysmal atrial fibrillation) I48.0 Essential hypertension I10 Other and unspecified hyperlipidemia E78.5 CPT Codes EKG - CPT: [id number], Complete ([id number])
== END 2024-11-02 11:46 | disposition home or self-care (01) ==
LOC: HO.HCS 10:32
PROVIDERS: PCP Internal Medicine; Visit Provider Internal Medicine
DX: I25.10 Atherosclerotic heart disease of native coronary artery without angina pectoris (principal); I48.0 Paroxysmal atrial fibrillation; I10 Essential (primary) hypertension; E78.5 Hyperlipidemia, unspecified
CPT/HCPCS: 93010; 99214; G2211

== ENCOUNTER → 2024-11-02 10:26 | Outpatient (BNVA) | payer MEDICARE, SELFPAY | PROVIDERS: PCP Internal Medicine; Visit Provider Internal Medicine | DX: I48.0 Paroxysmal atrial fibrillation (principal); I25.10 Atherosclerotic heart disease of native coronary artery without angina pectoris; I10 Essential (primary) hypertension; E78.5 Hyperlipidemia, unspecified; F17.210 Nicotine dependence, cigarettes, uncomplicated | CPT/HCPCS: 93005; 99212 ==

== ENCOUNTER 2024-11-08 08:35 | Outpatient (AMB) | payer MEDICARE, SELFPAY ==
[2024-11-08 08:44] LABS: Prothrombin Time Whole Bld POC 27.6 sec (11.1-13.5); ~PT, ~INR - Anti Coag Clinic 2.3 (0.9-1.1)
--- NOTE | 2024-11-08 08:51 | MHC.OFFVISCO ---
Intake Intake Visit Reasons: Anticoagulation Allergies Seasonal Allergies Adverse Reaction (Mild, Verified 11/08/24 08:37) Nasal congestion Medication List - Last Reconciled 11/08/24 by Flakita Miner RN atorvastatin 40 mg PO DAILY cholecalciferol (vitamin D3) 25 mcg PO DAILY levothyroxine 88 mcg PO DAILY metoprolol tartrate 50 mg PO BID nitroglycerin 0.3 mg sublingual Q5M PRN omega-3 fatty acids (Fish Oil Concentrate) 1,000 mg PO DAILY warfarin See Protocol 11.25mg x 2 days/ 7.5mg x 5days , take 1-2 tabs daily per INR per Anticoagulation Services Nursing Note NO CP,SOB,DIET/MED CHANGES,FALLS OR SX OF BLEEDING. 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
--- OUTSIDE RECORDS SUMMARY | 2024-11-08 09:16 | XMS_ITS | Patient Health Record ---
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 Name Role Phone Du (RETIRED) Onofre ESCALANTE Primary Care Provide r Shabbir Haji Jr Unavailable Allergies No Known Allergies Reason [...] day(s) 06/28/2023 Active Fish Oil + D3 9341-2840 MG-UNIT 1 capsule Orally Three times a [...] Problem Status W/U Status Risk Notes Problem [id number] Colon cancer screening (Z12.11) Active confirmed Problem [id number] Encounter for other preprocedural examination (Z01.818) Active confirmed Plan Of Treatment Future Test Test Name Order Date COLONOSCOPY 06/28/2023 Insurance Providers Payer Name Payer Address Payer Phone Subscriber Number Group Number Insured Name Patient Relationship to Insured Coverage Start Date Coverage End Date MEDICARE OF [place] [address] [place] [id number] LAN CANAS Self - patient is the insured Medical (General) History Medical History History ICD Code Coronary artery disease, history of [place] 2 012 Hodgkin's disease 1996 Paroxysmal atrial fibrillation Hypothyroidism Surgical History Surgery Date(Month/Year)
== END 2024-11-08 08:53 | disposition home or self-care (01) ==
LOC: HO.ACS 08:35
PROVIDERS: PCP Internal Medicine; Visit Provider Internal Medicine Medical Oncology
DX: Z79.01 Long term (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 (principal)

== ENCOUNTER → 2024-11-08 08:35 | Outpatient (BNVA) | payer MEDICARE, SELFPAY | PROVIDERS: PCP Internal Medicine; Visit Provider Internal Medicine Medical Oncology | DX: Z51.81 Encounter for therapeutic drug level monitoring (principal); Z79.01 Long term (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 | CPT/HCPCS: 85610; 99211 ==

== ENCOUNTER 2024-12-08 08:52 | Outpatient (AMB) | payer MEDICARE, SELFPAY ==
[2024-12-08 08:58] LABS: Prothrombin Time Whole Bld POC 29.3 sec (11.1-13.5); ~PT, ~INR - Anti Coag Clinic 2.4 (0.9-1.1)
--- NOTE | 2024-12-08 09:00 | MHC.OFFVISCO ---
Intake Intake Visit Reasons: Anticoagulation Allergies Seasonal Allergies Adverse Reaction (Mild, Verified 12/08/24 08:54) Nasal congestion Medication List - Last Reconciled 12/08/24 by Shirley Wang RN atorvastatin 40 mg PO DAILY cholecalciferol (vitamin D3) 25 mcg PO DAILY levothyroxine 88 mcg PO DAILY metoprolol tartrate 50 mg PO BID nitroglycerin 0.3 mg sublingual Q5M PRN omega-3 fatty acids (Fish Oil Concentrate) 1,000 mg PO DAILY warfarin See Protocol 11.25mg x 2 days/ 7.5mg x 5days , take 1-2 tabs daily per INR per Anticoagulation Services Nursing Note INR: 2.3 in therapeutic range 2-3 Medications and supplements reviewed No changes in health, diet, medications, or supplements, Denies any signs and symptoms of bleeding or bruising or clotting. Bleeding, bruising, clotting discussed Nutritional guidance given Dose: 7.5mg X 5 days and 11.25mg X 2 days (Tues & Fri) F/U INR: 4 weeks Patient verbalizes understanding of instructions given Anti-Coag Initial Assessment Social Hx Patient Tobacco Use Status: Current everyday Tobacco user alcohol intake: never Coding Level of Care Code Est Patient Level 1 Diagnoses Current use of anticoagulant therapy Z79.01 Assessment & Plan Assessment & Plan (1) Current use of anticoagulant therapy: Code(s): Z79.01 - watermaster (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 Category: Medical
== END 2024-12-08 09:04 | disposition home or self-care (01) ==
LOC: HO.ACS 08:52
PROVIDERS: PCP Internal Medicine; Visit Provider Internal Medicine Medical Oncology
DX: Z79.01 Long term (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 (principal)

== ENCOUNTER → 2024-12-08 08:52 | Outpatient (BNVA) | payer MEDICARE, SELFPAY | PROVIDERS: PCP Internal Medicine; Visit Provider Internal Medicine Medical Oncology | DX: Z51.81 Encounter for therapeutic drug level monitoring (principal); Z79.01 Long term (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 | CPT/HCPCS: 85610; 99211 ==

== ENCOUNTER 2025-01-12 09:42 | Outpatient (AMB) | payer MEDICARE, SELFPAY ==
--- OUTSIDE RECORDS SUMMARY | 2023-08-27 04:30 | XMS_ITS ---
Author Organization [facility] Address [address] [place] [phone] Care Team Providers Care Community Health Education Coordinator Name Role Phone Du (RETIRED) Onofre ESCALANTE Primary Care Provide r Shabbir Haji Jr REASON FOR VISIT screening colon Encounters Encounter Location Date Provider Diagnosis [facility] Outpatient [address] [place] [phone] 08/27/2023 Shabbir Do Jr Encounter for screening colonoscopy Z12.11 and Colon polyps K63.5 Assessments Encounter Date Diagnosis (ICD Code) Assessment Notes Treatment Notes Treatment Clinical Notes Section Notes 08/27/2023 Encounter for screening colonoscopy (ICD-10 - Z12.11) 08/27/2023 Colon polyps (ICD-10 - K63.5) Plan Of Treatment No Information Progress Notes * LAN CANAS GDOB:[birth year] (74 yo M)Acc No.[id number]:08/27/2023 COLON WITH MAC Patient: LAN ARIAS Provider: Misael Do MD :1950 A ge:72 Y S ex:Male Date:08/27/2023 Address:[address] [place], [place] [phone] Pcp:Onofre Sandy (RETIRED )MD Subjective: * Chief Complaints: * 1 . Screening colon. * Medical History: Objective: * Vitals: Assessment: * Assessment: 1. E ncounter for screening colonoscopy - Z12.11 (Primary) 2 . C olon polyps - K63.5 Plan: * Treatment: * Procedure Codes: 4 5380 COLONOSCOPY AND BIOPSY, 0529F INTRVL 3+YRS PTS CLNSCP DOCD * * The named appointment provid er may or may not be the originator of this progress note, and it is not deemed complete until electronically signed by the appointment provider. Sign off status: Pending * Provider: Misael Do MD Date: 0 08/27/2023 Generated for Clem smith/Sandra/Azizaitting on: 1 10:46 AM EDT
[2025-01-12 09:56] LABS: Prothrombin Time Whole Bld POC 22.9 sec (11.1-13.5); ~PT, ~INR - Anti Coag Clinic 1.9 (0.9-1.1)
--- NOTE | 2025-01-12 10:03 | MHC.OFFVISCO ---
Intake Intake Visit Reasons: Anticoagulation Allergies Seasonal Allergies Adverse Reaction (Mild, Verified 01/12/25 09:49) Nasal congestion Medication List - Last Reconciled 01/12/25 by Kate Dunlap RN atorvastatin 40 mg PO DAILY cholecalciferol (vitamin D3) 25 mcg PO DAILY levothyroxine 88 mcg PO DAILY metoprolol tartrate 50 mg PO BID nitroglycerin 0.3 mg sublingual Q5M PRN omega-3 fatty acids (Fish Oil Concentrate) 1,000 mg PO DAILY warfarin See Protocol 11.25mg x 2 days/ 7.5mg x 5days , take 1-2 tabs daily per INR per Anticoagulation Services Nursing Note INR: 1.9 just out of therapeutic range- he is s/p cold/virus x 1 week Stated he drank a lot of OJ to help fight cold Medications and supplements reviewed No changes in health, medications, or supplements, Denies any signs and symptoms of bleeding or bruising or clotting. Bleeding, bruising, clotting discussed Nutritional guidance given - pt states he will eat cranberry and turnip today to help raise the INR Dose: keep same 11.25mg tue and fri/ 7.5mg x 5 days F/U INR: 4 weeks per pt request Patient verbalizes understanding of instructions given Anti-Coag Initial Assessment Social Hx Patient Tobacco Use Status: Current everyday Tobacco user alcohol intake: never Coding Level of Care Code Est Patient Level 1 Diagnoses Current use of anticoagulant therapy Z79.01 Results AMB INR Fingerstick AMB INR Fingerstick 1.9 Last Edit by Kate Dunlap RN on 01/12/25 09:56 manual entry Assessment & Plan Assessment & Plan (1) Current use of anticoagulant therapy: Code(s): Z79.01 - emt intermediate (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 Category: Medical
--- OUTSIDE RECORDS SUMMARY | 2025-01-12 10:46 | XMS_ITS | Patient Health Record ---
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 Name Role Phone Du (RETIRED) Onofre ESCALANTE Primary Care Provide r Shabbir Haji Jr Unavailable Allergies No Known Allergies Reason For Referral No Information Medications Medication SIG (Take, Route, Frequency, Duration) Notes Start Date End Date Status Levothyroxine Sodium 88 MCG Oral; Duration: 90 Active Atorvastatin Calcium 40 MG Oral; Duration: 90 Active Metoprolol Tartrate 50 MG TAKE 1 TABLET BY MOUTH TWICE A DAY Oral; Duration: 90 Active Warfarin Sodium 7.5 MG TAKE 1 TABLET BY MOUTH EVERY DAY DIRECTED Oral; Duration: 90 Active Vitamin D (Cholecalciferol) 25 MCG (1000 UT) 1 capsule Orally Once a day; Duration: 30 day(s) 06/28/2023 Active Fish Oil + D3 7696-6694 MG-UNIT 1 capsule Orally Three times a day; Duration: 30 day(s) 06/28/2023 Active Immunizations Vaccine Route [...] Problem Status W/U Status Risk Notes Problem Information temporarily unavailable Colon cancer screening (Z12.11) Active confirmed Problem Information temporarily unavailable Encounter for other preprocedural examination (Z01.818) Active confirmed Plan Of Treatment Future Test Test Name Order Date COLONOSCOPY 06/28/2023 Insurance Providers Payer Name Payer Address Payer Phone Subscriber Number Group Number Insured Name Patient Relationship to Insured Coverage Start Date Coverage End Date MEDICARE OF [place] [address] [place] [id number] [phone] [id number] [employer] Self - patient is the insured Medical (General) History Medical History History ICD Code Coronary artery disease, history of [place] 2 012 Hodgkin's disease 1996 Paroxysmal atrial fibrillation Hypothyroidism Surgical History Surgery Date(Month/Year)
== END 2025-01-12 10:06 | disposition home or self-care (01) ==
LOC: HO.ACS 09:42
PROVIDERS: PCP Internal Medicine; Visit Provider Internal Medicine Medical Oncology
DX: Z79.01 Long term (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 (principal)

== ENCOUNTER → 2025-01-12 09:42 | Outpatient (BNVA) | payer MEDICARE, SELFPAY | PROVIDERS: PCP Internal Medicine; Visit Provider Internal Medicine Medical Oncology | DX: I48.20 Chronic atrial fibrillation, unspecified (principal); Z51.81 Encounter for therapeutic drug level monitoring; Z79.01 Long term (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 | CPT/HCPCS: 85610; 99211 ==

== ENCOUNTER 2025-02-13 15:48 | Outpatient (AMB) | payer MEDICARE, SELFPAY ==
--- OUTSIDE RECORDS SUMMARY | 2023-08-27 03:30 | XMS_ITS ---
Author Organization [facility] Address [address] [place] [id number] Care Team Providers Care Philosophy Instructor Name Role Phone Du (RETIRED) , Onofre Primary Care Provide r Lynne Do Jr, Shabbir Batista REASON FOR VISIT screening colon Encounters Encounter Location Date Provider Diagnosis [facility] Outpatient [address], [place] [id number] 08/27/2023 Shabbir Do Jr Encounter for screening colonoscopy Z12.11 and Colon polyps K63.5 Assessments Encounter Date Diagnosis (ICD Code) Assessment Notes Treatment Notes Treatment Clinical Notes Section Notes 08/27/2023 Encounter for screening colonoscopy (ICD-10 - Z12.11) 08/27/2023 Colon polyps (ICD-10 - K63.5) Plan Of Treatment No Information Progress Notes * LAN CANAS GDOB:[birth year] (74 yo M)Acc No.[id number]:08/27/2023 COLON WITH MAC Patient: LAN ARIAS Provider: Misael Do MD :1950 A ge:72 Y S ex:Male Date:08/27/2023 Address:[address] [place], [place] [id number] Pcp:Onofre Sandy (RETIRED )MD Subjective: * Chief Complaints: * S creening colon Assessment: * Assessment: 1. E ncounter for screening colonoscopy - Z12.11 (Primary) 2 . C olon polyps - K63.5 Plan: * Procedure Codes: 4 5380 COLONOSCOPY AND [id number] INTRVL 3+YRS PTS CLNSCP DOCD Billing Information: * Procedure Codes: 15067 COLONOSCOPY AND BIOPSY. 0529F INTRVL 3+YRS PTS CLNSCP DOCD. * The named appointment provid er may or may not be the originator of this progress note, and it is not deemed complete until electronically signed by the appointment provider. Sign off status: Pending * Provider: Misael Do MD Date: 0 08/27/2023 Generated for Clem smith/Sandra/Azizaitting on: 04/15/2024 07:18 PM EST
[2025-02-13 15:49] VITALS: BP 130/80; PULSE 68; RESP 16; TEMP 36; O2SAT 96; BMI 33.9
--- NOTE | 2025-02-13 15:49 | A.OFFPC_ITS ---
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: No Accompanied by: Self / Same As Patient Allergies Seasonal Allergies Adverse Reaction (Mild, Verified 02/13/25 15:50) Nasal congestion Medication List - Last Reconciled 02/13/25 by Neptali Dalton MD atorvastatin 40 mg PO DAILY cholecalciferol (vitamin D3) 25 mcg PO DAILY levothyroxine 88 mcg PO DAILY metoprolol tartrate 50 mg PO BID nitroglycerin 0.3 mg sublingual Q5M PRN omega-3 fatty acids (Fish Oil Concentrate) 1,000 mg PO BID warfarin See Protocol 11.25mg x 2 days/ 7.5mg x 5days , take 1-2 tabs daily per INR per Anticoagulation Services Tobacco use date assessed: 02/13/25 Last assessed Fall Risk: 02/13/25 Dental Screening Dental Screen Date: 07/28/24 HPI HPI Comments History of Present Illness Details History of Present Illness The patient is a 74 year old individual presenting with an annual physical examination and follow-up. The patient has a history of atrial fibrillation managed with warfarin and metoprolol tartrate 50 mg twice daily. Warfarin dosing is 1.5 pills on Tuesdays and Fridays and 1 pill on other days, managed by a warfarin clinic. Other chronic conditions include hypothyroidism, treated with levothyroxine 88 mcg, with a TSH of 1.86 in March, and hypercholesterolemia, treated with atorvastatin 40 mg, with an LDL of 45. The patient is prediabetic with a hemoglobin A1c of 5.8. The patient has a smoking history and currently smokes half a pack a day. The patient is good on colonoscopy screenings and undergoes annual lung cancer screening with a [facility], with the next scan scheduled for tomorrow. The patient has not yet received the flu shot for the season. The patient is a [employer] who served in [employer] from 1967 to 1970. Medical History: - Atrial fibrillation - Hypothyroidism - Hypercholesterolemia - Prediabetes - Tobacco use disorder: Smokes about deepika f a pack per day. Medications: - Warfarin 5 mg: for atrial fibrillation , one and a half pills on Wednesday and Wednesday, one pill on other days. - Metoprolol tartrate 50 mg twice a day: for atrial fibrillation and blood pressure. - Levothyroxine 88 mcg: for hypothyroidi sm. - Atorvastatin 40 mg: for hypercholester olemia. - Vitamin D - [place]-3 Diagnostic Results: - Labs: - TSH: 1.86 as of March. - LDL cholesterol: 45. - Overall cholesterol: Under 180. - A1c: 5.8. - Tests and Diagnostics: - Colonoscopy: Up to date. - Lung cancer screening: Receives an [facility] scan [facility]. Social History - Substance Use: The patient smokes abou t half a pack of cigarettes a day and is reluctant to use nicotine patches for cessation, but is looking into a [facility] program. - History: The patient is a [employer] who served in [employer] from [place] to 1970. - Level of Activity: Advised to stay act moni and keep walking. - Diet: Advised to watch diet due to pre diabetes. [facility]LY [facility] Medical History (Updated 02/13/25 @ 16:05 by Neptali Dalton MD) Tobacco use disorder, continuous Annual physical exam Hypothyroidism Hodgkins disease Essential hypertension Hemorrhoids with complication Other and unspecified hyperlipidemia PAF (paroxysmal atrial fibrillation) Atherosclerotic cardiovascular disease Surgical History H/O colonoscopy (~08/27/23) History of cardiac catheterization (~12/2011) Family History Father Hodgkin lymphoma Mother No problems noted. Social History Housing: House Alcohol intake: never Patient Tobacco Use Status: Current everyday Tobacco user Cigarettes Per Day: 10 e-Cigarette/Vaping Use: Never Used service: Yes Current occupational status: retired Cognitive needs: No Hearing needs: Yes (Bilateral) Vision needs: Yes (Rx glasses) Questionnaire PHQ-9 Over the last 2 weeks, how often have you been bothered by any of the following problems? 1. Little interest or pleasure in doing things: not at all 2. Feeling down, depressed, or hopeless: not at all 3. Trouble falling or staying asleep, or sleeping too much: not at all 4. Feeling tired or having little energy: not at all 5. Poor appetite or overeating: not at all 6. Feeling bad about yourself - or that you are a failure or have let yourself or your family down: not at all 7. Trouble concentrating on things, such as reading the newspaper or watching television: not at all 8. Moving or speaking so slowly that other people could have noticed. Or the opposite - being so fidgety or restless that you have been moving around a lot more than usual: not at all 9. Thoughts that you would be better off or of hurting yourself in some way: not at all Total score: 0 Depression Screening Interpretation: Negative Depression Screening Done: Yes 48329 - PHQ-9 Billing: Yes Source: Developed by Drs. Wally Whalen, Kayla De, Lamberto Murrell and colleagues, with an educational lisy from [employer]. Thrive Questionnaire Date Thrive assessed: 02/13/25 I am a: Patient What is your living situation today?: I have a steady place to live Within the past 12 months, did the food you bought not last and you didn't have the money to get more?: Never true Within the past 12 months, did you worry whether your food would run out before you got money to buy more?: Never true Do you have trouble paying for medicines?: No Do you have trouble getting transportation to medical appointments?: No Do you have trouble paying your heating and electricity bill?: No Do you have trouble taking care of your child, family member or friend?: No Do you have trouble with day-to-day activities such as bathing, preparing meals, shopping, managing finances, etc.?: No Are you currently unemployed and looking for a job?: No Are you interested in more education?: No THRIVE Score: 0 AUDIT C Alcohol Use Questionnaire (AUDIT-C) 1. How often do you have a drink containing alcohol?: Never 3. How often do you have six or more drinks on one occasion?: Never Total Score: 0 GERONIMO-7 AMB Questionnaire GERONIMO-7 Date GERONIMO - 7 assessed: 02/13/25 Feeling nervous, anxious, or on edge: 0 = Not at all Not being able to stop or control worryin = Not at all Worrying too much about different things: 0 = Not at all Trouble relaxin = Not at all Being so restless that it is hard to sit still: 0 = Not at all Becoming easily annoyed or irritable: 0 = Not at all Feeling afraid as if something awful might happen: 0 = Not at all Total GERONIMO-7 score (0-4 normal; 5-9 mild; 10-14 moderate; 15-21 severe): 0 Source: Developed by Drs. Wally Whalen, Kayla De, Lamberto Murrell and colleagues, with an educational lisy from [employer]. GERONIMO-7 Assessment Billing GERONIMO-7 Assessment Tool: GERONIMO-7 Assessment 01143 Review of Systems Narrative Review of Systems - Constitutional: Denies nausea and vomiting. - Cardiovascular: Denies chest pain. - Respiratory: Denies shortness of breath. - Neurological: Denies headaches. - Eyes: Denies vision changes. All systems reviewed & are unremarkable except as reviewed in HPI and above Physical exam (Primary Care) Vital Signs: Last Vital Signs Temp 96.8 F 02/13/25 15:49 Pulse 68 02/13/25 15:49 Resp 16 02/13/25 15:49 BP 130/80 02/13/25 15:49 Pulse Ox 96 02/13/25 15:49 Oxygen Delivery Method Room Air 02/13/25 15:49 BMI result Body Mass Index 33.9 Tobacco/Smoking Status: Tobacco use Status Tobacco use date assessed 02/13/25 02/13/25 15:54 Patient Tobacco Use Status Current everyday Tobacco 02/13/25 15:54 e-Cigarette/Vaping Use Never Used 02/13/25 15:54 PHQ-9: PHQ-9 Score PHQ-9: Total score 0 02/13/25 16:02 Depression Screening Interpretation: Negative Thrive Assessment: Date of Thrive Assessment Date Thrive assessed 02/13/25 02/13/25 15:54 Narrative Physical Exam General: +Alert and oriented, Well nourished, No acute distress. Eye: Pupils are equal, round and reactive to light, Intact accommodation, Extraocular movements are intact, Normal conjunctiva, Vision unchanged. HENT: Normocephalic, Atraumatic, Tympanic membranes are clear, Normal hearing, Oral mucosa is moist, No pharyngeal erythema, Ear canals patent. Respiratory: Lungs CTA bilaterally, No wheeze, Respirations are non-labored. Cardiovascular: Regular rate, Regular rhythm, S1 auscultated, S2 auscultated, No murmur, Good pulses equal in all extremities, Normal peripheral perfusion, No edema. Gastrointestinal: Soft, Non-tender, Non-distended, Normal bowel sounds, No organomegaly. Musculoskeletal: Normal range of motion, Normal strength, No tenderness, No swelling, No deformity, Normal gait. Integumentary: Warm, Dry, Liborio Negron Torres, Intact. Neurologic: Alert, Oriented, Normal sensory, Normal motor function, No focal defects, Cranial Nerves II-XII are grossly intact, Normal deep tendon reflexes. Psychiatric: Cooperative, Appropriate mood & affect, Normal judgment. Coding Level of Care Code Est Pt Level 4 (48187) Est Pt Prev Care >65y(51107) Diagnoses Essential hypertension I10 PAF (paroxysmal atrial fibrillation) I48.0 Prediabetes R73.03 Other specified hypothyroidism E03.8 Hypothyroidism type: other Tobacco use disorder, continuous F17.209 Annual physical exam Z00.00 Additional Codes GERONIMO-7 Assessment Billing - GERONIMO-7 Assessment Tool: GERONIMO-7 Assessment 55539 ([id number]) PHQ-9 - 11285 - PHQ-9 Billing: Yes ([id number]) Comment 97667-92 Assessment & Plan Assessment & Plan (1) Essential hypertension: Comment: - Stable on metprolol tartrate Code(s): I10 - Essential (primary) hypertension Category: Medical (2) PAF (paroxysmal atrial fibrillation): Comment: - Stable on current therapy. - The patient will continue warfarin as managed by a dedicated clinic and metoprolol tartrate 50 mg twice daily. Code(s): I48.0 - Paroxysmal atrial fibrillation Category: Medical (3) Prediabetes: Comment: - A1c is 5.8. - Counselled on dietary modification to prevent progression to diabetes mellrivka pringle. - Glucose levels will be checked with today's blood work. Code(s): R73.03 - Prediabetes Category: Medical (4) Hypothyroidism: Comment: - Well-controlled on current medication. - Last TSH was 1.86. - The patient will continue levothyroxine 88 mcg, and levels will be rechecked with today's labs. Code(s): E03.9 - Hypothyroidism, unspecified Category: Medical Qualifiers: Hypothyroidism type: other Qualified Code(s): E03.8 - Other specified hypothyroidism (5) Tobacco use disorder, continuous: Comment: - The patient currently smokes half a pack a day. - Strongly advised to quit. - Nicotine patches were suggested, though the patient is reluctant. - The patient is exploring a [facility] program. - The patient will continue with annual lung cancer screening via CAT scan at the [facility]. Code(s): F17.209 - Nicotine dependence, unspecified, with unspecified nicotine-induced disorders Category: Medical (6) Annual physical exam: Comment: - The patient is a 74-year-old individual presenting for an annual physical. - Blood work, including sugars, cholesterol, and electrolytes, will be done today. - Will call the patient with any abnormal results. - The patient is up to date on colonoscopy. - Advised to get the influenza and COVID-19 vaccines. - Advised to maintain physical activity. Code(s): Z00.00 - Encounter for general adult medical examination without abnormal findings Category: Medical Plan: Health Maintenance - Screening Labs: Blood work for sugars, cholesterol, electrolytes ordered for today. - Cancer Screening: The patient is up to date on colonoscopy and undergoes annual lung cancer screening with a CAT scan at the [facility], scheduled for tomorrow. - Vaccinations: Advised to get the influenza and COVID-19 vaccines. - Lifestyle: Counseled on smoking cessation with recommendations for nicotine patches or a [facility] program. - Diet and Exercise: Advised to watch diet due to prediabetes and to remain physically active. Patient was informed and verbally consented to the use of an ambient scribe for clinic note documentation during this visit. Vital signs reviewed. Comprehensive history, review of systems, and physical exam completed. Medications, allergies, and problem list reviewed and updated. Counseling provided on nutrition, regular exercise, sleep hygiene, and moderation of alcohol use. Discussed age-appropriate screenings (mammogram, colonoscopy, Pap, bone density) and immunizations (flu, COVID, shingles, Tdap). Screened for depression, fall risk, and home safety; no current concerns. Discussed stress management, dental and vision care, and importance of ongoing preventive follow-up. Routine labs ordered for metabolic and lipid screening. Patient educated on healthy lifestyle and agrees with the plan. Plan I conducted an annual physical and follow-up visit with the patient. I reviewed the patient's medications and recent lab work, noting that the patient's chronic conditions, including atrial fibrillation, hypothyroidism, and hypercholesterolemia, are well-managed. We discussed the A1c of 5.8, and I counseled the patient on the importance of dietary changes to prevent the progression to diabetes. I strongly advised the patient to quit smoking due to the increased risk of cancers and other health issues. I recommended nicotine patches as a cessation tool, although the patient expressed reluctance, and we discussed the patient's plan to investigate a [facility] cessation program. I confirmed the patient is continuing with annual lung cancer screenings. I advised the patient to receive the flu shot and a COVID-19 vaccine. I ordered annual blood work to be completed today and informed the patient that I would call with any abnormal results. Orders: Orders Complete Blood Count Auto Diff Today Z00.00 - Encounter for general adult medical examination without abnormal findings Hepatitis A,B,C Profile Today Z00.00 - Encounter for general adult medical examination without abnormal findings Syphilis Screen Today Z00.00 - Encounter for general adult medical examination without abnormal findings Vitamin D 25-OH Total Today Z00.00 - Encounter for general adult medical examination without abnormal findings Comprehensive Met. Panel Today Z00.00 - Encounter for general adult medical examination without abnormal findings Hemoglobin A1c Today Z00.00 - Encounter for general adult medical examination without abnormal findings Lipid Panel Today Z00.00 - Encounter for general adult medical examination without abnormal findings HIV Ab/Ag Today Z00.00 - Encounter for general adult medical examination without abnormal findings Microalbumin, Random (w Creat) Today Z00.00 - Encounter for general adult medical examination without abnormal findings TSH reflex Free T4 Today Z00.00 - Encounter for general adult medical examination without abnormal findings Patient Instructions: - Go to the hospital lab across the street today to have your blood drawn. - We will call you if there are any problems with your blood work results. - It is very important that you work on quitting smoking. - Watch what you eat because your blood sugar is a little high. - Please get your flu shot and COVID-19 shot. - Keep up with your annual CAT scan of your lungs at the [facility]. - Stay active and make sure you keep walking around.
--- OUTSIDE RECORDS SUMMARY | 2025-02-13 19:19 | XMS_ITS | Patient Health Record ---
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 Name Role Phone Du (RETIRED) Onofre ESCALANTE Primary Care Provide r Shabbir Haji Jr Unavailable [phone] Allergies No Known Allergies Reason For Referral No Information Medications Medication SIG (Take, Route, Frequency, Duration) Notes Start Date End Date Status Levothyroxine Sodium 88 MCG Tablet Oral; Duration: 90 Active Atorvastatin Calcium 40 MG Tablet Oral; Duration: 90 Active Metoprolol Tartrate 50 MG Tablet TAKE 1 TABLET BY MOUTH TWICE A DAY Oral; Duration: 90 Active Warfarin Sodium 7.5 MG Tablet TAKE 1 TABLET BY MOUTH EVERY DAY DIRECTED Oral; Duration: 90 Active Vitamin D (Cholecalciferol) 25 MCG (1000 UT) Capsule 1 capsule Orally Once a day; Duration: 30 day(s) 06/28/2023 Active Fish Oil + D3 6431-3870 MG-UNIT Capsule 1 capsule Orally Three times a day; Duration: 30 day(s) 06/28/2023 Active Immunizations Vaccine Route Administration Date Status Comme nts Influenza Unknown 02/09/2023 Administered Social History Tobacco Use: Social History Observation Description Date Details (start date - stop date) Current Smoker NA - NA Social History Drugs/Alcohol: Social Info Question Answer Notes Alcohol Screen Did you have a drink containing alcohol in the past year? No Points 0 Interpretation Negative Tobacco Use: Social Info Question Answer Notes Tobacco Use/Smoking Patient is a current smoker Additional Details Category Social Info Options Details Miscellaneous: Marital status: single Occupation: retired Problems Problem Type SNOMED Code ICD Code Onset Dates Problem Status W/U Status Risk Notes Problem Colon cancer screening (622724282) Colon cancer screening (Z12.11) Active confirmed Problem Pre-procedure evaluation check (548503754) Encounter for other preprocedural examination (Z01.818) Active confirmed Plan Of Treatment Future Test Test Name Order Date COLONOSCOPY 06/28/2023 Insurance Providers Payer Name Payer Address Payer Phone Subscriber Number Group Number Insured Name Patient Relationship to Insured Coverage Start Date Coverage End Date MEDICARE OF [place] [address] [place] [address] [phone] [id number] [place] Self - patient is the insured Medical (General) History Medical History History ICD Code Coronary artery disease, history of [place] 2 012 Hodgkin's disease 1996 Paroxysmal atrial fibrillation Hypothyroidism Surgical History Surgery Date(Month/Year)
== END 2025-02-13 16:03 | disposition home or self-care (01) ==
LOC: HO.HMCHD 15:48
PROVIDERS: PCP Internal Medicine; Visit Provider Student in an Organized Health Care Education/Training Program
DX: Z00.00 Encounter for general adult medical examination without abnormal findings (principal); I10 Essential (primary) hypertension; I48.0 Paroxysmal atrial fibrillation; R73.03 Prediabetes; E03.8 Other specified hypothyroidism; F17.209 Nicotine dependence, unspecified, with unspecified nicotine-induced disorders

== ENCOUNTER 2025-02-13 15:48 | Outpatient (REF) | payer MEDICARE, SELFPAY ==
[2025-02-13 16:34] LABS: MANUAL DIFF FLAG NO
[2025-02-13 17:15] LABS: Hematocrit 44.2 % (42.0-52.0); Hemoglobin 15.0 g/dl (14.0-18.0); Imm Gran Abs Auto 0.03 X10*3/uL (0.00-0.03); Imm Gran Pct Auto 0.4 % (0.0-0.4); Lymphocytes Absolute Auto 2.2 X10*3/uL (1.2-4.9); Mean Corpuscular HGB Conc 33.9 g/dl (31.0-36.0); Mean Corpuscular Hemoglobin 32.9 pg (27.0-33.0); Mean Corpuscular Volume 96.9 fL (80.0-98.0); NRBC Abs Auto 0.000 X10*3/uL (0.0-0.012); NRBC Pct Auto 0.0 /100WBC (0.0-0.2); Platelet Count 171 X10*3/uL (160-400); Red Blood Count 4.56 X10*6/uL (4.60-5.80); White Blood Count 8.5 X10*3/uL (4.8-10.8)
[2025-02-13 17:50] LABS: Alanine Aminotransferase 37 U/L (0-40); Albumin Level 4.3 g/dL (3.5-5.0); Alkaline Phosphatase 82 U/L (39-117); Anion Gap 11 (12-20); Aspartate Amino Transferase 34 U/L (5-37); Blood Urea Nitrogen 15 mg/dL (9-16); Calcium 9.4 mg/dL (8.4-10.2); Carbon Dioxide 27 mmol/L (22-29); Chloride 109 mmol/L (96-108); Cholesterol 131 mg/dL (<200); Estimated Glomerular Filt Rate > 60; HDL Cholesterol 27 mg/dL (>40); Potassium 4.2 mmol/L (3.3-5.1); Sodium 143 mmol/L (135-145); Total Protein 6.5 g/dL (6.5-8.0); Triglycerides 436 mg/dL (<150)
[2025-02-13 19:51] LABS: Microalbum/Creatinine Ratio Ur 11.4 ug/mg cr (<30)
[2025-02-14 05:09] LABS: Syphilis Screen Nonreactive (Nonreactive)
[2025-02-14 06:03] LABS: HBS Num1 0.00 mIU/mL (0-7.99); HBc Num1 0.04 S/CO (0.00-0.79); HBsAGNum1 0.42 S/CO (0.00-0.99); HIV Num 1 0.05 S/CO (0.00-0.99); Hepatitis A Antibody IgM 0.20 Index (0-0.79); Hepatitis B Surface Antigen Negative (Negative); ~HepC Num1 0.07 S/CO (0.00-0.79); ~Hepatitis A Antibody IgM Nonreactive (Nonreactive); ~Hepatitis B Surface Antibody NONREACTIVE (Nonreactive); ~Hepatitis C Antibody Nonreactive (Nonreactive)
== END 2025-02-13 15:49 | disposition home or self-care (01) ==
LOC: HO.LAB 15:48
PROVIDERS: PCP Internal Medicine; Visit Provider Student in an Organized Health Care Education/Training Program
DX: Z00.00 Encounter for general adult medical examination without abnormal findings (principal); I48.91 Unspecified atrial fibrillation; E03.9 Hypothyroidism, unspecified; I10 Essential (primary) hypertension; I48.0 Paroxysmal atrial fibrillation; R73.03 Prediabetes; E03.8 Other specified hypothyroidism; F17.219 Nicotine dependence, cigarettes, with unspecified nicotine-induced disorders; Z79.01 Long term (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
CPT/HCPCS: 36415; 80053; 80061; 82043; 82306; 82570; 83036; 84443; 85025; 86704; 86706; 86709; 86780; 86803; 87340; 87389; 96127; 99397

== ENCOUNTER 2025-02-19 08:53 | Outpatient (AMB) | payer MEDICARE, SELFPAY ==
--- OUTSIDE RECORDS SUMMARY | 2023-08-27 03:30 | XMS_ITS ---
Author Organization [facility] Address [address] [place] [id number] Care Team Providers Care Manager Wastewater Name Role Phone Du (RETIRED) , Onofre Primary Care Provide r Lynne Do Jr, Shabbir Batista REASON FOR VISIT screening colon Encounters Encounter Location Date Provider Diagnosis [facility] Outpatient [address], [place] [phone] 08/27/2023 Shabbir Do Jr Encounter for screening colonoscopy Z12.11 and Colon polyps K63.5 Assessments Encounter Date Diagnosis (ICD Code) Assessment Notes Treatment Notes Treatment Clinical Notes Section Notes 08/27/2023 Encounter for screening colonoscopy (ICD-10 - Z12.11) 08/27/2023 Colon polyps (ICD-10 - K63.5) Plan Of Treatment No Information Progress Notes * LAN CANAS GDOB:[birth year] (74 yo M)Acc No.[id number]:08/27/2023 COLON WITH MAC Patient: LAN ARIAS Provider: Misael Do MD :1950 A ge:72 Y S ex:Male Date:08/27/2023 Address:[address] [place], [place] [phone] Pcp:Onofre Sandy (RETIRED )MD Subjective: * Chief Complaints: * S creening colon Assessment: * Assessment: 1. E ncounter for screening colonoscopy - Z12.11 (Primary) 2 . C olon polyps - K63.5 Plan: * Procedure Codes: 4 5380 COLONOSCOPY AND [id number] INTRVL 3+YRS PTS CLNSCP DOCD Billing Information: * Procedure Codes: 81798 COLONOSCOPY AND BIOPSY. 0529F INTRVL 3+YRS PTS CLNSCP DOCD. * The named appointment provid er may or may not be the originator of this progress note, and it is not deemed complete until electronically signed by the appointment provider. Sign off status: Pending * Provider: Misael Do MD Date: 0 08/27/2023 Generated for Clem smith/Sandra/Azizaitting on: 04/22/2024 10:00 AM EST
--- NOTE | 2025-02-19 08:58 | MHC.OFFVISCO ---
Intake Intake Visit Reasons: Anticoagulation Allergies Seasonal Allergies Adverse Reaction (Mild, Verified 02/19/25 08:54) Nasal congestion Medication List - Last Reconciled 02/19/25 by Suzanne Chairez RN atorvastatin 40 mg PO DAILY cholecalciferol (vitamin D3) 25 mcg PO DAILY levothyroxine 88 mcg PO DAILY metoprolol tartrate 50 mg PO BID nitroglycerin 0.3 mg sublingual Q5M PRN omega-3 fatty acids (Fish Oil Concentrate) 1,000 mg PO BID warfarin See Protocol 11.25mg x 2 days/ 7.5mg x 5days , take 1-2 tabs daily per INR per Anticoagulation Services Nursing Note INR 1.2-?? out of therapeutic range of 2-3 Medications and supplements reviewed Patient status: pt last acs appt 01/12/25- pt denies missed doses of warfarin Medications or supplements: no changes Diet: appetite is good Denies any signs and symptoms of bleeding or clotting or unusual bruising Bleeding, bruising, clotting discussed - aware of risk of clotting Nutritional guidance given: no greens for 2-3 days, eat reds to raise Dose: increase dose to 15mg today then 11.25mg tomm and cont reg dosing F/U INR Date : wednesday02/23/25?? Patient verbalizing understanding of instructions given. t/c placed to pcp office Dr Dalton to report low inr, dosing and f/u appt - spoke to Rossana at 0918 Anti-Coag Initial Assessment Social Hx Patient Tobacco Use Status: Current everyday Tobacco user alcohol intake: never Coding Level of Care Code Est Patient Level 1 Diagnoses Current use of anticoagulant therapy Z79.01 Assessment & Plan Assessment & Plan (1) Current use of anticoagulant therapy: Code(s): Z79.01 - group home (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 Category: Medical
[2025-02-19 08:59] LABS: Prothrombin Time Whole Bld POC 14.7 sec (11.1-13.5); ~PT, ~INR - Anti Coag Clinic 1.2 (0.9-1.1)
--- OUTSIDE RECORDS SUMMARY | 2025-02-19 10:01 | XMS_ITS | Patient Health Record ---
Author Organization [facility] Address [address] [place] [address] Care Team Providers Care Assembly Member Name Role Phone Du (RETIRED) Onofre ESCALANTE [...] day(s) 06/28/2023 Active Fish Oil + D3 8532-5060 MG-UNIT Capsule 1 capsule Orally Three times [...] Status Risk Notes Problem Colon cancer screening (281187043) Colon cancer screening (Z12.11) Active confirmed Problem Pre-procedure evaluation check (997349637) Encounter for other preprocedural examination (Z01.818) Active confirmed Plan Of Treatment Future Test Test Name Order Date COLONOSCOPY 06/28/2023 Insurance Providers Payer Name Payer Address Payer Phone Subscriber Number Group Number Insured Name Patient Relationship to Insured Coverage Start Date Coverage End Date MEDICARE OF [place] [address] [place] [id number] [phone] [id number] [employer] [place] Self - patient is the insured Medical (General) History Medical History History ICD Code Coronary artery disease, [place] of [place] 2 012 Hodgkin's disease 1996 Paroxysmal atrial fibrillation Hypothyroidism Surgical History Surgery Date(Month/Year)
== END 2025-02-19 09:20 | disposition home or self-care (01) ==
LOC: HO.ACS 08:53
PROVIDERS: PCP Student in an Organized Health Care Education/Training Program; Visit Provider Internal Medicine Medical Oncology
DX: Z79.01 Long term (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 (principal)

== ENCOUNTER → 2025-02-19 08:53 | Outpatient (BNVA) | payer MEDICARE, SELFPAY | PROVIDERS: PCP Student in an Organized Health Care Education/Training Program; Visit Provider Internal Medicine Medical Oncology | DX: I48.19 Other persistent atrial fibrillation (principal); Z51.81 Encounter for therapeutic drug level monitoring; Z79.01 Long term (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 | CPT/HCPCS: 85610; 99211 ==

== ENCOUNTER 2025-02-23 11:02 | Outpatient (AMB) | payer MEDICARE, SELFPAY ==
[2025-02-23 11:08] LABS: Prothrombin Time Whole Bld POC 20.9 sec (11.1-13.5); ~PT, ~INR - Anti Coag Clinic 1.7 (0.9-1.1)
--- NOTE | 2025-02-23 11:11 | MHC.OFFVISCO ---
Intake Intake Visit Reasons: Anticoagulation Allergies Seasonal Allergies Adverse Reaction (Mild, Verified 02/23/25 11:03) Nasal congestion Medication List - Last Reconciled 02/23/25 by Shirley Wang RN atorvastatin 40 mg PO DAILY cholecalciferol (vitamin D3) 25 mcg PO DAILY levothyroxine 88 mcg PO DAILY metoprolol tartrate 50 mg PO BID nitroglycerin 0.3 mg sublingual Q5M PRN omega-3 fatty acids (Fish Oil Concentrate) 1,000 mg PO BID warfarin See Protocol 11.25mg x 2 days/ 7.5mg x 5days , take 1-2 tabs daily per INR per Anticoagulation Services Nursing Note INR: 1.7 out of therapeutic range of 2-3 Previous INR 1.2 on 02/19/25 Medications and supplements reviewed Patient status: feels well Medications or supplements: no changes Diet: has been avoiding greens Denies any signs and symptoms of bleeding or clotting or unusual bruising Bleeding, bruising, clotting discussed Nutritional guidance given: to avoid greens X 2 more days Dose: increase today's dose to 15mg then usual dose of 7.5mg X 5 days and 11.25mg X 2 days (Tues & Fri) F/U INR Date: 03/02/25?? Patient verbalizing understanding of instructions given. 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
== END 2025-02-23 11:16 | disposition home or self-care (01) ==
LOC: HO.ACS 11:02
PROVIDERS: PCP Student in an Organized Health Care Education/Training Program; Visit Provider Internal Medicine Medical Oncology
DX: Z79.01 Long term (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 (principal)

== ENCOUNTER → 2025-02-23 11:02 | Outpatient (BNVA) | payer MEDICARE, SELFPAY | PROVIDERS: PCP Student in an Organized Health Care Education/Training Program; Visit Provider Internal Medicine Medical Oncology | DX: Z79.01 Long term (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 (principal) | CPT/HCPCS: 85610; 99211 ==

== ENCOUNTER 2025-03-09 08:31 | Outpatient (AMB) | payer MEDICARE, SELFPAY ==
--- OUTSIDE RECORDS SUMMARY | 2025-03-09 08:39 | XMS_ITS | Patient Health Record ---
Author Organization [facility] Address [address] [place] [address] Care Team Providers Care Plating Technician Name Role Phone Du (RETIRED) Onofre ESCALANTE Primary Care Provide r Shabbir Haij Jr Unavailable [phone] Allergies No Known Allergies Reason For Referral [...] day(s) 06/28/2023 Active Fish Oil + D3 9667-7355 MG-UNIT Capsule 1 capsule Orally Three times [...] Status Risk Notes Problem Colon cancer screening (031237354) Colon cancer screening (Z12.11) Active confirmed Problem Pre-procedure evaluation check (786587676) Encounter for other preprocedural examination (Z01.818) Active confirmed Plan Of Treatment Future Test Test Name Order Date COLONOSCOPY 06/28/2023 Insurance Providers Payer Name Payer Address Payer Phone Subscriber Number Group Number Insured Name Patient Relationship to Insured Coverage Start Date Coverage End Date MEDICARE OF [place] [address] [place] [id number] [phone] [id number] [employer] [place] Self - patient is the insured Medical (General) History Medical History History ICD Code Coronary artery disease, history of [place] 2 012 Hodgkin's disease 1996 Paroxysmal atrial fibrillation Hypothyroidism Surgical History Surgery Date(Month/Year)
[2025-03-09 08:44] LABS: Prothrombin Time Whole Bld POC 20.0 sec (11.1-13.5); ~PT, ~INR - Anti Coag Clinic 1.7 (0.9-1.1)
--- NOTE | 2025-03-09 08:48 | MHC.OFFVISCO ---
Intake Intake Visit Reasons: Anticoagulation Allergies Seasonal Allergies Adverse Reaction (Mild, Verified 03/09/25 08:40) Nasal congestion Medication List - Last Reconciled 03/09/25 by Shirley Wang, RN atorvastatin 40 mg PO DAILY cholecalciferol (vitamin D3) 25 mcg PO DAILY levothyroxine 88 mcg PO DAILY metoprolol tartrate 50 mg PO BID nitroglycerin 0.3 mg sublingual Q5M PRN omega-3 fatty acids (Fish Oil Concentrate) 1,000 mg PO BID warfarin See Protocol 11.25mg x 2 days/ 7.5mg x 5days , take 1-2 tabs daily per INR per Anticoagulation Services Nursing Note INR: 1.7 out of therapeutic range of 2-3 Medications and supplements reviewed Patient status: feels well Medications or supplements: no changes Diet: usual diet for pt Denies any signs and symptoms of bleeding or clotting or unusual bruising Bleeding, bruising, clotting discussed Nutritional guidance given: to avoid greens today INR has been low since Sept so will increase weekly dose. Dose: increase today's dose from 11.25mg to 15mg then 7.5mg X 4 days and 11.25mg X 3 (M/W/F) F/U INR Date: 1 week?? Patient verbalizing understanding of instructions given. 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
== END 2025-03-09 08:57 | disposition home or self-care (01) ==
LOC: HO.ACS 08:31
PROVIDERS: PCP Student in an Organized Health Care Education/Training Program; Visit Provider Internal Medicine Medical Oncology
DX: Z79.01 Long term (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 (principal)

== ENCOUNTER → 2025-03-09 08:31 | Outpatient (BNVA) | payer MEDICARE, SELFPAY | PROVIDERS: PCP Student in an Organized Health Care Education/Training Program; Visit Provider Internal Medicine Medical Oncology | DX: I48.19 Other persistent atrial fibrillation (principal); Z51.81 Encounter for therapeutic drug level monitoring; Z79.01 Long term (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 | CPT/HCPCS: 85610; 99211 ==

== ENCOUNTER 2025-03-20 09:54 | Outpatient (AMB) | payer MEDICARE, SELFPAY ==
[2025-03-20 10:09] LABS: Prothrombin Time Whole Bld POC 37.6 sec (11.1-13.5); ~PT, ~INR - Anti Coag Clinic 3.1 (0.9-1.1)
--- NOTE | 2025-03-20 10:25 | MHC.OFFVISCO ---
Intake Intake Visit Reasons: Anticoagulation Allergies Seasonal Allergies Adverse Reaction (Mild, Verified 03/20/25 10:08) Nasal congestion Medication List - Last Reconciled 03/20/25 by Valerie Mcnally RN atorvastatin 40 mg PO DAILY cholecalciferol (vitamin D3) 25 mcg PO DAILY levothyroxine 88 mcg PO DAILY metoprolol tartrate 50 mg PO BID nitroglycerin 0.3 mg sublingual Q5M PRN omega-3 fatty acids (Fish Oil Concentrate) 1,000 mg PO BID warfarin See Protocol 11.25mg x 2 days/ 7.5mg x 5days , take 1-2 tabs daily per INR per Anticoagulation Services Nursing Note INR 3.1 range 2-3 out of therapeutic range Medications and supplements reviewed, fish oil supplement is 1,000 mg tabs it was previously 1200mg tabs about a month ago. Patient status: no changes Medications or supplements: fish oil mg amount but no other changes Diet: had less greens for previuos INR testing, Denies any signs and symptoms of bleeding or clotting or unusual bruising Bleeding, bruising, clotting discussed Nutritional guidance given: enc to have more greens this week to include broccoli along with the green beans and lettuce Dose: 11.25mg M-W-F, 7.5mg x 4 days F/U INR Date :04/06/25 Patient verbalizing understanding of instructions given. 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
--- OUTSIDE RECORDS SUMMARY | 2025-03-20 12:53 | XMS_ITS | Patient Health Record ---
Author Organization [facility] Address [address] [place] [address] Care Team Providers Care Car Icer Name Role Phone Du (RETIRED) Onofre ESCALANTE [...] day(s) 06/28/2023 Active Fish Oil + D3 [id number] MG-UNIT Capsule 1 capsule Orally Three times [...] Status Risk Notes Problem Colon cancer screening (479208136) Colon cancer screening (Z12.11) Active confirmed Problem Pre-procedure evaluation check (807375894) Encounter for other preprocedural examination (Z01.818) Active confirmed Plan Of Treatment Future Test Test Name Order Date COLONOSCOPY 06/28/2023 Insurance Providers Payer Name Payer Address Payer Phone Subscriber Number Group Number Insured Name Patient Relationship to Insured Coverage Start Date Coverage End Date MEDICARE OF [place] [address] [place] [id number] [phone] [id number] [place] Self - patient is the insured Medical (General) History Medical History History ICD Code Coronary artery disease, history of [place] 2 012 Hodgkin's disease 1996 Paroxysmal atrial fibrillation Hypothyroidism Surgical History Surgery Date(Month/Year)
== END 2025-03-20 10:31 | disposition home or self-care (01) ==
LOC: HO.ACS 09:54
PROVIDERS: PCP Student in an Organized Health Care Education/Training Program; Visit Provider Internal Medicine Medical Oncology
DX: Z79.01 Long term (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 (principal)

== ENCOUNTER → 2025-03-20 09:54 | Outpatient (BNVA) | payer MEDICARE, SELFPAY | PROVIDERS: PCP Student in an Organized Health Care Education/Training Program; Visit Provider Internal Medicine Medical Oncology | DX: I48.20 Chronic atrial fibrillation, unspecified (principal); Z51.81 Encounter for therapeutic drug level monitoring; Z79.01 Long term (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 | CPT/HCPCS: 85610; 99211 ==